=== PATIENT | female | born 1945 | race African-American/Black ===

== ENCOUNTER 2022-10-07 03:26 | Inpatient (IN) | payer OTHER, MEDICAID ==
[2022-10-07] VITALS (7 sets, daily range): BP systolic 142; BP diastolic 66; PULSE 71–80; RESP 12–22; TEMP 97.9; O2SAT 91–100
[~2022-10-07] VITALS: Ht 157.5 cm; Wt 82.9 kg
[2022-10-07 04:38] LABS: Basophils # (auto) 0 10 ^3/uL (0-0.2); Basophils % (auto) 0.7 % (0.0-2.0); Eosinophils # (auto) 0.1 10 ^3/uL (0-0.8); Eosinophils % (auto) 1.3 % (0.0-7.0); Hematocrit 33.2 % (36.0-46.0); Hemoglobin 10.4 g/dL (12.2-16.2); Lymphocytes % (auto) 20.4 % (10.0-50.0); Mean Corpuscular Hemoglobin 29.3 pg (28.0-32.0); Mean Corpuscular Hgb Conc. 31.4 g/dL (32.0-36.0); Mean Corpuscular Volume 93.5 fL (80.0-100.0); Monocytes # (auto) 0.5 10 ^3/uL (0-1.3); Monocytes % (auto) 9.8 % (0.0-12.0); Neutrophils # (auto) 3.4 10 ^3/uL (1.6-8.6); Neutrophils % (auto) 67.8 % (37.0-80.0); Nucleated Red Blood Cells % 0.2 %; Red Blood Cells 3.55 10^6/uL (4.0-5.20); Red Cell Distribution Width 17.7 % (11.8-14.3)
[2022-10-07 04:45] LABS: INR 1.04 (0.9-1.15); Partial Thromboplastin Time 29.5 SEC (24.5-34.5); Prothrombin Time 10.9 sec (9.3-11.8)
[2022-10-07 04:50] LABS: BUN/Creatinine Ratio 5.4 (10.0-20.0); Calcium 8.1 mg/dL (8.7-10.4); Magnesium 2.7 mg/dL (1.6-2.6); Potassium 3.7 mmol/L (3.5-5.1)
[2022-10-07 04:53] LABS: Bilirubin, Total 0.4 mg/dL (0.2-1.0); Total Protein 6.2 g/dL (6.4-8.2)
[2022-10-07] MEDS ORDERED: NITROGLYCERIN 0.4 MG SL TAB SL PRN (09:30)
[2022-10-07] MEDS ORDERED: ONDANSETRON HCL 4 MG/2 ML VIAL IV ONE (09:45)
[2022-10-07] MEDS ORDERED: ACETAMINOPHEN 500 MG TAB PO PRN (09:45)
[2022-10-07] MEDS ORDERED: ONDANSETRON HCL 4 MG/2 ML VIAL IV PRN (09:45)
[2022-10-07] MEDS ORDERED: CARVEDILOL 12.5 MG TAB PO SCH (10:00)
[2022-10-07] MEDS: IPRATROPIUM BROM 0.5 MG/2.5ML INH SOL NEB SCH ×2 (11:33→17:59)
[2022-10-07] MEDS: ALBUTEROL SULF 2.5 MG/0.5ML(0.5%) NEB SOLN NEB PRN ×2 (11:33→17:59)
[2022-10-07] MEDS: PANTOPRAZOLE 40 MG TAB PO SCH (11:40)
[2022-10-07 14:01] LABS: Urine Bacteria NONE SEEN /hpf (None Seen); Urine Blood TRACE /uL (Negative); Urine Clarity HAZY (Clear); Urine Color Colorless (Yellow); Urine Protein, UAD 2+ (Negative); Urine Specific Gravity 1.008 (1.001-1.035); Urine Urobilinogen Normal (Negative); Urine WBC 111 /hpf (0 - 5); Urine WBC Clumps PRESENT /hpf (None Seen); Urine pH 7.5 (5.0-8.0)
[2022-10-07] MEDS ORDERED: cefTRIAXone 1GM/50ML D5W 50 ML IV ONE (15:30)
[2022-10-07] MEDS ORDERED: DEXTROSE (50%) 50ML SYRG IV PRN (15:30)
[2022-10-07] MEDS ORDERED: hydrALAZINE HCL 20 MG/ML VL IV PRN (15:30)
[2022-10-07] MEDS: InsuLIN REG 1unit/0.01ml Soln (100units/ml) SC SCH ×2 (17:00→21:29)
[2022-10-07] MEDS: ACCU-CHEK COMFORT CURVE STRIP VI SCH ×2 (17:18→21:24)
[2022-10-07] MEDS: CARVEDILOL 12.5 MG TAB PO SCH (21:29)
[2022-10-07] MEDS: ATORVASTATIN 20 MG TAB PO SCH (21:29)
[2022-10-08] VITALS (17 sets, daily range): BP systolic 116–142; BP diastolic 42–54; PULSE 69–84; RESP 6–20; TEMP 97.8–98.6; O2SAT 94–100
[2022-10-08] MEDS: IPRATROPIUM BROM 0.5 MG/2.5ML INH SOL NEB SCH ×5 (01:13→22:54)
[2022-10-08] MEDS: ALBUTEROL SULF 2.5 MG/0.5ML(0.5%) NEB SOLN NEB PRN ×3 (01:13→11:45)
[2022-10-08] MEDS ORDERED: CARV25TA55 PO (04:43)
[2022-10-08] MEDS ORDERED: METO-517 PO (04:43)
[2022-10-08] MEDS ORDERED: PERCOT PO (04:43)
[2022-10-08] MEDS ORDERED: LOVA40TA72 PO (04:43)
[2022-10-08] MEDS ORDERED: SITA50TA PO (04:43)
[2022-10-08] MEDS ORDERED: ASCO500T11 PO (04:46)
[2022-10-08] MEDS ORDERED: CRAN1000 PO (04:46)
[2022-10-08] MEDS ORDERED: FOLI-119 PO (04:46)
[2022-10-08] MEDS ORDERED: FERR1TAB36 PO (04:46)
[2022-10-08] MEDS: ACCU-CHEK COMFORT CURVE STRIP VI SCH ×4 (06:55→22:13)
[2022-10-08] MEDS: InsuLIN REG 1unit/0.01ml Soln (100units/ml) SC SCH ×4 (06:56→22:17)
[2022-10-08] MEDS: PANTOPRAZOLE 40 MG TAB PO SCH (09:40)
[2022-10-08] MEDS: cefTRIAXone 1GM/50ML D5W 50 ML IV SCH (09:41)
[2022-10-08] MEDS: CARVEDILOL 12.5 MG TAB PO SCH ×2 (09:55→22:00)
[2022-10-08] MEDS: LISINOPRIL 20 MG TAB PO SCH (09:56)
[2022-10-08 12:00] LABS: Basophils # (auto) 0 10 ^3/uL (0-0.2); Eosinophils # (auto) 0.1 10 ^3/uL (0-0.8); Hemoglobin 9.8 g/dL (12.2-16.2); Lymphocytes # (auto) 1.5 10 ^3/uL (0.4-5.4); Neutrophils # (auto) 3.3 10 ^3/uL (1.6-8.6); Nucleated Red Blood Cells % 0.1 %; White Blood Cell 5.4 10^3/uL (4.4-10.8)
[2022-10-08 12:05] LABS: Basophils % (auto) 0.4 % (0.0-2.0); Eosinophils % (auto) 1.5 % (0.0-7.0); Hematocrit 31.5 % (36.0-46.0); Mean Corpuscular Hemoglobin 29.9 pg (28.0-32.0); Mean Corpuscular Hgb Conc. 31.1 g/dL (32.0-36.0); Mean Corpuscular Volume 96.2 fL (80.0-100.0); Monocytes # (auto) 0.5 10 ^3/uL (0-1.3); Monocytes % (auto) 10.1 % (0.0-12.0); Red Blood Cells 3.27 10^6/uL (4.0-5.20); Red Cell Distribution Width 17.4 % (11.8-14.3)
[2022-10-08 12:06] LABS: Anion Gap 7.3 (5-15); Calcium 8.7 mg/dL (8.5-10.1); Carbon Dioxide 35.7 mmol/L (20-30); Chloride 98 mmol/L (98-107); Potassium 3.4 mmol/L (3.5-5.1); Sodium 141 mmol/L (136-145)
[2022-10-08 12:12] LABS: BUN/Creatinine Ratio 6.3 (10.0-20.0); Blood Urea Nitrogen 29 mg/dL (9-23); Glucose 86 mg/dL (74-106)
[2022-10-08 16:24] LABS: Free T4 (Free Thyroxine) 1.91 ng/dL (0.89-1.76); T3 Total 0.77 ng/mL (0.60-1.81)
[2022-10-08] MEDS: ATORVASTATIN 20 MG TAB PO SCH (21:59)
[2022-10-09] VITALS (9 sets, daily range): BP systolic 122–145; BP diastolic 37–52; PULSE 69–81; RESP 16–18; TEMP 98.1–98.9; O2SAT 99–100
[2022-10-09] MEDS: ACCU-CHEK COMFORT CURVE STRIP VI SCH ×3 (06:18→17:23)
[2022-10-09] MEDS: InsuLIN REG 1unit/0.01ml Soln (100units/ml) SC SCH ×3 (06:19→17:00)
[2022-10-09 06:27] LABS: Basophils # (auto) 0 10 ^3/uL (0-0.2); Eosinophils # (auto) 0.1 10 ^3/uL (0-0.8); Lymphocytes # (auto) 1.3 10 ^3/uL (0.4-5.4); Nucleated Red Blood Cells % 0.2 %
[2022-10-09 06:29] LABS: Basophils % (auto) 0.5 % (0.0-2.0); Eosinophils % (auto) 1.5 % (0.0-7.0); Hematocrit 33.1 % (36.0-46.0); Hemoglobin 10.4 g/dL (12.2-16.2); Mean Corpuscular Hemoglobin 30.7 pg (28.0-32.0); Mean Corpuscular Hgb Conc. 31.5 g/dL (32.0-36.0); Mean Corpuscular Volume 97.5 fL (80.0-100.0); Monocytes # (auto) 0.6 10 ^3/uL (0-1.3); Monocytes % (auto) 8.7 % (0.0-12.0); Neutrophils # (auto) 4.5 10 ^3/uL (1.6-8.6); Neutrophils % (auto) 69.3 % (37.0-80.0); Red Cell Distribution Width 17.4 % (11.8-14.3); White Blood Cell 6.4 10^3/uL (4.4-10.8)
[2022-10-09 06:31] LABS: Chloride 100 mmol/L (98-107); Sodium 139 mmol/L (136-145)
[2022-10-09 06:32] LABS: Anion Gap 5.8 (5-15); Calcium 8.7 mg/dL (8.7-10.4); Carbon Dioxide 33.2 mmol/L (20-30)
[2022-10-09 06:37] LABS: Blood Urea Nitrogen 24 mg/dL (9-23); Glucose 104 mg/dL (74-106)
[2022-10-09] MEDS: ALBUTEROL SULF 2.5 MG/0.5ML(0.5%) NEB SOLN NEB PRN ×2 (06:39→12:23)
[2022-10-09] MEDS: IPRATROPIUM BROM 0.5 MG/2.5ML INH SOL NEB SCH ×3 (06:39→18:00)
[2022-10-09] MEDS: cefTRIAXone 1GM/50ML D5W 50 ML IV SCH (08:59)
[2022-10-09] MEDS: LISINOPRIL 20 MG TAB PO SCH (09:28)
[2022-10-09] MEDS: CARVEDILOL 12.5 MG TAB PO SCH (09:28)
[2022-10-09] MEDS: PANTOPRAZOLE 40 MG TAB PO SCH (09:28)
[2022-10-09] MEDS ORDERED: CEFD300C2 PO (14:35)
== END 2022-10-09 18:20 | disposition home or self-care (01) | DRG 640 ==
LOC: ER 03:26 → EDBD 03:26 → OVERFLOW 13:41 → WEST WING 23:59
PROVIDERS: ADMIT Internal Medicine; ATTEND Student in an Organized Health Care Education/Training Program
PROC: 5A1D70Z Performance of Urinary Filtration, Intermittent, Less than 6 Hours Per Day (ICD-10-PCS; principal; 2022-10-08)
DX: E86.0 Dehydration (principal); N18.6 End stage renal disease; G45.0 Vertebro-basilar artery syndrome; I12.0 Hypertensive chronic kidney disease with stage 5 chronic kidney disease or end stage renal disease; I95.3 Hypotension of hemodialysis; N30.90 Cystitis, unspecified without hematuria; E11.22 Type 2 diabetes mellitus with diabetic chronic kidney disease; E78.5 Hyperlipidemia, unspecified; J45.909 Unspecified asthma, uncomplicated; K80.20 Calculus of gallbladder without cholecystitis without obstruction; R55 Syncope and collapse; E66.9 Obesity, unspecified; D63.1 Anemia in chronic kidney disease; M89.8X9 Other specified disorders of bone, unspecified site; Z99.2 Dependence on renal dialysis; Z90.49 Acquired absence of other specified parts of digestive tract
CPT/HCPCS: 36415; 70450; 71045; 74176; 80048; 80053; 81001; 82962; 83036; 83735; 83880; 84439; 84443; 84480; 84484; 85025; 85610; 85730; 87081; 87086; 90935; 93005; 93306; 93886; 94640; 96365; 96375; G0378; J0696; J1815; J2405

== ENCOUNTER 2025-01-05 03:28 | Inpatient (IN) | payer OTHER ==
[~2025-01-05] VITALS: Ht 157.5 cm; Wt 66.1 kg
[~2025-01-05 03:28] MED LIST: ASCO500T11 PO; CARV25TA55 PO; CEFD300C2 PO; CRAN1000 PO; FERR1TAB36 PO; FOLI-119 PO; LOVA40TA72 PO; METO10TA4 PO; PERCOT PO; SITA50TA PO
--- NOTE | 2025-01-05 03:48 | ECG ---
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
--- NOTE | 2025-01-05 03:53 | ED.PDOC ---
History of Present Illness HPI Comments 79 year old female with PMHx ESRD, asthma, HTN, DM, presents to the ED via EMS with a chief complaint of shortness of breath onset 10 days. Per EMS, patient has dialysis fistula on LT arm, 3 weeks ago had a blockage, was removed and new fistula was placed. For the past 10 days, patient has been experiencing LT arm swelling, pain, LT breast swelling, LT facial swelling, shortness of breath, chest pressure. Patient gets dialysis Thursday, , Thursday. Has been seen at [facility] for similar symptoms. Patient is on home O2, 2L NC. Denies fever, chills, nausea, vomiting, diarrhea, numbness/tingling, abdominal pain, hematemesis, headache. No other symptoms or modifying factors present at this time. PHYSICAL EXAM: General: Awake, alert and oriented. Skin: Skin in warm, dry and intact. Appropriate color for ethnicity. HEENT: The head is normocephalic and atraumatic. Conjunctivae are clear without exudates or hemorrhage. Sclera is non-icteric. Eyelids are normal in appearance without swelling or lesions. Oral mucosa is pink and moist Neck: The neck is supple with normal range of motion. No JVD. Cardiac: Heart rate and rhythm are normal. No murmurs, gallops, or rubs are auscultated. Respiratory: No signs of respiratory distress. Lung sounds are clear in all lobes bilaterally without rales, rhonchi, or wheezes. Abdominal: Abdomen is soft, non-tender without distention, guarding or rigidity. Bowel sounds are present and normoactive in all four quadrants. Extremities: LT upper extremity swelling,mild erythema Neurological: The patient is awake, alert and oriented to person, place, and time with normal speech. Speech is clear. There is no facial asymmetry. Psychiatric: Appropriate mood and affect. Good judgement and insight. REVIEW OF SYSTEMS: General: No fever, no chills, or fatigue HEENT: No sore throat, no earache, no congestion, no neck pain. Cardiac: chest pain. No palpitations. Lungs: shortness of breath, no cough. GI: No nausea, no vomiting, no diarrhea, no constipation, no abdominal pain : No dysuria, frequency, or urgency. No hematuria. Musculoskeletal: LT arm swelling, LT breast swelling. Skin: No rash, no itching. Neuro: No headache, no dizziness, no weakness (And as sated in HPI) Chief Complaint: Shortness of Breath Time Seen by MD: 03:39 Reviewed Notes: Medications, Allergies Allergies: Coded Allergies: Aspirin (Verified Allergy, Unknown, 10/07/22) Penicillins (Verified Allergy, Unknown, 10/07/22) Home Meds Active Scripts Cefdinir (Cefdinir) 300 Mg Cap, 300 MG PO BID for 7 Days, #14 CAP Prov:DEBORAH VILLATORO MD 10/09/22 Reported Medications Ferrous Sulfate (Iron (Ferrous Sulfate)) 50 Mg Tab, 65 MG PO, TAB 10/08/22 Folic Acid (Folic Acid) 1 Mg Tab, 1 MG PO DAILY for 30 Days, MG 10/08/22 Cranberry (Cranberry Juice Extract) 1,000 Mg Cap, 1500 MG PO DAILY, CAP 10/08/22 Ascorbic Acid (VITAMIN C TABLET) 500 Mg Tb, 1 TAB PO DAILY, #30 TAB 3 Refills 10/08/22 Oxycodone W/ Acetaminophen (Percocet 5/325MG) 1 Tab Tb, 2 TAB PO TID, #90 TAB 10/08/22 Metoclopramide HCl (Metoclopramide Hydrochlor) 10 Mg Tab, 1 TAB PO BID 10/08/22 Carvedilol (Carvedilol) 25 Mg Tab, 1 TAB PO BID 10/08/22 Lovastatin (Lovastatin) 40 Mg Tab, 1 TAB PO DAILY 10/08/22 Sitagliptin Phosphate (Januvia) 50 Mg Tab, 1 TAB PO DAILY 10/08/22 Information Source: Patient, Emergency Med Personnel Mode of Arrival: EMS Severity: Moderate Timing: Days Prehospital treatment: None Past Medical History PAST MEDICAL HISTORY: Asthma, Cancer, DM, ESRD, HTN Surgical History: Appendectomy, Hernia Repair ELECTRICAL SIGN WIRER History: No Pertinent ELECTRICAL SIGN WIRER History Family History Family History: Reviewed,noncontributory to illness Social History Smoker: Non-Smoker Alcohol: Denies ETOH Use Drugs: Denies Drug Use Lives In: Home Was a procedure done? Was a procedure done?: No EKG EKG : Pulse Rate (adult): 87 Cardiac Rhythm: NSR Differential Dx Considerations may include: Differential diagnoses considered includebut arenot limited to acute Bronchitis, Asthma, COPD, Pneumothorax, PE, CHF, Pulmonary HTN, Anemia, CO Poisoning, Methemoglobinemia, Hyperventilation, Metabolic Acidosis, Pulmonary Edema, Pneumonia, ACS, Pericardial Tamponade, Anxiety, other X-Ray, Labs, Meds, VS Vital Signs Date Time Temp Pulse Resp B/P (MAP) Pulse Ox O2 Delivery O2 Flow Rate FiO2 01/05/25 03:53 87 01/05/25 03:38 98.6 94 22 196/68 97 98.6 01/05/25 03:37 87 Lab Test 01/05/25 04:27 Range/Units White Blood Count 4.5 4.4-10.8 10^3/uL Red Blood Count 3.58 L 4.0-5.20 10^6/uL Hemoglobin 10.9 L 12.2-16.2 g/dL Hematocrit 35.6 L 36.0-46.0 % Mean Corpuscular Volume 99.7 80.0-100.0 fL Mean Corpuscular Hemoglobin 30.4 28.0-32.0 pg Mean Corpuscular Hemoglobin Concent 30.5 L 32.0-36.0 g/dL Red Cell Distribution Width 20.6 H 11.8-14.3 % Platelet Count 129 L 140-450 10^3/uL Mean Platelet Volume 8.4 6.9-10.8 fL Neutrophils (%) (Auto) 55.7 37.0-80.0 % Lymphocytes (%) (Auto) 29.4 10.0-50.0 % Monocytes (%) (Auto) 12.1 H 0.0-12.0 % Eosinophils (%) (Auto) 1.4 0.0-7.0 % Basophils (%) (Auto) 1.4 0.0-2.0 % Neutrophils # (Auto) 2.5 1.6-8.6 10 ^3/uL Lymphocytes # (Auto) 1.3 0.4-5.4 10 ^3/uL Monocytes # (Auto) 0.5 0-1.3 10 ^3/uL Eosinophils # (Auto) 0.1 0-0.8 10 ^3/uL Basophils # (Auto) 0.1 0-0.2 10 ^3/uL Nucleated Red Blood Cells 0.2 % Sodium Level 143 136-145 mmol/L Potassium Level 4.0 3.5-5.1 mmol/L Chloride Level 103 98-107 mmol/L Carbon Dioxide Level 29 20-31 mmol/L Anion Gap 11 5-15 Blood Urea Nitrogen 33 H 9-23 mg/dL Creatinine 6.71 H 0.550-1.02 mg/dL Glomerular Filtration Rate Calc 6 >90 mL/min BUN/Creatinine Ratio 4.9 L 10.0-20.0 Serum Glucose 110 H 74-106 mg/dL Calcium Level 9.2 8.7-10.4 mg/dL Total Bilirubin 0.3 0.2-1.0 mg/dL Direct Bilirubin 0.1 <0.3 mg/dL Aspartate Amino Transferase (AST) 20 13-40 U/L Alanine Aminotransferase (ALT) 14 7-40 U/L Alkaline Phosphatase 77 46-116 U/L Troponin I High Sensitivity 22 </=34 ng/L B-Type Natriuretic Peptide 589.69 0-100 pg/mL Total Protein 6.4 5.7-8.2 g/dL Albumin 3.6 3.2-4.8 g/dL Time of 1ST Reevaluation: 03:47 Reevaluation 1ST: Unchanged Patient Education/Counseling: Need For Follow Up Family Education/Counseling: No Family Present SEPSIS Sepsis Screen Physician Orders Electrocardigram (01/05/25 03:36) Chest Xray 1 View (01/05/25 04:06) Vital Signs Date Time Temp Pulse Resp B/P (MAP) Pulse Ox O2 Delivery O2 Flow Rate FiO2 01/05/25 03:53 87 01/05/25 03:38 98.6 94 22 196/68 97 98.6 01/05/25 03:37 87 Laboratory Tests Test 01/05/25 04:27 White Blood Count 4.5 10^3/uL (4.4-10.8) Departure 1 Departure Time of Disposition: 05:02 Impression: Primary Impression: Left upper extremity swelling Disposition: ADMITTED INPATIENT Condition: Stable Comments MDM: 79 yo female with RUE swelling. She reports recently having negative RUE US for DVT. Patient admitted to hospitalist service for further treatment, evaluation and monitoring. Pending CT chest w/ contrast to evaluate for possible venous stenosis, mass or other potential etiology of patient's symptoms. Critical Care Note Critical Care Time?: No Stability Stability form required: No Heart Score Heart Score: Heart Score Response (Comments) Value History N/A 0 EKG N/A 0 Age N/A 0 Risk Factors N/A 0 Troponin N/A 0 Total 0 I personally scribed for GENIA GOMEZ MD ([email or web address]) on 01/05/25 at 03:53. Electronically submitted by Yasmin Avila ([email or web address]). I personally scribed for GENIA GOMEZ MD ([email or web address]) on 01/05/25 at 03:53. Electronically submitted by Yasmin Avila ([email or web address]). GENIA GOMEZ MD Jan 05, 2025 03:53
[2025-01-05 04:37] LABS: Hematocrit 35.6 % (36.0-46.0); Hemoglobin 10.9 g/dL (12.2-16.2)
[2025-01-05 04:39] LABS: Mean Corpuscular Hemoglobin 30.4 pg (28.0-32.0); Mean Corpuscular Volume 99.7 fL (80.0-100.0); Nucleated Red Blood Cells % 0.2 %
[2025-01-05 04:44] LABS: Chloride 103 mmol/L (98-107); Potassium 4.0 mmol/L (3.5-5.1); Sodium 143 mmol/L (136-145)
[2025-01-05 04:45] LABS: Calcium 9.2 mg/dL (8.7-10.4)
[2025-01-05 04:46] LABS: Anion Gap 11 (5-15); Carbon Dioxide 29 mmol/L (20-31)
[2025-01-05 04:50] LABS: BUN/Creatinine Ratio 4.9 (10.0-20.0); Glucose 110 mg/dL (74-106)
[2025-01-05 04:51] LABS: Blood Urea Nitrogen 33 mg/dL (9-23)
--- NOTE | 2025-01-05 06:12 | DVHHPRES ---
History of Present Illness Resident Creating Document: ARIELLA VALDES RESIDENT History of Present Illness Ms Stacey Lane, 79-year-old female with previous history of ESRD on dialysis TTS, GFR 6, minimal urine producing, left arm fistula, type 2 diabetes mellitus [id number], hypertension, asthma, history of colon mass resection, umbilical hernia repair, tonsillectomy, appendectomy, total abdominal hysterectomy, bilateral feet surgery presented to the ER with the complaints of shortness of breaths, exacerbates by deep breathing. She also reports having left-sided chest pain, she describes the chest pain as oppressive. The patient also has significant left arm and left breast swelling and erythema. She denies any fever, however she reports having chills. The patient moved to [place], previously she used to live here, this time unfortunately the patient came to attend her daughter's , who on last Thursday. She denies any other complaints. Allergies: Penicillin, aspirin, gabapentin, Tea tree well, oranges, shrimp, lidocaine or Novocain or some anesthetics the patient can not recall which was used during her surgery in [place]. Past medical history: Wca-joonpqf-sccruwskg diabetes mellitus, ESRD on dialysis, hypertension, asthma Past surgical history: As above Home medications: Januvia, carvedilol 12.5, atorvastatin, folic acid, multivitamin Smoking: Quit 15 years ago. Previously 1 pack per 2 months occasionally. Tw enty-five pack years Alcohol: Quit. Last drink several years ago Drugs: Previously marijuana. Does not use drugs Code status: Full code Review of Systems Allergies: Coded Allergies: Aspirin (Verified Allergy, Unknown, 10/07/22) Penicillins (Verified Allergy, Unknown, 10/07/22) Exam Vital Signs Vital Signs Date Time Temp Pulse Resp B/P (MAP) Pulse Ox O2 Delivery O2 Flow Rate FiO2 01/05/25 03:53 87 01/05/25 03:38 98.6 22 196/68 97 98.6 Exam Pt is lying on bed General Appearance: Alert, Oriented X3, Cooperative, Mild distress HEENT: Atraumatic, Mucous membranes moist/pink Breast exam: Left breast significant swelling erythema Respiratory: Clear to auscultation, Normal air movement, No added sounds Cardiovascular: Regular rate, Normal S1, Normal S2, No murmurs Abdominal/ : Active bowel sounds, Soft, no distention, no tenderness Extremities: Left upper arm significant swelling and erythema noted, bilateral 1+ pitting edema noted Skin: No Significant rash, except past surgical scars Neuro: Normal speech, sensorimotor deficits none Psych/Mental Status: Mental status NL, Mood NL 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 construction 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 Labs/Xrays Labs Test 01/05/25 04:27 Range/Units White Blood Count 4.5 4.4-10.8 10^3/uL Red Blood Count 3.58 L 4.0-5.20 10^6/uL Hemoglobin 10.9 L 12.2-16.2 g/dL Hematocrit 35.6 L 36.0-46.0 % Mean Corpuscular Volume 99.7 80.0-100.0 fL Mean Corpuscular Hemoglobin 30.4 28.0-32.0 pg Mean Corpuscular Hemoglobin Concent 30.5 L 32.0-36.0 g/dL Red Cell Distribution Width 20.6 H 11.8-14.3 % Platelet Count 129 L 140-450 10^3/uL Mean Platelet Volume 8.4 6.9-10.8 fL Neutrophils (%) (Auto) 55.7 37.0-80.0 % Lymphocytes (%) (Auto) 29.4 10.0-50.0 % Monocytes (%) (Auto) 12.1 H 0.0-12.0 % Eosinophils (%) (Auto) 1.4 0.0-7.0 % Basophils (%) (Auto) 1.4 0.0-2.0 % Neutrophils # (Auto) 2.5 1.6-8.6 10 ^3/uL Lymphocytes # (Auto) 1.3 0.4-5.4 10 ^3/uL Monocytes # (Auto) 0.5 0-1.3 10 ^3/uL Eosinophils # (Auto) 0.1 0-0.8 10 ^3/uL Basophils # (Auto) 0.1 0-0.2 10 ^3/uL Nucleated Red Blood Cells 0.2 % Sodium Level 143 136-145 mmol/L Potassium Level 4.0 3.5-5.1 mmol/L Chloride Level 103 98-107 mmol/L Carbon Dioxide Level 29 20-31 mmol/L Anion Gap 11 5-15 Blood Urea Nitrogen 33 H 9-23 mg/dL Creatinine 6.71 H 0.550-1.02 mg/dL Glomerular Filtration Rate Calc 6 >90 mL/min BUN/Creatinine Ratio 4.9 L 10.0-20.0 Serum Glucose 110 H 74-106 mg/dL Calcium Level 9.2 8.7-10.4 mg/dL SEPSIS Sepsis Screen Date sepsis recognized/suspect: Jan 05, 2025 Time Sepsis recognized/suspect: 344 Recent Procedure: No On Antibiotic Therapy: No Respiratory Rate >20: No Heart Rate >90: Yes Temp<36 C (96.8 F) or >38.3 C: No SBP <90 or MAP <65 mmHG: No New Acute Mental Status Change: No Is the patient on CPAP, BIPAP,: No Physician Orders Chest With Contrast (01/05/25 04:06) Chest Xray 1 View (01/05/25 04:06) Admit (01/05/25 06:08) Complete Blood Count (01/06/25 04:00) Comprehensive Metabolic Panel (01/06/25 04:00) Nitroglycerin Sublingual (Ntrostat Subli (01/05/25 06:15) Morphine Sulfate Injection (01/05/25 06:15) Oxygen By Nasal Cannula (01/05/25 06:08) Stat Ekg For Chest Pain (01/05/25 06:08) Notify Of Changes From Base (01/05/25 06:08) Pararescue Manager For 24 Hours (01/05/25 06:08) Emergency Dysrhythmia Protocol (01/05/25 06:08) Rhythm Strips Once Every Shift (01/05/25 06:08) Vital Signs Date Time Temp Pulse Resp B/P (MAP) Pulse Ox O2 Delivery O2 Flow Rate FiO2 01/05/25 03:53 87 01/05/25 03:38 98.6 94 22 196/68 97 98.6 01/05/25 03:37 87 Laboratory Tests Test 01/05/25 04:27 White Blood Count 4.5 10^3/uL (4.4-10.8) Assessment/Plan Assessment/Plan Chest pain rule out ACS EKG and troponin ordered ESRD on hemodialysis Nephrology consulted Left upper arm swelling rule out DVT Left upper arm ultrasound ordered Left breast swelling rule out Left breast ultrasound GI prophylaxis: Pantoprazole DVT prophylaxis: Heparin 5000 units b.i.d. Diet: Renal Goals of care discussed with the patient for more than 27 minutes: Full code status Case discussed with Dr. Montelongo , patient and RN Plan discussed with: Patient, Other (RN) My Orders Orders - ARIELLA VALDES RESIDENT Procedure Category Date Status Time Admit ADMIT 01/05/25 Transmitted 06:08 Complete Blood Count LAB 01/06/25 Verified 04:00 Comprehensive LAB 01/06/25 Verified Metabolic Panel 04:00 Nitroglycerin PHA 01/05/25 Transmitted Sublingual (Ntrostat 06:15 Morphine Sulfate PHA 01/05/25 Transmitted Injection 06:15 Oxygen By Nasal RT 01/05/25 Transmitted Cannula 06:08 Stat Ekg For Chest [facility] 01/05/25 Transmitted Pain 06:08 Notify Md Of Changes [facility] 01/05/25 Transmitted From Base 06:08 Pararescue Manager For [facility] 01/05/25 Transmitted 24 Hours 06:08 Emergency Dysrhythmia [facility] 01/05/25 Transmitted Protocol 06:08 Rhythm Strips Once [facility] 01/05/25 Transmitted Every Shift 06:08 Date of Service: Jan 05, 2025 Billing Provider: AVI MONTELONGO MD Common Visit Codes: 33476-TEKCWMD INP/OBS CARE (HIGH) Secondary Visit Codes: 39048-[id number] CARE PLAN 30 MINUTES ARIELLA VALDES RESIDENT Jan 05, 2025 06:12
[2025-01-05] MEDS ORDERED: MORPHINE SULFATE INJ 2 MG/ml SYRG IV PRN (06:15)
[2025-01-05] MEDS ORDERED: NITROGLYCERIN 0.4 MG SL TAB SL PRN (06:15)
[2025-01-05] MEDS: IOHEXOL 300 MG/ML 100ML BOTTLE IJ ONE ×2 (06:28→13:16)
--- NOTE | 2025-01-05 07:06 | DVH ---
CHEST RADIOGRAPH Indication: Left upper extremity swelling. Technique: Single frontal view of the chest was obtained Comparison: XY CHEST PORTABLE on DOS: 10/07/22 FINDINGS: Lines and Tubes: None Lungs: Left basilar opacity noted. Pleura: No effusion. No pneumothorax. Cardiomediastinal contours: Cardiomegaly. Bones: No acute osseous abnormality. IMPRESSION: 1. Left basilar opacity which may reflect atelectasis or pneumonia. 2. Cardiomegaly.
[2025-01-05 07:12] LABS: INR 0.98 (0.9-1.15); Partial Thromboplastin Time 27.8 SEC (24.5-34.5); Prothrombin Time 10.4 sec (9.3-11.8)
--- NOTE | 2025-01-05 07:51 | DVH ---
US OF THE LEFT BREAST INDICATION: Swelling of the left breast. TECHNIQUE: Targeted ultrasound of the left breast was performed, scanning the area of clinical concern, assisted by color doppler technique. COMPARISON: No prior breast imaging was available for comparison at the time of dictation. FINDINGS: The area scanned includes the 12:00 p.m. and 1:00 a.m. positions of the left breast. The patient was reportedly unable to raise her arm in order to scan the axillary region. There is prominent subcutaneous edema in the area of clinical concern, which is nonspecific, may be seen with cellulitis in the appropriate clinical setting. There is a focal anechoic structure measuring 2.3 x 1.4 x 1.7 cm in the 1 o'clock position approximately 3 cm from the nipple, possibly a mildly complex cyst. No significant peripheral vascular flow to suggest abscess. No solid mass demonstrated. IMPRESSION: 1. Subcutaneous edema in the area of clinical concern in the left breast, may be due to cellulitis in the appropriate clinical setting. 2. Well-circumscribed, smoothly marginated anechoic mass in the left breast 1 o'clock position approximately 3 cm from the nipple, most likely a mildly complex cyst. Abscess would be less likely but not completely excluded in the setting of overlying soft tissue infection. No solid mass identified to suggest malignancy, although evaluation for malignancy is incomplete without mammogram. 3. ACR Bi Rads Category: Category 0-"INCOMPLETE" (Needs Additional Imaging Evaluation))
--- NOTE | 2025-01-05 07:56 | DVH ---
LEFT Upper Extremity Venous Duplex Clinical History: Left upper extremity swelling Comparison: None Findings: Duplex Doppler evaluation of the venous system of the LEFT lower neck and upper extremity including color Doppler and spectral/pulsed waveform analysis was performed. The internal jugular vein demonstrates appropriate compressibility and waveform variability. The subclavian vein is patent on color Doppler evaluation without intraluminal thrombus and demonstrates waveform variability. The visualized portion of the brachiocephalic vein is patent on color Doppler evaluation without intraluminal thrombus and demonstrates waveform variability. The axillary vein demonstrates appropriate compressibility and waveform variability. Brachial vein thru cephalic vein not seen . Impression: No venous thrombus identified in the LEFT upper extremity vessels evaluated above. AV fistula is patent. If clinical concern/symptoms persist or worsen, short-interval follow-up study is suggested.
[2025-01-05] MEDS: CARVEDILOL 12.5 MG TAB PO SCH (10:00)
[2025-01-05] MEDS: DOXYCYCLINE 100MG/100ML 100 ML IV SCH (10:00)
[2025-01-05] MEDS: HEPARIN SODIUM (PORCINE) 5000 UNITS/ML 1ML VIAL SC SCH (10:00)
[2025-01-05 11:27] LABS: COVID19 ANTIGEN SOFIA FIA NEGATIVE (NEGATIVE)
[2025-01-05 13:34] LABS: Albumin 3.6 g/dL (3.2-4.8); Alkaline Phosphatase 77.0 U/L (46-116); Bilirubin, Direct 0.1 mg/dL (<0.3); Bilirubin, Total 0.3 mg/dL (0.2-1.0); Total Protein 6.4 g/dL (5.7-8.2)
[2025-01-05 14:26] LABS: Alanine Aminotransferase 14.0 U/L (7-40)
[2025-01-05] MEDS: MEROPENEM 500MG IVPB 50 ML IV ONE (15:16)
--- NOTE | 2025-01-05 16:07 | DVHPNRES ---
Progress Note Date Seen: Jan 05, 2025 Resident Creating Document: MEG HODGE Medical Necessity Reason Pt with a Central, PICC or Fol: No Subjective Review of Systems Patient is a 79-year-old female with past medical history of ESRD on HD via left arm AVF, DM type II, HTN, HLD, asthma, colon cancer, presented to [facility] ED with complaint of shortness of breath for the past 10 days, which worsens with deep breathing, and associated left-sided chest pain. She also reports swelling and pain in the left arm, swelling of the left breast, and left facial swelling. She denies fever, chills, nausea, vomiting, diarrhea, abdominal pain, headache, or neurological symptoms. She uses home oxygen at 2 L via nasal cannula. The patients last dialysis session was on January 03, at [facility], with a net ultrafiltration of 1.5 liters. She reports that three weeks ago, her previous fistula became blocked and was replaced with a new fistula in the left arm. The patient moved to [place], previously she used to live here, this time unfortunately the patient came to attend her daughter's , who on last Thursday. On arrival, potassium was 4.0 mmol/L. Chest X- ray revealed a left basilar opacity, and breast ultrasound suggested possible cellulitis. She has been started on intravenous antibiotics. Nephrology was consulted for dialysis management. The patient has minimal urine output and a GFR of 6 mL/min. Past medical history: [id number] diabetes mellitus, ESRD on dialysis (TTS) via a left arm arteriovenous fistula, hypertension, asthma Past surgical history: Umbilical hernia repair, tonsillectomy, appendectomy, total abdominal hysterectomy, and bilateral foot surgeries Home medications: Januvia, carvedilol 12.5, atorvastatin, folic acid, multivitamin Smoking: Quit 15 years ago. Previously 1 pack per 2 months occasionally. Twenty-five pack years Alcohol: Quit. Last drink several years ago Drugs: Previously marijuana. Does not use drugs Allergies: Penicillin, aspirin, gabapentin, Tea tree well, oranges, shrimp, lidocaine or Novocain or some anesthetics the patient can not recall which was used during her surgery in [place]. Patient seen and examined at bedside. Patient is alert and oriented to time, place person and responding to all questions. Eyes: No Pain, No Vision change, No Conjunctivae inflammation, No Eyelid inflammation, No Other, No Redness ENT: No Ear pain, No Ear discharge, No Nose pain, No Nose discharge, No Nose congestion, No Mouth pain, No Mouth swelling, No Throat pain, No Throat swelling, No Other Cardiovascular: Chest Pain, No Palpitations, No Orthopnea, No Paroxysmal No Dyspnea, Edema, No Lt Headedness, No Other Respiratory: No Cough, No Dry, No Shortness of breath, No SOB with exertion, No Wheezing, No Hemoptysis, No Pleuritic Pain, No Sputum, No Other Gastrointestinal: No Nausea, No Vomiting, No Abdominal Pain, No Diarrhea, No Constipation, No Melena, No Hematochezia, No Other Genitourinary: No Dysuria, No Frequency, No Incontinence, No Hematuria, No Retention, No Other Musculoskeletal: No other, No neck pain, No shoulder pain, arm pain, No back pain, No hand pain, No leg pain, No foot pain Skin: No Rash, No Lesions, No Jaundice, No Bruising, No Other Objective vital signs Vital Sign Date Time Temp Pulse Resp B/P (MAP) Pulse Ox O2 Delivery O2 Flow Rate FiO2 01/05/25 14:37 67 131/82 01/05/25 11:30 16 96 01/05/25 03:38 98.6 98.6 medications Current Medications Medications Dose Ordered Sig/Desiree Route Start Time Stop Time Status Last Admin Dose Admin Nitroglycerin 0.4 mg Q5MINP PRN SL 01/05/25 06:15 Morphine Sulfate 2 mg Q30M PRN IV 01/05/25 06:15 Carvedilol 12.5 mg Q12HR PO 01/05/25 10:00 01/05/25 10:00 12.5 MG Heparin Sodium (Porcine) 5,000 units Q12HR SC 01/05/25 10:00 01/05/25 10:00 5,000 UNITS Pantoprazole Sodium 40 mg DAILY@0600 PO 01/06/25 06:00 Ceftriaxone Sodium 50 ml @ 100 mls/hr DAILY@09 IV 01/05/25 10:00 01/05/25 10:00 100 MLS/HR Doxycycline Hyclate 100 ml @ 50 mls/hr Q12H IV 01/05/25 10:00 01/05/25 10:00 50 MLS/HR Meropenem 50 ml @ 17 mls/hr DAILY IV 01/06/25 10:00 Future Hold Examination General Appearance: Cooperative. Well developed. Well nourished. NAD Head Exam: Normal inspection Neck Exam: Normal inspection. Non-tender. Normal alignment Pulmonary/Respiratory: Chest non-tender. Clear bilateral breath sounds, no crackles, no wheezing. Cardiovascular/Chest: Regular rate and rhythm. No murmurs. No JVD. Peripheral Pulses: 2+ Radial (R). 2+ Radial (L). 2+ Pedal (R). 2+ Pedal (L) Abdominal Exam: Normal bowel sounds. Soft. normal abdomen, no visible veins, Nontender. No hepatospenomegaly. No masses Ankle Exam: Negative ankle edema Breast exam: Left breast significant swelling erythema Upper Extremities: Left arm swelling and tenderness around AV fistula site. Erythema. No drainage noted. Lower Extremities: bilateral 1+ pitting edema noted Neuro/Mental Status: A&O x4. Coherent. Thoughts/Psych: Normal thought pattern. Appropriate mood and affect. Good judgement and insight Skin Exam: Normal inspection. Normal color. Warm. Dry laboratory and microbiology Laboratory Tests 01/05/25 04:27 Test 01/05/25 04:27 Range/Units Serum Glucose 110 H 74-106 mg/dL Labs and/or images reviewed: Labs reviewed by me, Image(s) reviewed by me Problem List/Assessment/Plan Problem List/Assessment/Plan Problem List/Assessment/Plan Left breast and upper extremity cellulitis Left-sided AV fistula arteriovenous fistula Possible left breast abscess Rule out DVT Upper Extremity CT: Extensive surrounding subcutaneous adipose tissue edema and skin thickening of the left upper extremity with left-sided arteriovenous fistula. Chest CT: Significant asymmetric swelling of the left upper extremity and left breast with dilated left axillary and upper extremity venous structures. Partial visualization of arteriovenous fistula incompletely characterized without intravenous contrast. Oval-shaped hyperintense structure located within the left lateral breast of indeterminate etiology. Asymmetric left breast skin thickening and swelling. Extremity Venous Study: No venous thrombus identified in the LEFT upper extremity vessels evaluated above. AV fistula is patent. Breast US: Subcutaneous edema in the area of clinical concern in the left breast, may be due to cellulitis in the appropriate clinical setting. Well- circumscribed, smoothly marginated anechoic mass in the left breast 1 o'clock position approximately 3 cm from the nipple, most likely a mildly complex cyst. Abscess would be less likely but not completely excluded in the setting of overlying soft tissue infection. No solid mass identified to suggest malignancy, although evaluation for malignancy is incomplete without mammogram. Echocardiogram: Left ventricular function is preserved at 65% with normal RV function. Vascular consult Start Meropenem 500 mg IV daily Carvedilol 12.5 mg p.o. q.12 Ceftriaxone Doxycycline Heparin 5000 units SC q12h pain management with morphine and [place] sodium chloride 0.9% ESRD on hemodialysis Nephrology consulted Left basilar atelectasis or pneumonia Cardiomegaly Chest X-ray: Left basilar opacity which may reflect atelectasis or pneumonia. Cardiomegaly. Type 2 diabetes mellitus A1c Essential hypertension monitor BP Hydralazine 10 mg q6h Diet: Renal Goals of care: Full code, discussed for >30 minutes on 01/05/25 Plan discussed with patient Plan discussed with Dr. Lucero Plan discussed with: Patient Date of Service: Jan 05, 2025 Billing Provider: AG LUCERO MD Common Visit Codes: [id number] INP/OBS CARE(HIGH) MEG HODGE RESIDENT Jan 05, 2025 16:07 ARIELLA BAKER RESIDENT Jan 07, 2025 13:16 AG LUCERO MD Jan 17, 2025 20:46
--- NOTE | 2025-01-05 16:40 | MEDREC ---
[facility] ASP Intervention Section I [facility] ASP Intervention: Review courses of therapy (Consider d/c meropenem, no history of ESBL, pending labs.) MARIO SALEH [facility] RESIDENT Jan 05, 2025 16:40
--- NOTE | 2025-01-05 16:54 | DVH ---
EXAM: CT CHEST WITHOUT CONTRAST INDICATION: breast abcess TECHNIQUE: Noncontrast axial images of the chest have been obtained along with coronal and sagittal reformatted images. All CT scans at this facility use dose modulation, iterative reconstruction, and/or weight based dosing when appropriate to reduce radiation dose to as low as reasonably achievable. COMPARISON: XY CHEST XRAY 1 VIEW on DOS: 01/05/25 FINDINGS: LOWER NECK: Prominent left thyroid lobe enlargement with minimal superior mediastinal extension LYMPH NODES/MEDIASTINUM: No abnormal lymph nodes by CT size criteria CARDIOVASCULAR: Normal cardiac size. Trace pericardial fluid. No aneurysmal dilatation of the great vessels. Coronary artery calcifications. UPPER ABDOMEN: Trace possible gallbladder sludge versus cholelithiasis. Postsurgical changes to the right bowel loops. Stomach is decompressed. MUSCULOSKELETAL: No acute fracture or aggressive focal osseous lesion. Multilevel degenerative change of the visualized spine. CHEST WALL: Significant asymmetric left upper extremity edema insinuating along the subcutaneous adipose tissues with asymmetric left upper extremity superficial varicosities and asymmetric dilation of the left venous structures. Presumed known left upper extremity fistula. Subsequent asymmetric significant swelling of the left breast. Indeterminate oval-shaped structure in the left lateral breast measuring 19 mm. Correlation with prior mammograms and/or follow up diagnostic mammogram if clinically indicated LUNG PARENCHYMA/PLEURAL SPACE: No pleural effusion or pneumothorax. Atelectasis and/or scarring in the left lung base. IMPRESSION: 1. Significant asymmetric swelling of the left upper extremity and left breast with dilated left axillary and upper extremity venous structures. 2. Partial visualization of arteriovenous fistula incompletely characterized without intravenous contrast. 3. Oval-shaped hyperintense structure located within the left lateral breast of indeterminate etiology. Asymmetric left breast skin thickening and swelling. Diagnostic mammogram and ultrasound may be considered if not already performed.
--- NOTE | 2025-01-05 17:11 | DVHINCON2 ---
Date of service: Jan 05, 2025 Referring Physician Jhonathan Owen Reason for Consultation Dialysis History of Present Illness 79 Y/O F with history of ESRD on HD via left arm AVF, DM type II, HTN, HLD, asthma, colon cancer s/p resection , appendectomy, and hysterectomy presented with chief complaint of SOB. K is 4.0. CXR shows a left basilar opacity. breat US possible cellulitis. she has been started on IV antibiotics. nephrology consulted for dialysis. her last dialysis was at [facility] on Wednesday 01/03, net UF 1.5 L. Past Medical History ESRD DM type II HTN HLD asthma Past Surgical History colon cancer s/p resection appendectomy hysterectomy AVF creation Allergies: Coded Allergies: Aspirin (Verified Allergy, Unknown, 10/07/22) Penicillins (Verified Allergy, Unknown, 10/07/22) Home Meds Active Scripts Cefdinir (Cefdinir) 300 Mg Cap, 300 MG PO BID for 7 Days, #14 CAP Prov:DEBORAH VILLATORO MD 10/09/22 Reported Medications Ferrous Sulfate (Iron (Ferrous Sulfate)) 50 Mg Tab, 65 MG PO, TAB 10/08/22 Folic Acid (Folic Acid) 1 Mg Tab, 1 MG PO DAILY for 30 Days, MG 10/08/22 Cranberry (Cranberry Juice Extract) 1,000 Mg Cap, 1500 MG PO DAILY, CAP 10/08/22 Ascorbic Acid (VITAMIN C TABLET) 500 Mg Tb, 1 TAB PO DAILY, #30 TAB 3 Refills 10/08/22 Oxycodone W/ Acetaminophen (Percocet 5/325MG) 1 Tab Tb, 2 TAB PO TID, #90 TAB 10/08/22 Metoclopramide HCl (Metoclopramide Hydrochlor) 10 Mg Tab, 1 TAB PO BID 10/08/22 Carvedilol (Carvedilol) 25 Mg Tab, 1 TAB PO BID 10/08/22 Lovastatin (Lovastatin) 40 Mg Tab, 1 TAB PO DAILY 10/08/22 Sitagliptin Phosphate (Januvia) 50 Mg Tab, 1 TAB PO DAILY 10/08/22 Current Medications Current Medications Medications (Trade) Dose Ordered Sig/Desiree Route PRN Reason Start Time Stop Time Status Last Admin Carvedilol (Coreg Tablet) 12.5 mg Q12HR PO 01/05/25 10:00 01/05/25 22:03 Heparin Sodium (Porcine) 5,000 units Q12HR SC 01/05/25 10:00 01/05/25 21:48 Pantoprazole Sodium (Protonix Tablet) 40 mg DAILY@0600 PO 01/06/25 06:00 01/06/25 05:45 Ceftriaxone Sodium 50 ml @ 100 mls/hr DAILY@09 IV 01/05/25 10:00 01/05/25 10:00 Doxycycline Hyclate 100 ml @ 50 mls/hr Q12H IV 01/05/25 10:00 01/05/25 21:46 Meropenem 50 ml @ 17 mls/hr DAILY IV 01/06/25 10:00 Future Hold Acetaminophen/ Hydrocodone Bitart (Gulliver 5/325MG Tab) 1 tab Q6HPRN PRN PO SEVERE PAIN (7-10 PAIN SCALE) 01/05/25 20:15 01/06/25 05:45 Hydralazine HCl (Apresoline Injection) 10 mg Q6HP PRN IV SBP>150 01/05/25 23:45 01/06/25 05:46 Family History: Diabetes mellitus G8 MOTHER G8 FATHER FH: cancer FH: mental illness Review of Systems as per HPI, all other systems were reviewed and are negative H&P Exam Vital Signs/I&O Vital Sign Date Time Temp Pulse Resp B/P (MAP) Pulse Ox O2 Delivery O2 Flow Rate FiO2 01/06/25 05:46 164/77 01/06/25 05:00 97.8 74 16 100 97.8 01/06/25 02:59 Nasal Cannula* 2 28 Intake and Output 01/05/25 01/06/25 19:00 07:00 Intake Total 100 ml Balance 100 ml Intake Oral 0 ml IV Total 100 ml Physical Exam Gen: NAD, AAO3 HEENT: NC,AT Cardiac: RRR, no murmur Abd: soft, no tenderness Ext: no edema Neuro: on focal deficits + left arm AVF Labs/Diagnostic Data Labs/Diagnostic Data Laboratory Tests Test 01/05/25 10:59 01/05/25 09:00 01/05/25 06:27 01/05/25 04:27 Range/Units Troponin I High Sensitivity 22 24 22 </=34 ng/L Influenza Type A Antigen Negative Negative Influenza Type B Antigen Negative Negative SARS-CoV-2 Antigen (Rapid) Negative NEGATIVE Prothrombin Time 10.4 9.3-11.8 sec Prothrombin Time INR 0.98 0.9-1.15 Activated Partial Thromboplast Time 27.8 24.5-34.5 SEC White Blood Count 4.5 4.4-10.8 10^3/uL Red Blood Count 3.58 L 4.0-5.20 10^6/uL Hemoglobin 10.9 L 12.2-16.2 g/dL Hematocrit 35.6 L 36.0-46.0 % Mean Corpuscular Volume 99.7 80.0-100.0 fL Mean Corpuscular Hemoglobin 30.4 28.0-32.0 pg Mean Corpuscular Hemoglobin Concent 30.5 L 32.0-36.0 g/dL Red Cell Distribution Width 20.6 H 11.8-14.3 % Platelet Count 129 L 140-450 10^3/uL Mean Platelet Volume 8.4 6.9-10.8 fL Neutrophils (%) (Auto) 55.7 37.0-80.0 % Lymphocytes (%) (Auto) 29.4 10.0-50.0 % Monocytes (%) (Auto) 12.1 H 0.0-12.0 % Eosinophils (%) (Auto) 1.4 0.0-7.0 % Basophils (%) (Auto) 1.4 0.0-2.0 % Neutrophils # (Auto) 2.5 1.6-8.6 10 ^3/uL Lymphocytes # (Auto) 1.3 0.4-5.4 10 ^3/uL Monocytes # (Auto) 0.5 0-1.3 10 ^3/uL Eosinophils # (Auto) 0.1 0-0.8 10 ^3/uL Basophils # (Auto) 0.1 0-0.2 10 ^3/uL Nucleated Red Blood Cells 0.2 % Sodium Level 143 136-145 mmol/L Potassium Level 4.0 3.5-5.1 mmol/L Chloride Level 103 98-107 mmol/L Carbon Dioxide Level 29 20-31 mmol/L Anion Gap 11 5-15 Blood Urea Nitrogen 33 H 9-23 mg/dL Creatinine 6.71 H 0.550-1.02 mg/dL Glomerular Filtration Rate Calc 6 >90 mL/min BUN/Creatinine Ratio 4.9 L 10.0-20.0 Serum Glucose 110 H 74-106 mg/dL Calcium Level 9.2 8.7-10.4 mg/dL Total Bilirubin 0.3 0.2-1.0 mg/dL Direct Bilirubin 0.1 <0.3 mg/dL Aspartate Amino Transferase (AST) 20 13-40 U/L Alanine Aminotransferase (ALT) 14 7-40 U/L Alkaline Phosphatase 77 46-116 U/L B-Type Natriuretic Peptide 589.69 0-100 pg/mL Total Protein 6.4 5.7-8.2 g/dL Albumin 3.6 3.2-4.8 g/dL Assessment ESRD on HD via left arm AVF DM type II pneumonia cellulitis HTN HLD asthma colon cancer s/p resection Hyperphosphatemia Secondary hyperparathyroidism Plan: will schedule patient for HD for tomorrow low K diet antibiotics per primary team AMADO post HD as needed. goal Hb: 10-11 g/dl Plan discussed with: Patient JOSEPH BERGER MD Jan 05, 2025 17:11
--- NOTE | 2025-01-05 17:52 | DVH ---
EXAM: UPPER EXTREMITY WO CONTRAST INDICATION: left rule out abcess in her fistula TECHNIQUE: Axial images of left upper extremity without contrast have been obtained along with coronal and sagittal reformatted images. All CT scans at this facility use dose modulation, iterative reconstruction, and/or weight based dosing when appropriate to reduce radiation dose to as low as reasonably achievable. COMPARISON: None FINDINGS: Limited evaluation without intravenous contrast BONES: No CT evidence of an acute fracture or aggressive osseous lesion. abnormal periosteal reaction along the proximal humeral meta diaphysis and humeral head, which may be seen in the setting of chronic venous stasis. No abnormal osseous erosion, lucency, sclerosis to suggest osteomyelitis. MUSCLES: Significant surrounding edematous appearance of the intrinsic musculature of the left upper extremity. JOINT SPACES: No joint effusion. TENDONS/LIGAMENTS: Limited evaluation OTHER: Vascular calcifications. Extensive surrounding subcutaneous adipose tissue edema and skin thickening of the left upper extremity with left-sided arteriovenous fistula. In regards to the clinical question, no definitive windy fistula hypoattenuating fluid collection to suggest abscess allowing for significant limitation without intravenous contrast. No suspicious soft tissue emphysema. IMPRESSION: 1. No definitive CT evidence of an abscess allowing for significant limitation without intravenous contrast. 2. Extensive surrounding subcutaneous adipose tissue edema and skin thickening of the left upper extremity with left-sided arteriovenous fistula.
[2025-01-05 19:00] VITALS: O2SAT 97
[2025-01-05] MEDS: HYDROcodone-ACET 5/325MG TAB PO PRN (21:48)
[2025-01-06] VITALS (9 sets, daily range): BP systolic 113–165; BP diastolic 52–77; PULSE 70–99; RESP 16–20; TEMP 97.8–98.5; O2SAT 97–100
[2025-01-06] MEDS: PANTOPRAZOLE 40 MG TAB PO SCH (05:45)
[2025-01-06] MEDS: hydrALAZINE HCL 20 MG/ML VL IV PRN (05:46)
[2025-01-06] MEDS ORDERED: SODIUM CHL 0.9% 1000 ML BAG XX ONE (07:00)
--- NOTE | 2025-01-06 07:00 | DVHPN2 ---
Progress Note - Dictate Date Seen: Jan 06, 2025 Medical Necessity Reason Pt with a Central, PICC or Fol: No Subjective No new symptoms vital signs Vital Sign Date Time Temp Pulse Resp B/P (MAP) Pulse Ox O2 Delivery O2 Flow Rate FiO2 01/06/25 05:46 164/77 01/06/25 05:00 97.8 74 16 100 97.8 01/06/25 02:59 Nasal Cannula* 2 28 Total Intake and Output 01/05/25 01/05/25 01/06/25 15:00 23:00 07:00 Intake Total 50 ml 50 ml Balance 50 ml 50 ml medications Current Medications Medications Dose Ordered Sig/Desiree Route Start Time Stop Time Status Last Admin Dose Admin Nitroglycerin 0.4 mg Q5MINP PRN SL 01/05/25 06:15 Morphine Sulfate 2 mg Q30M PRN IV 01/05/25 06:15 Carvedilol 12.5 mg Q12HR PO 01/05/25 10:00 01/05/25 22:03 Heparin Sodium (Porcine) 5,000 units Q12HR SC 01/05/25 10:00 01/05/25 21:48 Pantoprazole Sodium 40 mg DAILY@0600 PO 01/06/25 06:00 01/06/25 05:45 Ceftriaxone Sodium 50 ml @ 100 mls/hr DAILY@09 IV 01/05/25 10:00 01/05/25 10:00 Doxycycline Hyclate 100 ml @ 50 mls/hr Q12H IV 01/05/25 10:00 01/05/25 21:46 Meropenem 50 ml @ 17 mls/hr DAILY IV 01/06/25 10:00 Future Hold Acetaminophen/ Hydrocodone Bitart 1 tab Q6HPRN PRN PO 01/05/25 20:15 01/06/25 05:45 Hydralazine HCl 10 mg Q6HP PRN IV 01/05/25 23:45 01/06/25 05:46 objective Gen: NAD, AAO3 HEENT: NC,AT Cardiac: RRR, no murmur Abd: soft, no tenderness Ext: no edema Neuro: on focal deficits + left arm AVF laboratory and microbiology Laboratory Tests 01/05/25 04:27 Test 01/05/25 04:27 Range/Units Serum Glucose 110 H 74-106 mg/dL Assessment/Plan ESRD on HD via left arm AVF DM type II pneumonia cellulitis HTN HLD asthma colon cancer s/p resection Hyperphosphatemia Secondary hyperparathyroidism Plan: scheduled patient for HD for today low K diet antibiotics per primary team AMADO post HD as needed. goal Hb: 10-11 g/dl Plan discussed with: Patient JOSEPH BERGER MD Jan 06, 2025 07:00
[2025-01-06 07:28] LABS: Hematocrit 32.9 % (36.0-46.0); Hemoglobin 10.4 g/dL (12.2-16.2); Mean Corpuscular Hemoglobin 30.4 pg (28.0-32.0); Mean Corpuscular Volume 96.2 fL (80.0-100.0); Nucleated Red Blood Cells % 0.2 %
[2025-01-06 07:45] LABS: Alanine Aminotransferase 11 U/L (7-40); Albumin 3.2 g/dL (3.2-4.8); Alkaline Phosphatase 67 U/L (46-116); Anion Gap 14 (5-15); BUN/Creatinine Ratio 4.6 (10.0-20.0); Bilirubin, Total 0.5 mg/dL (0.2-1.0); Calcium 9.5 mg/dL (8.7-10.4); Carbon Dioxide 29 mmol/L (20-31); Chloride 100 mmol/L (98-107); Glucose 90 mg/dL (74-106); Potassium 4.1 mmol/L (3.5-5.1); Sodium 143 mmol/L (136-145); Total Protein 5.7 g/dL (5.7-8.2)
[2025-01-06 07:46] LABS: Blood Urea Nitrogen 39 mg/dL (9-23)
[2025-01-06] MEDS ORDERED: MEROPENEM 500MG IVPB 50 ML IV SCH (10:00)
[2025-01-06 11:23] LABS: Hepatitis A Total Antibody Positive (Negative); Hepatitis B Surface Antigen Negative (Negative); Hepatitis C Antibody Negative (Negative)
--- NOTE | 2025-01-06 14:21 | DVHSR ---
APPROVED REPORT EXAM: Two-dimensional and M-mode echocardiogram with Doppler and color Doppler. Blood Pressure: 164/77 mmHg INDICATION Chest Pain RISK FACTORS Height: 5'2, Weight: 191 DIMENSIONS LVDd 3.9 (3.8-5.7cm) LA (2D) 4.3 (1.9-4.0cm) Aortic Root 2.5 (2.0-3.7cm) LVDs 2.8 (2.5-4.0cm) LA (MM) (1.9-4.0cm) Aortic Cusp Exc 1.4 (1.5-2.0cm) EF (%) 55.0 (55-70%) Rt. Atrium 3.5 (1.9-4.0cm) Asc. Aorta cm IVSd 1.0 (0.7-1.1cm) RV (D) (1.8-2.4cm) PWd 1.0 (0.7-1.1cm) Mitral Valve Mitral Mitral Stenosis E/A ratio 0.0 2D MVA cm2 Aortic Valve Aortic Valve Aortic Stenosis LVOT Diameter 1.7 (1.8-2.4cm) Doppler TAMRA cm2 Pulmonic Valve V2 1.06m/s Other Information Technically limited study due to patient inabilty to move, unable to remove top clothing fully in order to access apical window, heavy breathing and patient position. Conclusion Technically good study. Sinus rhythm. LVH. Left atrial enlargement. Thickening of the anterior mitral leaflet of notable degree with slight diminished excursion. Thickening and calcification at the base of the right coronary cusp. The tricuspid and pulmonic or structurally normal. The aortic is normal. Left ventricular function is preserved at 65% with normal RV function. Dopplers unremarkable. No pericardial effusion masses or vegetations.
[2025-01-06] MEDS: ENOXAPARIN SOD 100 MG/1 ML SYRINGE SC SCH (14:54)
[2025-01-06] MEDS: CARVEDILOL 12.5 MG TAB PO ONE (14:55)
--- NOTE | 2025-01-06 15:32 | DVHPNRES ---
Progress Note Date Seen: Jan 06, 2025 Resident Creating Document: MEG HODGE Medical Necessity Reason Pt with a Central, PICC or Fol: No Subjective Review of Systems Patient is a 79-year-old female with past medical history of ESRD on HD via left arm AVF, DM type II, HTN, HLD, asthma, colon cancer, presented to [facility] ED with complaint of shortness of breath for the past 10 days, which worsens with deep breathing, and associated left-sided chest pain. She also reports swelling and pain in the left arm, swelling of the left breast, and left facial swelling. She denies fever, chills, nausea, vomiting, diarrhea, abdominal pain, headache, or neurological symptoms. She uses home oxygen at 2 L via nasal cannula. The patients last dialysis session was on January 03, at [facility], with a net ultrafiltration of 1.5 liters. She reports that three weeks ago, her previous fistula became blocked and was replaced with a new fistula in the left arm. The patient moved to [place], previously she used to live here, this time unfortunately the patient came to attend her daughter's , who on last Thursday. On arrival, potassium was 4.0 mmol/L. Chest X- ray revealed a left basilar opacity, and breast ultrasound suggested possible cellulitis. She has been started on intravenous antibiotics. Nephrology was consulted for dialysis management. The patient has minimal urine output and a GFR of 6 mL/min. On 01/06/25, Patient was seen and examined at bedside. Overnight events were reviewed. During dialysis, at 10:56 am, she developed atrial fibrillation with rapid heart rate (120-130s), but after dialysis, she converted back to normal rhythm. Blood pressure remained elevated (166/75 mmHg), and 2 liters of fluid were removed. Past medical history: [id number] diabetes mellitus, ESRD on dialysis (TTS) via a left arm arteriovenous fistula, hypertension, asthma Past surgical history: Umbilical hernia repair, tonsillectomy, appendectomy, total abdominal hysterectomy, and bilateral foot surgeries Home medications: Januvia, carvedilol 12.5, atorvastatin, folic acid, multivitamin Smoking: Quit 15 years ago. Previously 1 pack per 2 months occasionally. Twenty-five pack years Alcohol: Quit. Last drink several years ago Drugs: Previously marijuana. Does not use drugs Allergies: Penicillin, aspirin, gabapentin, Tea tree well, oranges, shrimp, lidocaine or Novocain or some anesthetics the patient can not recall which was used during her surgery in [place]. Patient seen and examined at bedside. Patient is alert and oriented to time, place person and responding to all questions. Eyes: No Pain, No Vision change, No Conjunctivae inflammation, No Eyelid inflammation, No Other, No Redness ENT: No Ear pain, No Ear discharge, No Nose pain, No Nose discharge, No Nose congestion, No Mouth pain, No Mouth swelling, No Throat pain, No Throat swelling, No Other Cardiovascular: Chest Pain, No Palpitations, No Orthopnea, No Paroxysmal No Dyspnea, Edema, No Lt Headedness, No Other Respiratory: No Cough, No Dry, No Shortness of breath, No SOB with exertion, No Wheezing, No Hemoptysis, No Pleuritic Pain, No Sputum, No Other Gastrointestinal: No Nausea, No Vomiting, No Abdominal Pain, No Diarrhea, No Constipation, No Melena, No Hematochezia, No Other Genitourinary: No Dysuria, No Frequency, No Incontinence, No Hematuria, No Retention, No Other Musculoskeletal: No other, No neck pain, No shoulder pain, arm pain, No back pain, No hand pain, No leg pain, No foot pain Skin: No Rash, No Lesions, No Jaundice, No Bruising, No Other Objective vital signs Vital Sign Date Time Temp Pulse Resp B/P (MAP) Pulse Ox O2 Delivery O2 Flow Rate FiO2 01/06/25 14:55 87 114/58 01/06/25 13:00 97.8 20 99 97.8 01/06/25 02:59 Nasal Cannula* 2 28 Total Intake and Output 01/05/25 01/05/25 01/06/25 15:00 23:00 07:00 Intake Total 50 ml 50 ml Balance 50 ml 50 ml medications Current Medications Medications Dose Ordered Sig/Desiree Route Start Time Stop Time Status Last Admin Dose Admin Nitroglycerin 0.4 mg Q5MINP PRN SL 01/05/25 06:15 Morphine Sulfate 2 mg Q30M PRN IV 01/05/25 06:15 Pantoprazole Sodium 40 mg DAILY@0600 PO 01/06/25 06:00 01/06/25 05:45 40 MG Ceftriaxone Sodium 50 ml @ 100 mls/hr DAILY@09 IV 01/05/25 10:00 01/05/25 10:00 100 MLS/HR Doxycycline Hyclate 100 ml @ 50 mls/hr Q12H IV 01/05/25 10:00 01/05/25 21:46 50 MLS/HR Meropenem 50 ml @ 17 mls/hr DAILY IV 01/06/25 10:00 Hold Acetaminophen/ Hydrocodone Bitart 1 tab Q6HPRN PRN PO 01/05/25 20:15 01/06/25 05:45 1 TAB Hydralazine HCl 10 mg Q6HP PRN IV 01/05/25 23:45 01/06/25 05:46 10 MG Carvedilol 25 mg Q12HR PO 01/06/25 22:00 Enoxaparin Sodium 90 mg DAILY SC 01/06/25 13:15 01/06/25 14:54 90 MG Examination General Appearance: Cooperative. Well developed. Well nourished. NAD Head Exam: Normal inspection Neck Exam: Normal inspection. Non-tender. Normal alignment Pulmonary/Respiratory: Chest non-tender. Clear bilateral breath sounds, no crackles, no wheezing. Cardiovascular/Chest: Regular rate and rhythm. No murmurs. No JVD. Peripheral Pulses: 2+ Radial (R). 2+ Radial (L). 2+ Pedal (R). 2+ Pedal (L) Abdominal Exam: Normal bowel sounds. Soft. normal abdomen, no visible veins, Nontender. No hepatospenomegaly. No masses Ankle Exam: Negative ankle edema Breast exam: Left breast significant swelling erythema Upper Extremities: Left arm swelling and tenderness around AV fistula site. Erythema. No drainage noted. Lower Extremities: bilateral 1+ pitting edema noted Neuro/Mental Status: A&O x4. Coherent. Thoughts/Psych: Normal thought pattern. Appropriate mood and affect. Good judgement and insight Skin Exam: Normal inspection. Normal color. Warm. Dry laboratory and microbiology Laboratory Tests 01/06/25 06:54 Test 01/06/25 06:54 Range/Units Serum Glucose 90 74-106 mg/dL Labs and/or images reviewed: Labs reviewed by me, Image(s) reviewed by me Problem List/Assessment/Plan Problem List/Assessment/Plan Left breast and upper extremity cellulitis Left-sided AV fistula arteriovenous fistula Possible left breast abscess Rule out DVT Upper Extremity CT: Extensive surrounding subcutaneous adipose tissue edema and skin thickening of the left upper extremity with left-sided arteriovenous fistula. Chest CT: Significant asymmetric swelling of the left upper extremity and left breast with dilated left axillary and upper extremity venous structures. Partial visualization of arteriovenous fistula incompletely characterized without intravenous contrast. Oval-shaped hyperintense structure located within the left lateral breast of indeterminate etiology. Asymmetric left breast skin thickening and swelling. Extremity Venous Study: No venous thrombus identified in the LEFT upper extremity vessels evaluated above. AV fistula is patent. Breast US: Subcutaneous edema in the area of clinical concern in the left breast, may be due to cellulitis in the appropriate clinical setting. Well- circumscribed, smoothly marginated anechoic mass in the left breast 1 o'clock position approximately 3 cm from the nipple, most likely a mildly complex cyst. Abscess would be less likely but not completely excluded in the setting of overlying soft tissue infection. No solid mass identified to suggest malignancy, although evaluation for malignancy is incomplete without mammogram. Echocardiogram: Left ventricular function is preserved at 65% with normal RV function. Sinus rhythm. LVH. Left atrial enlargement. Vascular consult pending Carvedilol 12.5 mg p.o. q.12 Ceftriaxone Doxycycline Heparin 5000 units SC q12h pain management with morphine sodium chloride 0.9% ESRD on hemodialysis Nephrology consulted Hemodialysis on today (01/06/25): 2 liters of fluid removed. Last BP: 166/75 mmHg. Heart rate: 92 Paroxysmal atrial fibrillation Carvedilol 25 mg q12h Enoxaparin 90 MG SC daily Left basilar atelectasis or pneumonia Cardiomegaly Chest X-ray: Left basilar opacity which may reflect atelectasis or pneumonia. Cardiomegaly. Type 2 diabetes mellitus - controlled (A1c 4.4) serum glucose 90 monitor Essential hypertension monitor BP Hydralazine 10 mg q6h Diet: Renal Goals of care: Full code, discussed for >30 minutes on 01/06/25 Plan discussed with patient Plan discussed with Dr. Lucero Plan discussed with: Patient My Orders My Orders Orders - MEG HODGE RESIDENT Procedure Category Date Status Time * Joint Cleaning Machine Operator CONS 01/06/25 Transmitted Consult 04:19 Mrsa Screen OUMOU 01/06/25 In Process 04:19 Date of Service: Jan 06, 2025 Billing Provider: AG LUCERO MD Common Visit Codes: [id number] INP/OBS CARE(HIGH) MEG HODGE RESIDENT Jan 06, 2025 15:32 ARIELLA BAKER RESIDENT Jan 07, 2025 13:15 AG LUCERO MD Jan 17, 2025 20:54
[2025-01-06] MEDS: CARVEDILOL 12.5 MG TAB PO SCH (22:35)
[2025-01-07] VITALS (8 sets, daily range): BP systolic 112–134; BP diastolic 36–61; PULSE 60–94; RESP 18–20; TEMP 97.6–99.2; O2SAT 99–100
[2025-01-07 07:11] LABS: Hematocrit 30.5 % (36.0-46.0); Hemoglobin 9.6 g/dL (12.2-16.2); Mean Corpuscular Hemoglobin 30.7 pg (28.0-32.0); Mean Corpuscular Volume 97.7 fL (80.0-100.0); Nucleated Red Blood Cells % 0.0 %
[2025-01-07 07:37] LABS: Alkaline Phosphatase 61 U/L (46-116); Anion Gap 10 (5-15); BUN/Creatinine Ratio 3.8 (10.0-20.0); Calcium 8.9 mg/dL (8.7-10.4); Chloride 100 mmol/L (98-107); Glucose 86 mg/dL (74-106); Potassium 4.2 mmol/L (3.5-5.1); Sodium 141 mmol/L (136-145)
[2025-01-07 07:38] LABS: Bilirubin, Total 0.5 mg/dL (0.2-1.0)
[2025-01-07 07:45] LABS: Alanine Aminotransferase < 9 U/L (7-40); Albumin 3.0 g/dL (3.2-4.8); Blood Urea Nitrogen 24 mg/dL (9-23); Carbon Dioxide 31 mmol/L (20-31); Total Protein 5.4 g/dL (5.7-8.2)
--- NOTE | 2025-01-07 11:23 | DVHPN2 ---
Progress Note Date Seen: Jan 07, 2025 Medical Necessity Reason Pt with a Central, PICC or Fol: No Subjective Review of Systems Patient is a 79-year-old female with past medical history of ESRD on HD via left arm AVF, DM type II, HTN, HLD, asthma, colon cancer, presented to [facility] ED with complaint of shortness of breath for the past 10 days, which worsens with deep breathing, and associated left-sided chest pain. She also reports swelling and pain in the left arm, swelling of the left breast, and left facial swelling. She denies fever, chills, nausea, vomiting, diarrhea, abdominal pain, headache, or neurological symptoms. She uses home oxygen at 2 L via nasal cannula. The patients last dialysis session was on January 03, at [facility], with a net ultrafiltration of 1.5 liters. She reports that three weeks ago, her previous fistula became blocked and was replaced with a new fistula in the left arm. The patient moved to [place], previously she used to live here, this time unfortunately the patient came to attend her daughter's , who on last Thursday. On arrival, potassium was 4.0 mmol/L. Chest X- ray revealed a left basilar opacity, and breast ultrasound suggested possible cellulitis. She has been started on intravenous antibiotics. Nephrology was consulted for dialysis management. The patient has minimal urine output and a GFR of 6 mL/min. On 01/06/25, Patient was seen and examined at bedside. Overnight events were reviewed. During dialysis, at 10:56 am, she developed atrial fibrillation with rapid heart rate (120-130s), but after dialysis, she converted back to normal rhythm. Blood pressure remained elevated (166/75 mmHg), and 2 liters of fluid were removed. On 01/07/25, Patient was seen and examined at bedside. Overnight events were reviewed. She was placed on 3 liters of oxygen via nasal cannula which improved her breathing. Vascular consult was requested, and Dr. Lopez stated he will see the patient on Thursday, with instructions to make her NPO after midnight on Thursday, elevate the left arm, and wrap it with an SWETHA bandage from hand to elbow. Past medical history: Bck-gvwdbnz-snyegagpt diabetes mellitus, ESRD on dialysis (TTS) via a left arm arteriovenous fistula, hypertension, asthma Past surgical history: Umbilical hernia repair, tonsillectomy, appendectomy, total abdominal hysterectomy, and bilateral foot surgeries Home medications: Januvia, carvedilol 12.5, atorvastatin, folic acid, multivitamin Smoking: Quit 15 years ago. Previously 1 pack per 2 months occasionally. Twenty-five pack years Alcohol: Quit. Last drink several years ago Drugs: Previously marijuana. Does not use drugs Allergies: Penicillin, aspirin, gabapentin, Tea tree well, oranges, shrimp, lidocaine or Novocain or some anesthetics the patient can not recall which was used during her surgery in [place]. Patient seen and examined at bedside. Patient is alert and oriented to time, place person and responding to all questions. Eyes: No Pain, No Vision change, No Conjunctivae inflammation, No Eyelid inflammation, No Other, No Redness ENT: No Ear pain, No Ear discharge, No Nose pain, No Nose discharge, No Nose congestion, No Mouth pain, No Mouth swelling, No Throat pain, No Throat swelling, No Other Cardiovascular: Chest Pain, No Palpitations, No Orthopnea, No Paroxysmal No Dyspnea, Edema, No Lt Headedness, No Other Respiratory: No Cough, No Dry, No Shortness of breath, No SOB with exertion, No Wheezing, No Hemoptysis, No Pleuritic Pain, No Sputum, No Other Gastrointestinal: No Nausea, No Vomiting, No Abdominal Pain, No Diarrhea, No Constipation, No Melena, No Hematochezia, No Other Genitourinary: No Dysuria, No Frequency, No Incontinence, No Hematuria, No Retention, No Other Musculoskeletal: No other, No neck pain, No shoulder pain, arm pain, No back pain, No hand pain, No leg pain, No foot pain Skin: No Rash, No Lesions, No Jaundice, No Bruising, No Other Objective vital signs Vital Sign Date Time Temp Pulse Resp B/P (MAP) Pulse Ox O2 Delivery O2 Flow Rate FiO2 01/07/25 11:03 82 116/36 01/07/25 08:58 99.2 18 99 99.2 01/06/25 20:00 Nasal Cannula* 2 28 Total Intake and Output 01/06/25 01/06/25 01/07/25 15:00 23:00 07:00 Intake Total 240 ml 500 ml Balance 240 ml 500 ml medications Current Medications Medications Dose Ordered Sig/Desiree Route Start Time Stop Time Status Last Admin Dose Admin Nitroglycerin 0.4 mg Q5MINP PRN SL 01/05/25 06:15 Morphine Sulfate 2 mg Q30M PRN IV 01/05/25 06:15 Pantoprazole Sodium 40 mg DAILY@0600 PO 01/06/25 06:00 01/07/25 05:39 40 MG Ceftriaxone Sodium 50 ml @ 100 mls/hr DAILY@09 IV 01/05/25 10:00 01/07/25 08:32 100 MLS/HR Doxycycline Hyclate 100 ml @ 50 mls/hr Q12H IV 01/05/25 10:00 01/06/25 22:12 50 MLS/HR Meropenem 50 ml @ 17 mls/hr DAILY IV 01/06/25 10:00 Hold Acetaminophen/ Hydrocodone Bitart 1 tab Q6HPRN PRN PO 01/05/25 20:15 01/06/25 20:21 1 TAB Hydralazine HCl 10 mg Q6HP PRN IV 01/05/25 23:45 01/06/25 05:46 10 MG Carvedilol 25 mg Q12HR PO 01/06/25 22:00 01/07/25 11:03 25 MG Enoxaparin Sodium 90 mg DAILY SC 01/06/25 13:15 01/07/25 11:15 90 MG Examination General Appearance: Cooperative. Well developed. Well nourished. NAD Head Exam: Normal inspection Neck Exam: Normal inspection. Non-tender. Normal alignment Pulmonary/Respiratory: Chest non-tender. Clear bilateral breath sounds, no crackles, no wheezing. Cardiovascular/Chest: Regular rate and rhythm. No murmurs. No JVD. Peripheral Pulses: 2+ Radial (R). 2+ Radial (L). 2+ Pedal (R). 2+ Pedal (L) Abdominal Exam: Normal bowel sounds. Soft. normal abdomen, no visible veins, Nontender. No hepatospenomegaly. No masses Ankle Exam: Negative ankle edema Breast exam: Left breast significant swelling erythema Upper Extremities: Left arm swelling and tenderness around AV fistula site. Erythema. No drainage noted. Lower Extremities: bilateral 1+ pitting edema noted Neuro/Mental Status: A&O x4. Coherent. Thoughts/Psych: Normal thought pattern. Appropriate mood and affect. Good judgement and insight Skin Exam: Normal inspection. Normal color. Warm. Dry laboratory and microbiology Laboratory Tests 01/07/25 06:15 Test 01/07/25 06:15 Range/Units Serum Glucose 86 74-106 mg/dL Microbiology Date/Time Source Procedure Growth Status 01/06/25 04:40 Nose MRSA Screen - Final Complete Labs and/or images reviewed: Labs reviewed by me, Image(s) reviewed by me Problem List/Assessment/Plan Problem List/Assessment/Plan Left breast and upper extremity cellulitis Left-sided AV fistula arteriovenous fistula Possible left breast abscess Rule out DVT Upper Extremity CT: Extensive surrounding subcutaneous adipose tissue edema and skin thickening of the left upper extremity with left-sided arteriovenous fistula. Chest CT: Significant asymmetric swelling of the left upper extremity and left breast with dilated left axillary and upper extremity venous structures. Partial visualization of arteriovenous fistula incompletely characterized without intravenous contrast. Oval-shaped hyperintense structure located within the left lateral breast of indeterminate etiology. Asymmetric left breast skin thickening and swelling. Extremity Venous Study: No venous thrombus identified in the LEFT upper extremity vessels evaluated above. AV fistula is patent. Breast US: Subcutaneous edema in the area of clinical concern in the left breast, may be due to cellulitis in the appropriate clinical setting. Well- circumscribed, smoothly marginated anechoic mass in the left breast 1 o'clock position approximately 3 cm from the nipple, most likely a mildly complex cyst. Abscess would be less likely but not completely excluded in the setting of overlying soft tissue infection. No solid mass identified to suggest malignancy, although evaluation for malignancy is incomplete without mammogram. Echocardiogram: Left ventricular function is preserved at 65% with normal RV function. Sinus rhythm. LVH. Left atrial enlargement. Vascular consult: Dr. Lopez stated he will see the patient on Thursday (01/09/25), with instructions to make her NPO after midnight on Thursday, elevate the left arm, and wrap it with an SWETHA bandage from hand to elbow. Surgery consult Meropenem 500 mg IV daily Carvedilol 12.5 mg p.o. q.12 Ceftriaxone Doxycycline Heparin 5000 units SC q12h pain management with morphine sodium chloride 0.9% ESRD on hemodialysis Nephrology consulted Hemodialysis on today (01/06/25): 2 liters of fluid removed. Last BP: 166/75 mmHg. Heart rate: 92 Paroxysmal atrial fibrillation Carvedilol 12.5 mg po once Carvedilol 25 mg q12h Enoxaparin 90 MG SC daily Left basilar atelectasis or pneumonia Cardiomegaly Chest X-ray: Left basilar opacity which may reflect atelectasis or pneumonia. Cardiomegaly. Type 2 diabetes mellitus - controlled (A1c 4.4) serum glucose 90 monitor Essential hypertension monitor BP Hydralazine 10 mg q6h Diet: Renal Goals of care: Full code, discussed for >30 minutes on 01/07/25 Plan discussed with patient Plan discussed with Dr. Brennan Plan discussed with: Patient, Other (RN) Date of Service: Jan 07, 2025 Billing Provider: AG BRENNAN MD Common Visit Codes: [id number] INP/OBS CARE(HIGH) MEG HODGE RESIDENT Jan 07, 2025 11:23
[2025-01-07] MEDS ORDERED: VANCOMYCIN PER PHARMACY 0 MG IV SCH (11:45)
[2025-01-07] MEDS: VANCOMYCIN 1.25GM/250ML 250 ML IV ONE ×2 (12:00→15:30)
[2025-01-07] MEDS: MEROPENEM 500MG IVPB 50 ML IV SCH (13:49)
--- NOTE | 2025-01-07 14:28 | DVHINCON2 ---
Consultation - Surgical Date Seen: Jan 07, 2025 Referring Physician Reason for Consultation Left breast abscess History of Present Illness History of Present Illness Mrs. Lane is a 79-year-old female who presented to the hospital due to 2 weeks of left upper extremity swelling, associated with some numbness of the extremity. Patient states that she usually has some swelling of the extremity but not this bad. Last time the extremity got this bad was approximately 6 months ago and it was due to a thrombus in the AV fistula of her upper arm, for which she underwent thrombectomy, and the swelling resolved. Patient has had the fistula since 2017. Her last hemodialysis was yesterday and patient states there was no issue. I was consulted due to lesion seen on left breast ultrasound, that was described as a possible complex cyst measuring 1.9 cm in diameter. As far as her breast patient states that the left side has been getting progressively swollen and bigger, and correlates with the swelling of the left upper extremity. Denies nipple retraction, skin dimpling, nipple discharge, previous cancer diagnosis of the breast, previous radiation to the breast/chest area. Her last mammogram was 2 years ago and was negative. Denies fevers, chills, weight loss, loss of appetite. She has extensive family history for breast cancer. Past Medical/Surgical History Past Medical/Surgical History Past medical history hypertension, diabetes, asthma, end-stage renal disease on hemodialysis, hyperlipidemia, av fistula thrombus, colon cancer Past surgical history left upper extremity AV fistula, appendectomy, ventral incisional hernia x2, colon resection for colon cancer Family and Social History Family and Social History Family history remarkable for breast cancer a proximally 7 family members ETOH/T Ob/drugs denies Allergies and medications Allergies: Coded Allergies: Aspirin (Verified Allergy, Unknown, 10/07/22) Penicillins (Verified Allergy, Unknown, 10/07/22) Home Meds Active Scripts Cefdinir (Cefdinir) 300 Mg Cap, 300 MG PO BID for 7 Days, #14 CAP Prov:DEBORAH VILLATORO MD 10/09/22 Reported Medications Ferrous Sulfate (Iron (Ferrous Sulfate)) 50 Mg Tab, 65 MG PO, TAB 10/08/22 Folic Acid (Folic Acid) 1 Mg Tab, 1 MG PO DAILY for 30 Days, MG 10/08/22 Cranberry (Cranberry Juice Extract) 1,000 Mg Cap, 1500 MG PO DAILY, CAP 10/08/22 Ascorbic Acid (VITAMIN C TABLET) 500 Mg Tb, 1 TAB PO DAILY, #30 TAB 3 Refills 10/08/22 Oxycodone W/ Acetaminophen (Percocet 5/325MG) 1 Tab Tb, 2 TAB PO TID, #90 TAB 10/08/22 Metoclopramide HCl (Metoclopramide Hydrochlor) 10 Mg Tab, 1 TAB PO BID 10/08/22 Carvedilol (Carvedilol) 25 Mg Tab, 1 TAB PO BID 10/08/22 Lovastatin (Lovastatin) 40 Mg Tab, 1 TAB PO DAILY 10/08/22 Sitagliptin Phosphate (Januvia) 50 Mg Tab, 1 TAB PO DAILY 10/08/22 Review of systems Review of Systems: Deferred Examination Vital signs Vital Signs Date Time Temp Pulse Resp B/P (MAP) Pulse Ox O2 Delivery O2 Flow Rate FiO2 01/07/25 12:55 98.4 60 18 113/47 (69) 100 98.4 01/06/25 20:00 Nasal Cannula* 2 28 Medications Current Medications Medications (Trade) Dose Ordered Sig/Desiree Route PRN Reason Start Time Stop Time Status Last Admin Carvedilol (Coreg Tablet) 25 mg Q12HR PO 01/06/25 22:00 01/07/25 11:03 Vancomycin HCl 0 ml @ 0 mls/hr PER PHARMACY IV 01/07/25 11:45 Meropenem 50 ml @ 17 mls/hr HS IV 01/07/25 11:45 01/07/25 13:49 Laboratory Labs Test 01/07/25 06:15 01/06/25 06:54 01/05/25 10:59 01/05/25 09:00 Range/Units White Blood Count 3.5 L 4.4-10.8 10^3/uL Red Blood Count 3.13 L 4.0-5.20 10^6/uL Hemoglobin 9.6 L 12.2-16.2 g/dL Hematocrit 30.5 L 36.0-46.0 % Mean Corpuscular Volume 97.7 80.0-100.0 fL Mean Corpuscular Hemoglobin 30.7 28.0-32.0 pg Mean Corpuscular Hemoglobin Concent 31.5 L 32.0-36.0 g/dL Red Cell Distribution Width 19.5 H 11.8-14.3 % Platelet Count 109 L 140-450 10^3/uL Mean Platelet Volume 9.8 6.9-10.8 fL Neutrophils (%) (Auto) 55.3 37.0-80.0 % Lymphocytes (%) (Auto) 28.0 10.0-50.0 % Monocytes (%) (Auto) 13.6 H 0.0-12.0 % Eosinophils (%) (Auto) 2.2 0.0-7.0 % Basophils (%) (Auto) 0.9 0.0-2.0 % Neutrophils # (Auto) 2.0 1.6-8.6 10 ^3/uL Lymphocytes # (Auto) 1.0 0.4-5.4 10 ^3/uL Monocytes # (Auto) 0.5 0-1.3 10 ^3/uL Eosinophils # (Auto) 0.1 0-0.8 10 ^3/uL Basophils # (Auto) 0 0-0.2 10 ^3/uL Nucleated Red Blood Cells 0.0 % Sodium Level 141 136-145 mmol/L Potassium Level 4.2 3.5-5.1 mmol/L Chloride Level 100 98-107 mmol/L Carbon Dioxide Level 31 20-31 mmol/L Anion Gap 10 5-15 Blood Urea Nitrogen 24 #H 9-23 mg/dL Creatinine 6.24 H 0.550-1.02 mg/dL Glomerular Filtration Rate Calc 6 >90 mL/min BUN/Creatinine Ratio 3.8 L 10.0-20.0 Serum Glucose 86 74-106 mg/dL Calcium Level 8.9 8.7-10.4 mg/dL Total Bilirubin 0.5 0.2-1.0 mg/dL Aspartate Amino Transferase (AST) 13 13-40 U/L Alanine Aminotransferase (ALT) < 9 7-40 U/L Alkaline Phosphatase 61 46-116 U/L Total Protein 5.4 L 5.7-8.2 g/dL Albumin 3.0 L 3.2-4.8 g/dL Hemoglobin A1c 4.4 <5.7 % A1C Troponin I High Sensitivity 22 </=34 ng/L Influenza Type A Antigen Negative Negative Influenza Type B Antigen Negative Negative SARS-CoV-2 Antigen (Rapid) Negative NEGATIVE Test 01/05/25 06:27 01/05/25 04:27 Range/Units Prothrombin Time 10.4 9.3-11.8 sec Prothrombin Time INR 0.98 0.9-1.15 Activated Partial Thromboplast Time 27.8 24.5-34.5 SEC Hepatitis A Antibody Total Positive H Negative Hepatitis B Surface Antigen Negative Negative Hepatitis B Surface Antibody Positive H Negative Hepatitis B Core Total Antibody Positive H Negative Hepatitis C Antibody Negative Negative Direct Bilirubin 0.1 <0.3 mg/dL B-Type Natriuretic Peptide 589.69 0-100 pg/mL Microbiology Date/Time Source Procedure Growth Status 01/06/25 04:40 Nose MRSA Screen - Final Complete Examination: GENERAL:Normal (Alert awake and oriented x3), HEENT:Abnormal (Bilateral anterior neck adenopathy), LUNGS:Normal (Nonlabored breathing with symmetric expansion), ABDOMEN:Normal (Large pannus, soft and depressible, nontender), Any Other System: (Left breast edema/enlargement, no dimpling, no nipple retraction, no nipple drainage, mass palpated at the breast axillary tail between breast tissue and pectoralis major muscle approximately 2-3 cm in diameter, round, mobile, no erythema, no breast fluctuance. Right breast unremarkable: No nipple retraction no skin dimpling no nipple drainage no masses. Bilateral axilla without any adenopathy) Problem List/Assessment/Plan Problems: (1) Breast mass in female (2) Left upper extremity swelling Assessment and Plan Mrs. Lane is a 79-year-old female who was consulted due to left-sided breast abscess, no abscess was seen on imaging, but a mass was seen on ultrasound, that was concerning for a complex cyst. I reviewed the ultrasound and is hard to tell if it is a cystic mass versus some other type of mass, and it was read as a BI-RADS 0. I also reviewed the CT scan of the chest, where I see a mass inferior or around the nipple-areolar complex on the outer lower quadrant and another mass, which appears to be an enlarged lymph node in the axillary tail of the breast. On physical exam there is no abscess or fluid collection identified, and the breasts is very swollen and enlarged as compared to the right breast, also left upper extremity is very swollen. Breast edema can be a result of the left upper extremity edema, but the patient still has those 2 masses and they should be further worked up with a mammogram. As far as the left upper extremity edema, patient has had this issue before and she was found to have a thrombus on her AV fistula, so I recommend further workup for this reason. 1. Patient needs a diagnostic mammogram 2. Patient needs a CTA of the left upper extremity, to further assess as culture, and depending on this result she might need a fistulogram. 3. I will sign off at this time, please call for any questions or concerns. Plan discussed with Plan discussed with: Patient, Daughter Visit Coding Surgery Date of Service if different f: Jan 07, 2025 Billing Provider: NURA MOORE MD Surgery Visit Codes: 18876 - INP CONSULT <110 MIN NURA MOORE MD Jan 07, 2025 14:27
--- NOTE | 2025-01-07 15:17 | DVHPN2 ---
Progress Note - Dictate Date Seen: Jan 07, 2025 Medical Necessity Reason Pt with a Central, PICC or Fol: No Subjective No new symptoms vital signs Vital Sign Date Time Temp Pulse Resp B/P (MAP) Pulse Ox O2 Delivery O2 Flow Rate FiO2 01/07/25 12:55 98.4 60 18 113/47 (69) 100 98.4 01/07/25 08:00 Nasal Cannula* 2 28 Total Intake and Output 01/06/25 01/06/25 01/07/25 15:00 23:00 07:00 Intake Total 240 ml 500 ml Balance 240 ml 500 ml medications Current Medications Medications Dose Ordered Sig/Desiree Route Start Time Stop Time Status Last Admin Dose Admin Morphine Sulfate 2 mg Q30M PRN IV 01/05/25 06:15 Pantoprazole Sodium 40 mg DAILY@0600 PO 01/06/25 06:00 01/07/25 05:39 40 MG Acetaminophen/ Hydrocodone Bitart 1 tab Q6HPRN PRN PO 01/05/25 20:15 01/06/25 20:21 1 TAB Hydralazine HCl 10 mg Q6HP PRN IV 01/05/25 23:45 01/06/25 05:46 10 MG Carvedilol 25 mg Q12HR PO 01/06/25 22:00 01/07/25 11:03 25 MG Enoxaparin Sodium 90 mg DAILY SC 01/06/25 13:15 01/07/25 11:15 90 MG Vancomycin HCl 0 ml @ 0 mls/hr PER PHARMACY IV 01/07/25 11:45 Meropenem 50 ml @ 17 mls/hr HS IV 01/07/25 11:45 01/07/25 13:49 17 MLS/HR objective Gen: NAD, AAO3 HEENT: NC,AT Cardiac: RRR, no murmur Abd: soft, no tenderness Ext: no edema Neuro: on focal deficits + left arm AVF laboratory and microbiology Laboratory Tests 01/07/25 06:15 Test 01/07/25 06:15 Range/Units Serum Glucose 86 74-106 mg/dL Assessment/Plan ESRD on HD via left arm AVF DM type II pneumonia cellulitis HTN HLD asthma colon cancer s/p resection Hyperphosphatemia Secondary hyperparathyroidism Plan: s/p HD Thursday Next HD tomorrow (Thursday) low K diet antibiotics per primary team AMADO post HD as needed. goal Hb: 10-11 g/dl Plan discussed with: Patient JOSEPH BERGER MD Jan 07, 2025 15:16
[2025-01-08] VITALS (14 sets, daily range): BP systolic 124–159; BP diastolic 35–68; PULSE 50–125; RESP 17–20; TEMP 97.8–98.5; O2SAT 98–100
[2025-01-08] MEDS ORDERED: SODIUM CHL 0.9% 1000 ML BAG XX ONE (07:00)
[2025-01-08 07:24] LABS: Hematocrit 31.4 % (36.0-46.0); Hemoglobin 9.8 g/dL (12.2-16.2); Mean Corpuscular Hemoglobin 30.5 pg (28.0-32.0); Mean Corpuscular Volume 97.9 fL (80.0-100.0); Nucleated Red Blood Cells % 0.2 %
[2025-01-08 07:54] LABS: Albumin 3.2 g/dL (3.2-4.8); Alkaline Phosphatase 63 U/L (46-116); Anion Gap 11 (5-15); BUN/Creatinine Ratio 4.1 (10.0-20.0); Bilirubin, Total 0.4 mg/dL (0.2-1.0); Calcium 9.3 mg/dL (8.7-10.4); Carbon Dioxide 30 mmol/L (20-31); Chloride 99 mmol/L (98-107); Glucose 79 mg/dL (74-106); Potassium 4.7 mmol/L (3.5-5.1); Sodium 140 mmol/L (136-145); Total Protein 5.7 g/dL (5.7-8.2)
[2025-01-08 07:57] LABS: Alanine Aminotransferase 9 U/L (7-40); Blood Urea Nitrogen 32 mg/dL (9-23)
[2025-01-08] MEDS: ALBUTEROL SULF 2.5 MG/0.5ML(0.5%) NEB SOLN NEB PRN (10:45)
[2025-01-08] MEDS: ALBUTEROL SULF 2.5 MG/0.5ML(0.5%) NEB SOLN ONE ×2 (10:50→14:07)
[2025-01-08] MEDS: ACETAMINOPHEN 325 MG TAB PO ONE (10:50)
--- NOTE | 2025-01-08 11:39 | DVHPN2 ---
Progress Note Date Seen: Jan 08, 2025 Medical Necessity Reason Pt with a Central, PICC or Fol: No Subjective Review of Systems Patient was seen today at bedside Labs and chart reviewed Patient due for hemodialysis today Pending consult by Dr. Quesada tomorrow Objective vital signs Vital Sign Date Time Temp Pulse Resp B/P (MAP) Pulse Ox O2 Delivery O2 Flow Rate FiO2 01/08/25 10:45 55 20 100 01/08/25 10:35 Nasal Cannula 3.0 01/08/25 10:35 32 01/08/25 10:00 146/43 01/08/25 09:00 98.3 98.3 Total Intake and Output 01/07/25 01/07/25 01/08/25 15:00 23:00 07:00 Intake Total 50 ml 260 ml 450 ml Balance 50 ml 260 ml 450 ml medications Current Medications Medications Dose Ordered Sig/Desiree Route Start Time Stop Time Status Last Admin Dose Admin Morphine Sulfate 2 mg Q30M PRN IV 01/05/25 06:15 Pantoprazole Sodium 40 mg DAILY@0600 PO 01/06/25 06:00 01/08/25 06:05 40 MG Acetaminophen/ Hydrocodone Bitart 1 tab Q6HPRN PRN PO 01/05/25 20:15 01/06/25 20:21 1 TAB Hydralazine HCl 10 mg Q6HP PRN IV 01/05/25 23:45 01/06/25 05:46 10 MG Carvedilol 25 mg Q12HR PO 01/06/25 22:00 01/07/25 11:03 25 MG Enoxaparin Sodium 90 mg DAILY SC 01/06/25 13:15 01/07/25 11:15 90 MG Vancomycin HCl 0 ml @ 0 mls/hr PER PHARMACY IV 01/07/25 11:45 Meropenem 50 ml @ 17 mls/hr HS IV 01/07/25 11:45 01/07/25 13:49 17 MLS/HR Albuterol 1.25 mg Q4HPRN PRN NEB 01/08/25 01:15 01/08/25 10:45 1.25 MG Acetaminophen 650 mg Q6HP PRN PO 01/08/25 11:30 Examination General examination- awake, alert, oriented HEENT- PEERLA, no acute nasal discharge Cardiovascular- S1-S2 audible, rate and rhythm regular, no murmur Respiratory- CTAB, no wheeze or rhonchi Gastrointestinal-nontender, bowel sound+. Nondistended Musculoskeletal-no acute joint swelling or tenderness or redness extremity- left upper extremity swollen, edematous Neurological- cranial nerves intact, no acute dysarthria or dysphagia Psychiatry- denies depression or SI or HI laboratory and microbiology Laboratory Tests 01/08/25 06:00 Test 01/08/25 06:00 Range/Units Serum Glucose 79 74-106 mg/dL Microbiology Date/Time Source Procedure Growth Status 01/07/25 10:49 Blood Blood Culture - Preliminary NO GROWTH AFTER 24 HOURS OF INCUBATION. Resulted 01/06/25 04:40 Nose MRSA Screen - Final Complete Problem List/Assessment/Plan Problem List/Assessment/Plan Problem List/Assessment/Plan- Left breast and upper extremity cellulitis Left-sided AV fistula arteriovenous fistula Possible left breast abscess Rule out DVT Upper Extremity CT: Extensive surrounding subcutaneous adipose tissue edema and skin thickening of the left upper extremity with left-sided arteriovenous fistula. Chest CT: Significant asymmetric swelling of the left upper extremity and left breast with dilated left axillary and upper extremity venous structures. Partial visualization of arteriovenous fistula incompletely characterized without intravenous contrast. Oval-shaped hyperintense structure located within the left lateral breast of indeterminate etiology. Asymmetric left breast skin thickening and swelling. Extremity Venous Study: No venous thrombus identified in the LEFT upper extremity vessels evaluated above. AV fistula is patent. Breast US: Subcutaneous edema in the area of clinical concern in the left breast, may be due to cellulitis in the appropriate clinical setting. Well- circumscribed, smoothly marginated anechoic mass in the left breast 1 o'clock position approximately 3 cm from the nipple, most likely a mildly complex cyst. Abscess would be less likely but not completely excluded in the setting of overlying soft tissue infection. No solid mass identified to suggest malignancy, although evaluation for malignancy is incomplete without mammogram. Echocardiogram: Left ventricular function is preserved at 65% with normal RV function. Sinus rhythm. LVH. Left atrial enlargement. Vascular consult: Dr. Lopez stated he will see the patient on Thursday (01/09/25), with instructions to make her NPO after midnight on Thursday, elevate the left arm, and wrap it with an SWETHA bandage from hand to elbow. Surgery consult Continue Meropenem as prescribed and vancomycin as per pharmacy Carvedilol 12.5 mg p.o. q.12, hold if bradycardia, heart rate less than 50 Lovenox as prescribed pain management as prescribed ESRD on hemodialysis Nephrology consulted As per Nephrology scheduled for hemodialysis today (01/08/25) Paroxysmal atrial fibrillation Carvedilol 25 mg q12h hold if bradycardia, heart rate less than 50 Enoxaparin 90 MG SC daily Left basilar atelectasis or pneumonia Cardiomegaly Chest X-ray: Left basilar opacity which may reflect atelectasis or pneumonia. Cardiomegaly. -continue current manage Type 2 diabetes mellitus - controlled (A1c 4.4) -monitor blood sugar Essential hypertension monitor BP Hydralazine 10 mg q6h Diet: Renal Goals of care: Full code, discussed for >30 minutes o Plan discussed with patient Plan discussed with Dr. Lucero Plan discussed with: Patient, Other (RN) Plan discussed with: Patient, Other (RN) My Orders My Orders Orders - SHANT APPIAH Procedure Category Date Status Time Acetaminophen Tablet PHA 01/08/25 In Process (Tylenol Tablet) 11:30 Date of Service: Jan 08, 2025 Billing Provider: AG LUCERO MD Common Visit Codes: [id number] INP/OBS CARE(HIGH) SHANT APPIAH Jan 08, 2025 11:39
[2025-01-08] MEDS: ACETAMINOPHEN 325 MG TAB PO PRN (12:21)
--- NOTE | 2025-01-08 13:24 | DVHPN2 ---
Progress Note - Dictate Date Seen: Jan 08, 2025 Medical Necessity Reason Pt with a Central, PICC or Fol: No Subjective No new symptoms vital signs Vital Sign Date Time Temp Pulse Resp B/P (MAP) Pulse Ox O2 Delivery O2 Flow Rate FiO2 01/08/25 13:05 98.5 61 18 133/42 (72) 98 98.5 01/08/25 10:35 Nasal Cannula 3.0 01/08/25 10:35 32 Total Intake and Output 01/07/25 01/07/25 01/08/25 15:00 23:00 07:00 Intake Total 50 ml 260 ml 450 ml Balance 50 ml 260 ml 450 ml medications Current Medications Medications Dose Ordered Sig/Desiree Route Start Time Stop Time Status Last Admin Dose Admin Morphine Sulfate 2 mg Q30M PRN IV 01/05/25 06:15 Pantoprazole Sodium 40 mg DAILY@0600 PO 01/06/25 06:00 01/08/25 06:05 40 MG Acetaminophen/ Hydrocodone Bitart 1 tab Q6HPRN PRN PO 01/05/25 20:15 01/06/25 20:21 1 TAB Hydralazine HCl 10 mg Q6HP PRN IV 01/05/25 23:45 01/06/25 05:46 10 MG Carvedilol 25 mg Q12HR PO 01/06/25 22:00 01/07/25 11:03 25 MG Enoxaparin Sodium 90 mg DAILY SC 01/06/25 13:15 01/08/25 11:46 90 MG Vancomycin HCl 0 ml @ 0 mls/hr PER PHARMACY IV 01/07/25 11:45 Meropenem 50 ml @ 17 mls/hr HS IV 01/07/25 11:45 01/07/25 13:49 17 MLS/HR Albuterol 1.25 mg Q4HPRN PRN NEB 01/08/25 01:15 01/08/25 10:45 1.25 MG Acetaminophen 650 mg Q6HP PRN PO 01/08/25 11:30 01/08/25 12:21 650 MG objective Gen: NAD, AAO3 HEENT: NC,AT Cardiac: RRR, no murmur Abd: soft, no tenderness Ext: no edema Neuro: on focal deficits + left arm AVF laboratory and microbiology Laboratory Tests 01/08/25 06:00 Test 01/08/25 06:00 Range/Units Serum Glucose 79 74-106 mg/dL Assessment/Plan ESRD on HD via left arm AVF DM type II pneumonia cellulitis HTN HLD asthma colon cancer s/p resection Hyperphosphatemia Secondary hyperparathyroidism Plan: scheduled for HD for [facility] (Thursday) low K diet antibiotics per primary team AMADO post HD as needed. goal Hb: 10-11 g/dl Plan discussed with: Patient JOSEPH BERGER MD Jan 08, 2025 13:24
[2025-01-08] MEDS ORDERED: VANCOMYCIN 500mg/100mL 100 ML IV ONE (22:00)
[2025-01-08] MEDS: VANCOMYCIN 500mg/100mL 100 ML IV ONE (22:30)
[2025-01-09] VITALS (16 sets, daily range): BP systolic 105–185; BP diastolic 52–93; PULSE 70–97; RESP 15–20; TEMP 97.5–99.3; O2SAT 98–100
[2025-01-09] MEDS: EPOETIN ALFA-EPBX 4,000 UNIT/ML VIAL SC ONE (01:55)
--- NOTE | 2025-01-09 07:29 | DVHINCON2 ---
Consultation - Surgical Date Seen: Jan 09, 2025 Referring Physician Referring Physician you Reason for Consultation left arm swelling History of Present Illness History of Present Illness 79 yo f with esrd and 2 week history of left arm swelling. AVF last used ye . Pt. currently complaining of pain in left arm and breast. Past Medical/Surgical History Past Medical/Surgical History esrd, left avf Family and Social History Family and Social History none Allergies and medications Allergies: Coded Allergies: Aspirin (Verified Allergy, Unknown, 10/07/22) Penicillins (Verified Allergy, Unknown, 10/07/22) Home Meds Active Scripts Cefdinir (Cefdinir) 300 Mg Cap, 300 MG PO BID for 7 Days, #14 CAP Prov:DEBORAH VILLATORO MD 10/09/22 Reported Medications Ferrous Sulfate (Iron (Ferrous Sulfate)) 50 Mg Tab, 65 MG PO, TAB 10/08/22 Folic Acid (Folic Acid) 1 Mg Tab, 1 MG PO DAILY for 30 Days, MG 10/08/22 Cranberry (Cranberry Juice Extract) 1,000 Mg Cap, 1500 MG PO DAILY, CAP 10/08/22 Ascorbic Acid (VITAMIN C TABLET) 500 Mg Tb, 1 TAB PO DAILY, #30 TAB 3 Refills 10/08/22 Oxycodone W/ Acetaminophen (Percocet 5/325MG) 1 Tab Tb, 2 TAB PO TID, #90 TAB 10/08/22 Metoclopramide HCl (Metoclopramide Hydrochlor) 10 Mg Tab, 1 TAB PO BID 10/08/22 Carvedilol (Carvedilol) 25 Mg Tab, 1 TAB PO BID 10/08/22 Lovastatin (Lovastatin) 40 Mg Tab, 1 TAB PO DAILY 10/08/22 Sitagliptin Phosphate (Januvia) 50 Mg Tab, 1 TAB PO DAILY 10/08/22 Review of systems Review of Systems: HEENT:Normal, CVS:Normal, RESPIRATORY:Normal, GI:Normal, :Normal, MSK:Abnormal (left arm swelling) Examination Vital signs Vital Signs Date Time Temp Pulse Resp B/P (MAP) Pulse Ox O2 Delivery O2 Flow Rate FiO2 01/09/25 04:48 166/58 01/09/25 04:44 98.2 82 19 100 98.2 01/09/25 00:33 Nasal Cannula 2.0 01/09/25 00:33 28 Medications Current Medications Medications (Trade) Dose Ordered Sig/Desiree Route PRN Reason Start Time Stop Time Status Last Admin Acetaminophen (Tylenol Tablet) 650 mg Q6HP PRN PO MILD PAIN (1-3 PAIN SCALE) 01/08/25 11:30 01/08/25 12:21 Laboratory Labs Test 01/08/25 06:00 01/06/25 06:54 01/05/25 10:59 01/05/25 09:00 Range/Units White Blood Count 3.0 L 4.4-10.8 10^3/uL Red Blood Count 3.21 L 4.0-5.20 10^6/uL Hemoglobin 9.8 L 12.2-16.2 g/dL Hematocrit 31.4 L 36.0-46.0 % Mean Corpuscular Volume 97.9 80.0-100.0 fL Mean Corpuscular Hemoglobin 30.5 28.0-32.0 pg Mean Corpuscular Hemoglobin Concent 31.2 L 32.0-36.0 g/dL Red Cell Distribution Width 19.0 H 11.8-14.3 % Platelet Count 108 L 140-450 10^3/uL Mean Platelet Volume 10.0 6.9-10.8 fL Neutrophils (%) (Auto) 52.4 37.0-80.0 % Lymphocytes (%) (Auto) 31.3 10.0-50.0 % Monocytes (%) (Auto) 12.6 H 0.0-12.0 % Eosinophils (%) (Auto) 2.8 0.0-7.0 % Basophils (%) (Auto) 0.9 0.0-2.0 % Neutrophils # (Auto) 1.6 1.6-8.6 10 ^3/uL Lymphocytes # (Auto) 0.9 0.4-5.4 10 ^3/uL Monocytes # (Auto) 0.4 0-1.3 10 ^3/uL Eosinophils # (Auto) 0.1 0-0.8 10 ^3/uL Basophils # (Auto) 0 0-0.2 10 ^3/uL Nucleated Red Blood Cells 0.2 % Sodium Level 140 136-145 mmol/L Potassium Level 4.7 3.5-5.1 mmol/L Chloride Level 99 98-107 mmol/L Carbon Dioxide Level 30 20-31 mmol/L Anion Gap 11 5-15 Blood Urea Nitrogen 32 H 9-23 mg/dL Creatinine 7.72 H 0.550-1.02 mg/dL Glomerular Filtration Rate Calc 5 >90 mL/min BUN/Creatinine Ratio 4.1 L 10.0-20.0 Serum Glucose 79 74-106 mg/dL Calcium Level 9.3 8.7-10.4 mg/dL Total Bilirubin 0.4 0.2-1.0 mg/dL Aspartate Amino Transferase (AST) 11 L 13-40 U/L Alanine Aminotransferase (ALT) 9 7-40 U/L Alkaline Phosphatase 63 46-116 U/L Total Protein 5.7 5.7-8.2 g/dL Albumin 3.2 3.2-4.8 g/dL Random Vancomycin Level 16.7 H 5-10 ug/mL Hemoglobin A1c 4.4 <5.7 % A1C Troponin I High Sensitivity 22 </=34 ng/L Influenza Type A Antigen Negative Negative Influenza Type B Antigen Negative Negative SARS-CoV-2 Antigen (Rapid) Negative NEGATIVE Test 01/05/25 06:27 01/05/25 04:27 Range/Units Prothrombin Time 10.4 9.3-11.8 sec Prothrombin Time INR 0.98 0.9-1.15 Activated Partial Thromboplast Time 27.8 24.5-34.5 SEC Hepatitis A Antibody Total Positive H Negative Hepatitis B Surface Antigen Negative Negative Hepatitis B Surface Antibody Positive H Negative Hepatitis B Core Total Antibody Positive H Negative Hepatitis C Antibody Negative Negative Direct Bilirubin 0.1 <0.3 mg/dL B-Type Natriuretic Peptide 589.69 0-100 pg/mL Microbiology Date/Time Source Procedure Growth Status 01/07/25 11:19 Blood Blood Culture - Preliminary NO GROWTH AFTER 24 HOURS OF INCUBATION. Resulted 01/06/25 04:40 Nose MRSA Screen - Final Complete Examination: MSK:Abnormal (left arm + thrill and bruit with left arm swelling) Problem List/Assessment/Plan Problems: (1) Left upper extremity swelling Assessment and Plan left arm swelling with avf plan Fistulagram ruleout and treat central stenosis. Plan discussed with Plan discussed with: Patient Visit Coding Surgery Date of Service if different f: Jan 09, 2025 Billing Provider: HENRIK CORONA Jr., MD Surgery Visit Codes: [id number] - INP CONSULT <80 MIN HENRIK CORONA Jr., MD Jan 09, 2025 07:29
[2025-01-09] MEDS: IODIXANOL 320MG/ML 100ML BTL IV ONE (09:39)
[2025-01-09] MEDS: LIDOCAINE 2%HCL (LOCAL ANESTH.) INJ 20ML MDV ONE (09:39)
[2025-01-09] MEDS: fentaNYL CITRATE 100 MCG/2 ML VL ONE (09:53)
[2025-01-09] MEDS: MIDAZOLAM HCL 2MG/2ML 2ml VIAL (1mg/ml) ONE (09:53)
--- NOTE | 2025-01-09 10:38 | DVHOP2 ---
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 These include but are not limited to complications of anesthesia, postoperative infection, incomplete relief of symptoms, recurrence of symptoms, damage to blood vessels, nerves and tendons, deep venous thrombosis, pulmonary embolism and possible need for repeat surgery in the future. Estimated Blood Loss: minimal Findings: Left subclavian vein 99% stenosis treated to 20% residual stenosis with a 10 x 40 mm balloon Indications for Surgery: Left arm and breast swelling Name of Procedure Performed Left arm AV fistulogram and subclavian vein angioplasty Procedure Details Procedure Details: The patient was identified in the preop holding area. She was consented and preop by myself. She was brought back to the wood preserving plant laborer please see wood preserving plant laborer table supine position after adequate induction anesthesia antibiotics time-out. The left arm was prepped and draped normal surgical fashion. The patient has a left upper arm AV fistula which was anesthetized with 2% lidocaine. A 4 Georgian micropuncture needle was used to cannulate AV fistula. This was exchanged for a 7 Georgian sheath. Fistulogram was then performed which demonstrated widely patent left upper arm AV fistula with flow into the subclavian vein which had a 99% stenosis. There was collateralization performed in the bypass to fell into the central veins. At this point in time wire and catheter were manipulated up and across the stenosis. A 10 x 40 mm Conquest balloon was then used to angioplasty the critical 99% subclavian vein stenosis. The completion venogram demonstrated possibly 20% residual stenosis. At this point in time wires and catheter were removed. A 4 0 Monocryl subcuticular suture was used strength fashion to obtain hemostasis as the sheath was removed. Sterile dressing was applied. The patient was taken to the recovery room in stable condition. Specimen: none Condition Good Disposition Still a Patient NORBERT LOPEZ Jr., MD Jan 09, 2025 10:38
--- NOTE | 2025-01-09 12:52 | DVHPNRES ---
Progress Note Date Seen: Jan 09, 2025 Resident Creating Document: MEG HODGE Medical Necessity Reason Pt with a Central, PICC or Fol: No Subjective Review of Systems Patient is a 79-year-old female with past medical history of ESRD on HD via left arm AVF, DM type II, HTN, HLD, asthma, colon cancer, presented to [facility] ED with complaint of shortness of breath for the past 10 days, which worsens with deep breathing, and associated left-sided chest pain. She also reports swelling and pain in the left arm, swelling of the left breast, and left facial swelling. She denies fever, chills, nausea, vomiting, diarrhea, abdominal pain, headache, or neurological symptoms. She uses home oxygen at 2 L via nasal cannula. The patients last dialysis session was on January 03, at [facility], with a net ultrafiltration of 1.5 liters. She reports that three weeks ago, her previous fistula became blocked and was replaced with a new fistula in the left arm. The patient moved to [place], previously she used to live here, this time unfortunately the patient came to attend her daughter's , who on last Thursday. On arrival, potassium was 4.0 mmol/L. Chest X- ray revealed a left basilar opacity, and breast ultrasound suggested possible cellulitis. She has been started on intravenous antibiotics. Nephrology was consulted for dialysis management. The patient has minimal urine output and a GFR of 6 mL/min. On 01/06/25, Patient was seen and examined at bedside. Overnight events were reviewed. During dialysis, at 10:56 am, she developed atrial fibrillation with rapid heart rate (120-130s), but after dialysis, she converted back to normal rhythm. Blood pressure remained elevated (166/75 mmHg), and 2 liters of fluid were removed. On 01/07/25, Patient was seen and examined at bedside. Overnight events were reviewed. She was placed on 3 liters of oxygen via nasal cannula which improved her breathing. Vascular consult was requested, and Dr. Lopez stated he will see the patient on Thursday, with instructions to make her NPO after midnight on Thursday, elevate the left arm, and wrap it with an SWETHA bandage from hand to elbow. On 01/09/25, Patient was seen and examined at bedside. Overnight events were reviewed. The plan was to perform a fistulogram to rule out and treat central venous stenosis. The patient is now status post fistulogram and subclavian vein angioplasty. The patient was connected to oxygen via nasal cannula at 4 liters per minute Past medical history: [id number] diabetes mellitus, ESRD on dialysis (TTS) via a left arm arteriovenous fistula, hypertension, asthma Past surgical history: Umbilical hernia repair, tonsillectomy, appendectomy, total abdominal hysterectomy, and bilateral foot surgeries Home medications: Januvia, carvedilol 12.5, atorvastatin, folic acid, multivitamin Smoking: Quit 15 years ago. Previously 1 pack per 2 months occasionally. Twenty-five pack years Alcohol: Quit. Last drink several years ago Drugs: Previously marijuana. Does not use drugs Allergies: Penicillin, aspirin, gabapentin, Tea tree well, oranges, shrimp, lidocaine or Novocain or some anesthetics the patient can not recall which was used during her surgery in [place]. Patient seen and examined at bedside. Patient is alert and oriented to time, place person and responding to all questions. Eyes: No Pain, No Vision change, No Conjunctivae inflammation, No Eyelid inflammation, No Other, No Redness ENT: No Ear pain, No Ear discharge, No Nose pain, No Nose discharge, No Nose congestion, No Mouth pain, No Mouth swelling, No Throat pain, No Throat swelling, No Other Cardiovascular: Chest Pain, No Palpitations, No Orthopnea, No Paroxysmal No Dyspnea, Edema, No Lt Headedness, No Other Respiratory: No Cough, No Dry, No Shortness of breath, No SOB with exertion, No Wheezing, No Hemoptysis, No Pleuritic Pain, No Sputum, No Other Gastrointestinal: No Nausea, No Vomiting, No Abdominal Pain, No Diarrhea, No Constipation, No Melena, No Hematochezia, No Other Genitourinary: No Dysuria, No Frequency, No Incontinence, No Hematuria, No Retention, No Other Musculoskeletal: No other, No neck pain, No shoulder pain, arm pain, No back pain, No hand pain, No leg pain, No foot pain Skin: No Rash, No Lesions, No Jaundice, No Bruising, No Other Objective vital signs Vital Sign Date Time Temp Pulse Resp B/P (MAP) Pulse Ox O2 Delivery O2 Flow Rate FiO2 01/09/25 12:47 99.3 87 18 168/75 (106) 100 99.3 01/09/25 10:00 Nasal Cannula 3.0 01/09/25 10:00 28 Total Intake and Output 01/08/25 01/08/25 01/09/25 15:00 23:00 07:00 Intake Total 210 ml 200 ml Balance 210 ml 200 ml medications Current Medications Medications Dose Ordered Sig/Desiree Route Start Time Stop Time Status Last Admin Dose Admin Morphine Sulfate 2 mg Q30M PRN IV 01/05/25 06:15 Pantoprazole Sodium 40 mg DAILY@0600 PO 01/06/25 06:00 01/08/25 06:05 40 MG Acetaminophen/ Hydrocodone Bitart 1 tab Q6HPRN PRN PO 01/05/25 20:15 01/06/25 20:21 1 TAB Hydralazine HCl 10 mg Q6HP PRN IV 01/05/25 23:45 01/09/25 04:48 10 MG Carvedilol 25 mg Q12HR PO 01/06/25 22:00 01/08/25 23:00 25 MG Enoxaparin Sodium 90 mg DAILY SC 01/06/25 13:15 01/08/25 11:46 90 MG Vancomycin HCl 0 ml @ 0 mls/hr PER PHARMACY IV 01/07/25 11:45 Albuterol 1.25 mg Q4HPRN PRN NEB 01/08/25 01:15 01/09/25 00:33 1.25 MG Acetaminophen 650 mg Q4HP PRN PO 01/09/25 09:00 Meropenem 50 ml @ 17 mls/hr HS IV 01/09/25 22:00 Examination General Appearance: Cooperative. Well developed. Well nourished. NAD Head Exam: Normal inspection Neck Exam: Normal inspection. Non-tender. Normal alignment Pulmonary/Respiratory: Chest non-tender. Clear bilateral breath sounds, no crackles, no wheezing. Cardiovascular/Chest: Regular rate and rhythm. No murmurs. No JVD. Peripheral Pulses: 2+ Radial (R). 2+ Radial (L). 2+ Pedal (R). 2+ Pedal (L) Abdominal Exam: Normal bowel sounds. Soft. normal abdomen, no visible veins, Nontender. No hepatospenomegaly. No masses Ankle Exam: Negative ankle edema Breast exam: Left breast significant swelling erythema Upper Extremities: Left arm swelling and tenderness around AV fistula site. Erythema. No drainage noted. Lower Extremities: bilateral 1+ pitting edema noted Neuro/Mental Status: A&O x4. Coherent. Thoughts/Psych: Normal thought pattern. Appropriate mood and affect. Good judgement and insight Skin Exam: Normal inspection. Normal color. Warm. Dry laboratory and microbiology Laboratory Tests 01/08/25 06:00 Test 01/08/25 06:00 Range/Units Serum Glucose 79 74-106 mg/dL Microbiology Date/Time Source Procedure Growth Status 01/07/25 11:19 Blood Blood Culture - Preliminary NO GROWTH AFTER 48 HOURS OF INCUBATION. Resulted 01/06/25 04:40 Nose MRSA Screen - Final Complete Labs and/or images reviewed: Labs reviewed by me, Image(s) reviewed by me Problem List/Assessment/Plan Problem List/Assessment/Plan Left breast and upper extremity cellulitis Left-sided AV fistula arteriovenous fistula Severe left subclavian vein stenosis (99%) Post-angioplasty with 20% residual stenosis Left arm and breast swelling secondary to venous obstruction DVT Upper Extremity CT: Extensive surrounding subcutaneous adipose tissue edema and skin thickening of the left upper extremity with left-sided arteriovenous fistula. Chest CT: Significant asymmetric swelling of the left upper extremity and left breast with dilated left axillary and upper extremity venous structures. Partial visualization of arteriovenous fistula incompletely characterized without intravenous contrast. Oval-shaped hyperintense structure located within the left lateral breast of indeterminate etiology. Asymmetric left breast skin thickening and swelling. Extremity Venous Study: No venous thrombus identified in the LEFT upper extremity vessels evaluated above. AV fistula is patent. Breast US: Subcutaneous edema in the area of clinical concern in the left breast, may be due to cellulitis in the appropriate clinical setting. Well- circumscribed, smoothly marginated anechoic mass in the left breast 1 o'clock position approximately 3 cm from the nipple, most likely a mildly complex cyst. Abscess would be less likely but not completely excluded in the setting of overlying soft tissue infection. No solid mass identified to suggest malignancy, although evaluation for malignancy is incomplete without mammogram. Echocardiogram: Left ventricular function is preserved at 65% with normal RV function. Sinus rhythm. LVH. Left atrial enlargement. Vascular consult: The patient underwent a left arm AV fistulogram and subclavian vein angioplasty under local anesthesia. Intraoperative findings revealed a widely patent left upper arm AV fistula and a critical 99% stenosis of the left subclavian vein. Angioplasty was performed using a 10 40 mm Perospherequest balloon, reducing the stenosis to approximately 20% residual. Mild collateralization was noted. Estimated blood loss was minimal. Hemostasis was achieved with a 4-0 Monocryl subcuticular suture, and a sterile dressing was applied. Meropenem 500 mg IV daily Carvedilol 12.5 mg p.o. q.12 Ceftriaxone Doxycycline Enoxaparin 1 mg/kg daily pain management with morphine sodium chloride 0.9% ESRD on hemodialysis with AV fistula Nephrology consulted Hemodialysis on today (01/06/25): 2 liters of fluid removed. Last BP: 166/75 mmHg. Heart rate: 92 Paroxysmal atrial fibrillation Carvedilol 12.5 mg po once Carvedilol 25 mg q12h Enoxaparin 90 MG SC daily Left basilar atelectasis or pneumonia Cardiomegaly Chest X-ray: Left basilar opacity which may reflect atelectasis or pneumonia. Cardiomegaly. Type 2 diabetes mellitus - controlled (A1c 4.4) serum glucose 90 monitor Essential hypertension monitor BP Hydralazine 10 mg q6h Diet: Renal Goals of care: Full code, discussed for >30 minutes on 01/09/25 Plan discussed with patient Plan discussed with Dr. Lucero Plan discussed with: Patient My Orders My Orders Orders - MEG HODGE RESIDENT Procedure Category Date Status Time Acetaminophen Tablet PHA 01/09/25 In Process (Tylenol Tablet) 09:00 Date of Service: Jan 10, 2025 Billing Provider: AG LUCERO MD Common Visit Codes: [id number] INP/OBS CARE(HIGH) MEG HODGE RESIDENT Jan 09, 2025 12:52 ARIELLA BAKER Jan 10, 2025 14:26
--- NOTE | 2025-01-09 15:36 | DVHPN2 ---
Progress Note - Dictate Date Seen: Jan 09, 2025 Medical Necessity Reason Pt with a Central, PICC or Fol: No Subjective Today feel tired vital signs Vital Sign Date Time Temp Pulse Resp B/P (MAP) Pulse Ox O2 Delivery O2 Flow Rate FiO2 01/09/25 12:47 99.3 87 18 168/75 (106) 100 99.3 01/09/25 10:15 Nasal Cannula* 2 28 Total Intake and Output 01/08/25 01/08/25 01/09/25 15:00 23:00 07:00 Intake Total 210 ml 200 ml Balance 210 ml 200 ml medications Current Medications Medications Dose Ordered Sig/Desiree Route Start Time Stop Time Status Last Admin Dose Admin Morphine Sulfate 2 mg Q30M PRN IV 01/05/25 06:15 Pantoprazole Sodium 40 mg DAILY@0600 PO 01/06/25 06:00 01/08/25 06:05 40 MG Acetaminophen/ Hydrocodone Bitart 1 tab Q6HPRN PRN PO 01/05/25 20:15 01/06/25 20:21 1 TAB Hydralazine HCl 10 mg Q6HP PRN IV 01/05/25 23:45 01/09/25 04:48 10 MG Carvedilol 25 mg Q12HR PO 01/06/25 22:00 01/08/25 23:00 25 MG Enoxaparin Sodium 90 mg DAILY SC 01/06/25 13:15 01/08/25 11:46 90 MG Vancomycin HCl 0 ml @ 0 mls/hr PER PHARMACY IV 01/07/25 11:45 Albuterol 1.25 mg Q4HPRN PRN NEB 01/08/25 01:15 01/09/25 00:33 1.25 MG Acetaminophen 650 mg Q4HP PRN PO 01/09/25 09:00 Meropenem 50 ml @ 17 mls/hr HS IV 01/09/25 22:00 objective HEENT: No evidence of JVD, no oral ulcers. Pulmonary: Lungs are clear on auscultation bilaterally Cardiovascular S1-S2, no S3 or S4 Abdomen: Bowel sounds positive, soft no rebound tenderness Skin: No rash Neurological: Alert, oriented, no focal weakness Hemodialysis access: Left upper arm AV fistula positive bruit and thrill, edema left hand and left breast laboratory and microbiology Test 01/09/25 15:01 Range/Units Serum Glucose Pending Assessment/Plan Assessment: ESRD on HD via left arm AVF TTS DM type II pneumonia cellulitis HTN HLD asthma colon cancer s/p resection Hyperphosphatemia Secondary hyperparathyroidism Plan: Continue dialysis TTS low K diet Analgesics antibiotics per primary team AMADO post HD as needed. goal Hb: 10-11 g/dl Plan discussed with: Patient NENA SCHWARTZ MD Jan 09, 2025 15:36
[2025-01-09 15:39] LABS: Hematocrit 29.9 % (36.0-46.0); Hemoglobin 9.3 g/dL (12.2-16.2); Mean Corpuscular Hemoglobin 30.6 pg (28.0-32.0); Mean Corpuscular Volume 97.8 fL (80.0-100.0); Nucleated Red Blood Cells % 0.2 %
[2025-01-09 15:40] LABS: Alanine Aminotransferase 11 U/L (7-40); Alkaline Phosphatase 60 U/L (46-116); Anion Gap 9 (5-15); BUN/Creatinine Ratio 3.6 (10.0-20.0); Bilirubin, Total 0.3 mg/dL (0.2-1.0); Blood Urea Nitrogen 21 mg/dL (9-23); Calcium 9.2 mg/dL (8.7-10.4); Chloride 98 mmol/L (98-107); Magnesium 2.1 mg/dL (1.6-2.6); Potassium 4.2 mmol/L (3.5-5.1); Sodium 140 mmol/L (136-145)
[2025-01-09 15:47] LABS: Albumin 3.0 g/dL (3.2-4.8); Carbon Dioxide 33 mmol/L (20-31); Glucose 120 mg/dL (74-106); Total Protein 5.3 g/dL (5.7-8.2)
[2025-01-09] MEDS: VANCOMYCIN 500mg/100mL 100 ML IV ONE (16:57)
--- NOTE | 2025-01-09 19:27 | DVH ---
C-ARM FLUOROSCOPY: PROCEDURE: Fistulagram FINDINGS: Spot intraoperative C arm radiographs demonstrating fistulagram. IMPRESSION: Please refer to surgical report for detailed findings.
[2025-01-09] MEDS: ACETAMINOPHEN 325 MG TAB PO PRN (22:56)
[2025-01-09] MEDS: MEROPENEM 1GM IVPB 50 ML IV SCH (23:02)
[2025-01-10] VITALS (11 sets, daily range): BP systolic 126–158; BP diastolic 46–70; PULSE 80–92; RESP 16–18; TEMP 97.5–98.5; O2SAT 96–100
[2025-01-10] MEDS ORDERED: SODIUM CHL 0.9% 1000 ML BAG XX ONE (07:00)
[2025-01-10 07:24] LABS: Hematocrit 31.9 % (36.0-46.0); Hemoglobin 10.0 g/dL (12.2-16.2); Mean Corpuscular Hemoglobin 30.8 pg (28.0-32.0); Mean Corpuscular Volume 97.9 fL (80.0-100.0); Nucleated Red Blood Cells % 0.1 %
[2025-01-10 07:44] LABS: Alanine Aminotransferase 13 U/L (7-40); Albumin 3.2 g/dL (3.2-4.8); Alkaline Phosphatase 64 U/L (46-116); Anion Gap 10 (5-15); BUN/Creatinine Ratio 4.0 (10.0-20.0); Calcium 9.4 mg/dL (8.7-10.4); Chloride 98 mmol/L (98-107); Potassium 4.7 mmol/L (3.5-5.1); Sodium 140 mmol/L (136-145)
[2025-01-10 07:45] LABS: Blood Urea Nitrogen 27 mg/dL (9-23); Carbon Dioxide 32 mmol/L (20-31); Glucose 108 mg/dL (74-106); Total Protein 5.7 g/dL (5.7-8.2)
[2025-01-10 07:50] LABS: Bilirubin, Total 0.3 mg/dL (0.2-1.0)
--- NOTE | 2025-01-10 10:57 | ECG ---
[facility] Test Date: 2025-01-06 Test Time: 11:26:36 Pat Name: RIMMA GONZALEZ Department: Room: 0280T A Gender: F Manager Perioperative: RAYMUNDO : 1945 Requested By: MEG YOU Order Number: [id number] Reading MD: Usman Quinones Measurements Intervals Yulan Rate: 110 P: 0 ND: 0 QRS: -48 QRSD: 131 T: 62 QT: 377 QTc: 511 Interpretive Statements Atrial fibrillation Ventricular premature complex Right bundle branch block Electronically Signed On 01-11-2025 17:36:45 PST by Usman Quinones Please click the below link to view image of tracing.
--- NOTE | 2025-01-10 12:58 | MEDREC ---
[facility] ASP Intervention Section I [facility] ASP Intervention: Review courses of therapy (PLEASE CONSIDER DE-ESCALATION OF ANTIBIOTICS AND EMPIRIC TREATMENT FOR CELLULITIS) ZEUS AGUILA PHARMACIST Jan 10, 2025 12:58
--- NOTE | 2025-01-10 14:19 | DVHPNRES ---
Progress Note Date Seen: Jan 10, 2025 Resident Creating Document: MEG HODGE Medical Necessity Reason Pt with a Central, PICC or Fol: No Subjective Review of Systems Patient is a 79-year-old female with past medical history of ESRD on HD via left arm AVF, DM type II, HTN, HLD, asthma, colon cancer, presented to [facility] ED with complaint of shortness of breath for the past 10 days, which worsens with deep breathing, and associated left-sided chest pain. She also reports swelling and pain in the left arm, swelling of the left breast, and left facial swelling. She denies fever, chills, nausea, vomiting, diarrhea, abdominal pain, headache, or neurological symptoms. She uses home oxygen at 2 L via nasal cannula. The patients last dialysis session was on January 03, at [facility], with a net ultrafiltration of 1.5 liters. She reports that three weeks ago, her previous fistula became blocked and was replaced with a new fistula in the left arm. The patient moved to [place], previously she used to live here, this time unfortunately the patient came to attend her daughter's , who on last Thursday. On arrival, potassium was 4.0 mmol/L. Chest X- ray revealed a left basilar opacity, and breast ultrasound suggested possible cellulitis. She has been started on intravenous antibiotics. Nephrology was consulted for dialysis management. The patient has minimal urine output and a GFR of 6 mL/min. On 01/06/25, Patient was seen and examined at bedside. Overnight events were reviewed. During dialysis, at 10:56 am, she developed atrial fibrillation with rapid heart rate (120-130s), but after dialysis, she converted back to normal rhythm. Blood pressure remained elevated (166/75 mmHg), and 2 liters of fluid were removed. On 01/07/25, Patient was seen and examined at bedside. Overnight events were reviewed. She was placed on 3 liters of oxygen via nasal cannula which improved her breathing. Vascular consult was requested, and Dr. Lopez stated he will see the patient on Thursday, with instructions to make her NPO after midnight on Thursday, elevate the left arm, and wrap it with an SWETHA bandage from hand to elbow. On 01/09/25, Patient was seen and examined at bedside. Overnight events were reviewed. The plan was to perform a fistulogram to rule out and treat central venous stenosis. The patient is now status post fistulogram and subclavian vein angioplasty. The patient was connected to oxygen via nasal cannula at 4 liters per minute On 01/10/25, Patient was seen and examined at bedside. Overnight events were reviewed. Patient complains of left arm pain generalized weakness. Today dialysis was completed uneventfully, continue dialysis TTS. Past medical history: Lwu-wealohc-ajhgyxege diabetes mellitus, ESRD on dialysis (TTS) via a left arm arteriovenous fistula, hypertension, asthma Past surgical history: Umbilical hernia repair, tonsillectomy, appendectomy, total abdominal hysterectomy, and bilateral foot surgeries Home medications: Januvia, carvedilol 12.5, atorvastatin, folic acid, multivitamin Smoking: Quit 15 years ago. Previously 1 pack per 2 months occasionally. Twenty-five pack years Alcohol: Quit. Last drink several years ago Drugs: Previously marijuana. Does not use drugs Allergies: Penicillin, aspirin, gabapentin, Tea tree well, oranges, shrimp, lidocaine or Novocain or some anesthetics the patient can not recall which was used during her surgery in [place]. Patient seen and examined at bedside. Patient is alert and oriented to time, place person and responding to all questions. Eyes: No Pain, No Vision change, No Conjunctivae inflammation, No Eyelid inflammation, No Other, No Redness ENT: No Ear pain, No Ear discharge, No Nose pain, No Nose discharge, No Nose congestion, No Mouth pain, No Mouth swelling, No Throat pain, No Throat swelling, No Other Cardiovascular: Chest Pain, No Palpitations, No Orthopnea, No Paroxysmal No Dyspnea, Edema, No Lt Headedness, No Other Respiratory: No Cough, No Dry, No Shortness of breath, No SOB with exertion, No Wheezing, No Hemoptysis, No Pleuritic Pain, No Sputum, No Other Gastrointestinal: No Nausea, No Vomiting, No Abdominal Pain, No Diarrhea, No Constipation, No Melena, No Hematochezia, No Other Genitourinary: No Dysuria, No Frequency, No Incontinence, No Hematuria, No Retention, No Other Musculoskeletal: No other, No neck pain, No shoulder pain, arm pain, No back pain, No hand pain, No leg pain, No foot pain Skin: No Rash, No Lesions, No Jaundice, No Bruising, No Other Objective vital signs Vital Sign Date Time Temp Pulse Resp B/P (MAP) Pulse Ox O2 Delivery O2 Flow Rate FiO2 01/10/25 10:00 100 Nasal Cannula* 2 28 01/10/25 09:00 97.9 83 18 158/47 (84) 97.9 Total Intake and Output 01/09/25 01/09/25 01/10/25 14:59 22:59 06:59 Intake Total 400 ml 300 ml Balance 400 ml 300 ml medications Current Medications Medications Dose Ordered Sig/Desiree Route Start Time Stop Time Status Last Admin Dose Admin Morphine Sulfate 2 mg Q30M PRN IV 01/05/25 06:15 Pantoprazole Sodium 40 mg DAILY@0600 PO 01/06/25 06:00 01/10/25 05:07 40 MG Acetaminophen/ Hydrocodone Bitart 1 tab Q6HPRN PRN PO 01/05/25 20:15 01/09/25 15:44 1 TAB Hydralazine HCl 10 mg Q6HP PRN IV 01/05/25 23:45 01/09/25 15:41 10 MG Carvedilol 25 mg Q12HR PO 01/06/25 22:00 01/09/25 22:55 25 MG Enoxaparin Sodium 90 mg DAILY SC 01/06/25 13:15 01/08/25 11:46 90 MG Vancomycin HCl 0 ml @ 0 mls/hr PER PHARMACY IV 01/07/25 11:45 Albuterol 1.25 mg Q4HPRN PRN NEB 01/08/25 01:15 01/09/25 00:33 1.25 MG Acetaminophen 650 mg Q4HP PRN PO 01/09/25 09:00 01/09/25 22:56 650 MG Meropenem 50 ml @ 17 mls/hr HS IV 01/09/25 22:00 01/09/25 23:02 17 MLS/HR Examination General Appearance: Cooperative. Well developed. Well nourished. NAD Head Exam: Normal inspection Neck Exam: Normal inspection. Non-tender. Normal alignment Pulmonary/Respiratory: Chest non-tender. Clear bilateral breath sounds, no crackles, no wheezing. Cardiovascular/Chest: Regular rate and rhythm. No murmurs. No JVD. Peripheral Pulses: 2+ Radial (R). 2+ Radial (L). 2+ Pedal (R). 2+ Pedal (L) Abdominal Exam: Normal bowel sounds. Soft. normal abdomen, no visible veins, Nontender. No hepatospenomegaly. No masses Ankle Exam: Negative ankle edema Breast exam: Left breast significant swelling erythema Upper Extremities: Left arm swelling and tenderness around AV fistula site. Erythema. No drainage noted. Lower Extremities: bilateral 1+ pitting edema noted Neuro/Mental Status: A&O x4. Coherent. Thoughts/Psych: Normal thought pattern. Appropriate mood and affect. Good judgement and insight Skin Exam: Normal inspection. Normal color. Warm. Dry laboratory and microbiology Laboratory Tests 01/10/25 06:59 Test 01/10/25 06:59 Range/Units Serum Glucose 108 H 74-106 mg/dL Microbiology Date/Time Source Procedure Growth Status 01/07/25 11:19 Blood Blood Culture - Preliminary NO GROWTH AFTER 72 HOURS OF INCUBATION. 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 Chest CT: Significant asymmetric swelling of the left upper extremity and left breast with dilated left axillary and upper extremity venous structures. Partial visualization of arteriovenous fistula incompletely characterized without intravenous contrast. Oval-shaped hyperintense structure located within the left lateral breast of indeterminate etiology. Asymmetric left breast skin thickening and swelling. Extremity Venous Study: No venous thrombus identified in the LEFT upper extremity vessels evaluated above. AV fistula is patent. Breast US: Subcutaneous edema in the area of clinical concern in the left breast, may be due to cellulitis in the appropriate clinical setting. Well- circumscribed, smoothly marginated anechoic mass in the left breast 1 o'clock position approximately 3 cm from the nipple, most likely a mildly complex cyst. Abscess would be less likely but not completely excluded in the setting of overlying soft tissue infection. No solid mass identified to suggest malignancy, although evaluation for malignancy is incomplete without mammogram. Echocardiogram: Left ventricular function is preserved at 65% with normal RV function. Sinus rhythm. LVH. Left atrial enlargement. Vascular consult: The patient underwent a left arm AV fistulogram and subclavian vein angioplasty under local anesthesia. Intraoperative findings revealed a widely patent left upper arm AV fistula and a critical 99% stenosis of the left subclavian vein. Angioplasty was performed using a 10 40 mm Conquest balloon, reducing the stenosis to approximately 20% residual. Mild collateralization was noted. Estimated blood loss was minimal. Hemostasis was achieved with a 4-0 Monocryl subcuticular suture, and a sterile dressing was applied. The patient was transferred to the recovery room in stable condition. Surgery consult Meropenem 50 ml IV daily Enoxaparin Sodium 90 mg daily sc pain management with Tylenol, Morphine and [place] sodium chloride 0.9% Vancomycin per pharmacy Albuterol 1.25 q4h prn Epoetin Praneeth-epbx 10,000 unit ESRD on hemodialysis with AV fistula Nephrology consulted Hemodialysis on 01/06/25: 2 liters of fluid removed. Last BP: 166/75 mmHg. Heart rate: 92 Hemodialysis on 01/10/25: 2 liters of fluid removed. Last BP: 138/50 mmHg. Paroxysmal atrial fibrillation Carvedilol 12.5 mg po once Carvedilol 25 mg q12h Enoxaparin 90 MG SC daily Left basilar atelectasis or pneumonia Cardiomegaly Chest X-ray: Left basilar opacity which may reflect atelectasis or pneumonia. Cardiomegaly. Type 2 diabetes mellitus - controlled (A1c 4.4) serum glucose 90 monitor Essential hypertension monitor BP Hydralazine 10 mg q6h Diet: Renal PUD prophylaxis: Protonix 40mg Goals of care: Full code, discussed for >30 minutes on 01/10/25 Plan discussed with patient Plan discussed with Dr. Brennan Plan discussed with: Patient My Orders My Orders Orders - MEG HODGE Procedure Category Date Status Time Complete Blood Count LAB 01/11/25 Verified 04:00 Comprehensive LAB 01/11/25 Verified Metabolic Panel 04:00 Date of Service: Jan 10, 2025 Billing Provider: AG BRENNAN MD Common Visit Codes: [id number] INP/OBS CARE(HIGH) MEG HODGE Jan 10, 2025 14:19
--- NOTE | 2025-01-10 14:39 | DVHPN2 ---
Progress Note - Dictate Date Seen: Jan 10, 2025 Medical Necessity Reason Pt with a Central, PICC or Fol: No Subjective No complaints today except for generalized weakness vital signs Vital Sign Date Time Temp Pulse Resp B/P (MAP) Pulse Ox O2 Delivery O2 Flow Rate FiO2 01/10/25 10:00 100 Nasal Cannula* 2 28 01/10/25 09:00 97.9 83 18 158/47 (84) 97.9 Total Intake and Output 01/09/25 01/09/25 01/10/25 15:00 23:00 07:00 Intake Total 400 ml 300 ml Balance 400 ml 300 ml medications Current Medications Medications Dose Ordered Sig/Desiree Route Start Time Stop Time Status Last Admin Dose Admin Morphine Sulfate 2 mg Q30M PRN IV 01/05/25 06:15 Pantoprazole Sodium 40 mg DAILY@0600 PO 01/06/25 06:00 01/10/25 05:07 40 MG Acetaminophen/ Hydrocodone Bitart 1 tab Q6HPRN PRN PO 01/05/25 20:15 01/09/25 15:44 1 TAB Hydralazine HCl 10 mg Q6HP PRN IV 01/05/25 23:45 01/09/25 15:41 10 MG Carvedilol 25 mg Q12HR PO 01/06/25 22:00 01/09/25 22:55 25 MG Enoxaparin Sodium 90 mg DAILY SC 01/06/25 13:15 01/08/25 11:46 90 MG Vancomycin HCl 0 ml @ 0 mls/hr PER PHARMACY IV 01/07/25 11:45 Albuterol 1.25 mg Q4HPRN PRN NEB 01/08/25 01:15 01/09/25 00:33 1.25 MG Acetaminophen 650 mg Q4HP PRN PO 01/09/25 09:00 01/09/25 22:56 650 MG Meropenem 50 ml @ 17 mls/hr HS IV 01/09/25 22:00 01/09/25 23:02 17 MLS/HR objective HEENT: No evidence of JVD, no oral ulcers. Pulmonary: Lungs are clear on auscultation bilaterally Cardiovascular S1-S2, no S3 or S4 Abdomen: Bowel sounds positive, soft no rebound tenderness Skin: No rash Neurological: Alert, oriented, no focal weakness Hemodialysis access: Left upper arm AV fistula positive bruit and thrill, edema left hand and left breast laboratory and microbiology Laboratory Tests 01/10/25 06:59 Test 01/10/25 06:59 Range/Units Serum Glucose 108 H 74-106 mg/dL Assessment/Plan Assessment: ESRD on HD via left arm AVF TTS, status post fistulogram Left arm AV fistulogram and subclavian vein angioplasty DM type II pneumonia cellulitis HTN HLD asthma colon cancer s/p resection Hyperphosphatemia Secondary hyperparathyroidism Plan: Continue dialysis TTS, today dialysis was completed uneventfully low K diet Analgesics antibiotics per primary team Stable from Nephrology perspective AMADO post HD as needed. goal Hb: 10-11 g/dl Plan discussed with: Patient NENA SCHWARTZ MD Jan 10, 2025 14:39
[2025-01-10] MEDS: EPOETIN ALFA-EPBX 10,000 UNIT/1ML VIAL SC ONE (21:58)
[2025-01-11] VITALS (13 sets, daily range): BP systolic 117–151; BP diastolic 39–69; PULSE 53–100; RESP 14–20; TEMP 37.5; O2SAT 93–100
[2025-01-11 06:51] LABS: Hematocrit 30.0 % (36.0-46.0); Hemoglobin 9.4 g/dL (12.2-16.2); Mean Corpuscular Hemoglobin 30.6 pg (28.0-32.0); Mean Corpuscular Volume 97.7 fL (80.0-100.0); Nucleated Red Blood Cells % 0.0 %
[2025-01-11 07:33] LABS: Alanine Aminotransferase 12 U/L (7-40); Alkaline Phosphatase 59 U/L (46-116); Anion Gap 10 (5-15); BUN/Creatinine Ratio 3.6 (10.0-20.0); Blood Urea Nitrogen 18 mg/dL (9-23); Calcium 8.8 mg/dL (8.7-10.4); Potassium 3.9 mmol/L (3.5-5.1); Sodium 138 mmol/L (136-145)
[2025-01-11 07:34] LABS: Albumin 3.0 g/dL (3.2-4.8); Bilirubin, Total 0.3 mg/dL (0.2-1.0); Carbon Dioxide 32 mmol/L (20-31); Chloride 96 mmol/L (98-107); Glucose 130 mg/dL (74-106); Total Protein 5.3 g/dL (5.7-8.2)
[2025-01-11] MEDS ORDERED: APIX5TAB PO ×2 (13:54)
--- NOTE | 2025-01-11 14:56 | DVHDSRES ---
Discharge Summary Date of Admission Resident Creating Document: MEG HODGE RESIDENT Jan 05, 2025 at 06:08 Date of Discharge: Jan 11, 2025 Admitting Diagnosis Swelling of the left arm, breast Labs/Diagnostic Data: Laboratory Results Test 01/11/25 06:05 01/09/25 15:01 01/06/25 06:54 01/05/25 10:59 White Blood Count 4.5 10^3/uL (4.4-10.8) Red Blood Count 3.07 10^6/uL (4.0-5.20) Hemoglobin 9.4 g/dL (12.2-16.2) Hematocrit 30.0 % (36.0-46.0) Mean Corpuscular Volume 97.7 fL (80.0-100.0) Mean Corpuscular Hemoglobin 30.6 pg (28.0-32.0) Mean Corpuscular Hemoglobin Concent 31.4 g/dL (32.0-36.0) Red Cell Distribution Width 18.3 % (11.8-14.3) Platelet Count 109 10^3/uL (140-450) Mean Platelet Volume 10.8 fL (6.9-10.8) Neutrophils (%) (Auto) 59.7 % (37.0-80.0) Lymphocytes (%) (Auto) 27.5 % (10.0-50.0) Monocytes (%) (Auto) 10.2 % (0.0-12.0) Eosinophils (%) (Auto) 1.9 % (0.0-7.0) Basophils (%) (Auto) 0.7 % (0.0-2.0) Neutrophils # (Auto) 2.7 10 ^3/uL (1.6-8.6) Lymphocytes # (Auto) 1.2 10 ^3/uL (0.4-5.4) Monocytes # (Auto) 0.5 10 ^3/uL (0-1.3) Eosinophils # (Auto) 0.1 10 ^3/uL (0-0.8) Basophils # (Auto) 0 10 ^3/uL (0-0.2) Nucleated Red Blood Cells 0.0 % Sodium Level 138 mmol/L (136-145) Potassium Level 3.9 mmol/L (3.5-5.1) Chloride Level 96 mmol/L (98-107) Carbon Dioxide Level 32 mmol/L (20-31) Anion Gap 10 (5-15) Blood Urea Nitrogen 18 mg/dL (9-23) Creatinine 5.03 mg/dL (0.550-1.02) Glomerular Filtration Rate Calc 8 mL/min (>90) BUN/Creatinine Ratio 3.6 (10.0-20.0) Serum Glucose 130 mg/dL (74-106) Calcium Level 8.8 mg/dL (8.7-10.4) Total Bilirubin 0.3 mg/dL (0.2-1.0) Aspartate Amino Transferase (AST) 13 U/L (13-40) Alanine Aminotransferase (ALT) 12 U/L (7-40) Alkaline Phosphatase 59 U/L (46-116) Total Protein 5.3 g/dL (5.7-8.2) Albumin 3.0 g/dL (3.2-4.8) Random Vancomycin Level 16.9 ug/mL (5-10) Magnesium Level 2.1 mg/dL (1.6-2.6) Hemoglobin A1c 4.4 % A1C (<5.7) Troponin I High Sensitivity 22 ng/L (</=34) Test 01/05/25 09:00 01/05/25 06:27 01/05/25 04:27 Influenza Type A Antigen Negative (Negative) Influenza Type B Antigen Negative (Negative) SARS-CoV-2 Antigen (Rapid) Negative (NEGATIVE) Prothrombin Time 10.4 sec (9.3-11.8) Prothrombin Time INR 0.98 (0.9-1.15) Activated Partial Thromboplast Time 27.8 SEC (24.5-34.5) Hepatitis A Antibody Total Positive (Negative) Hepatitis B Surface Antigen Negative (Negative) Hepatitis B Surface Antibody Positive (Negative) Hepatitis B Core Total Antibody Positive (Negative) Hepatitis C Antibody Negative (Negative) Direct Bilirubin 0.1 mg/dL (<0.3) B-Type Natriuretic Peptide 589.69 pg/mL (0-100) Other Laboratory Tests 01/11/25 06:05 Brief Hx & Hospital Course: The patient is a 79-year-old female with a history of end-stage renal disease on hemodialysis via a left arm arteriovenous fistula, type 2 diabetes mellitus, hypertension, hyperlipidemia, asthma, and colon cancer who presented with shortness of breath, left-sided chest pain, and swelling of the left arm, breast, and face. She denied fever, chills, gastrointestinal symptoms, headache, or neurological complaints. She uses home oxygen at 2 liters via nasal cannula. Her last dialysis session was several days prior, and she recently had a new AV fistula placed after her previous one became blocked. On arrival, potassium was 4.0 mmol/L. Chest X-ray showed a left basilar opacity, and breast ultrasound suggested cellulitis. She was started on intravenous antibiotics, and nephrology was consulted for dialysis management. The patient has minimal urine output and a GFR of 6 mL/min. Hospital course During hospitalization, she developed atrial fibrillation with rapid ventricular response during dialysis, which resolved spontaneously after treatment. Blood pressure remained elevated, and fluid removal was achieved during dialysis. Oxygen requirements increased, and vascular surgery was consulted for suspected central venous stenosis. Imaging revealed significant swelling of the left upper extremity and breast, dilated venous structures, and no evidence of thrombus. Breast ultrasound showed subcutaneous edema and a mildly complex cyst. Echocardiogram demonstrated preserved left ventricular function (EF 65%), normal right ventricular function, sinus rhythm, left ventricular hypertrophy, and left atrial enlargement. EKG showed sinus rhythm with supraventricular bigeminy, probable left atrial enlargement, and right bundle branch block. The patient underwent a left arm AV fistulogram and subclavian vein angioplasty under local anesthesia for a critical 99% stenosis, which was reduced to approximately 20% residual using a 10 40 mm balloon. Mild collateralization was noted, and the procedure was well tolerated with minimal blood loss. She continued dialysis without complications and remained on supplemental oxygen. Treatment included intravenous meropenem and vancomycin, enoxaparin for anticoagulation, pain control with acetaminophen, morphine, and [place], epoetin cristobal therapy, and albuterol as needed. Blood pressure was managed with carvedilol and hydralazine. She was maintained on a renal diet with PUD prophylaxis using pantoprazole. The patient was discharged in stable condition with instructions to continue dialysis on Thursday, , and Thursday. She was prescribed Eliquis (apixaban) 5 mg orally twice daily for anticoagulation due to paroxysmal atrial fibrillation. Other home medications were continued, including carvedilol, hydralazine, Januvia, atorvastatin, folic acid, and multivitamin. She was advised to maintain a renal diet, monitor blood pressure and blood glucose, and follow up with nephrology and vascular surgery as scheduled. She was instructed to seek immediate care for worsening shortness of breath, chest pain, bleeding, or signs of infection. Examination General Appearance: Cooperative. Well developed. Well nourished. NAD Head Exam: Normal inspection Neck Exam: Normal inspection. Non-tender. Normal alignment Pulmonary/Respiratory: Chest non-tender. Clear bilateral breath sounds, no crackles, no wheezing. Cardiovascular/Chest: Regular rate and rhythm. No murmurs. No JVD. Peripheral Pulses: 2+ Radial (R). 2+ Radial (L). 2+ Pedal (R). 2+ Pedal (L) Abdominal Exam: Normal bowel sounds. Soft. normal abdomen, no visible veins, Nontender. No hepatospenomegaly. No masses Ankle Exam: Negative ankle edema Breast exam: Left breast significant swelling erythema Upper Extremities: Left arm swelling and tenderness around AV fistula site. Erythema. No drainage noted. Lower Extremities: bilateral 1+ pitting edema noted Neuro/Mental Status: A&O x4. Coherent. Thoughts/Psych: Normal thought pattern. Appropriate mood and affect. Good judgement and insight Skin Exam: Normal inspection. Normal color. Warm. Dry Operations or Procedures PATIENT: RIMMA GONZALEZ ACCT: [id number] UNIT: [id number] : 1945 LOC: [facility] ROOM / BED: [address] [place] [address] A AGE / SEX: 79 / F ADM STATUS: ADM IN SERVICE 0944 ORDERING PHYSICIAN: NORBERT CORONA Jr., MD PROCEDURE(s): CARM1 - C ARM FLUOROSCOPY UP TO 60MIN REASON: fistulagram ORDER NUMBER(s): [id number], ACCESSION NUMBER(s): [id number] C-ARM FLUOROSCOPY: PROCEDURE: Fistulagram FINDINGS: Spot intraoperative C arm radiographs demonstrating fistulagram. IMPRESSION: Please refer to surgical report for detailed findings. PATIENT: RIMMA GONZALEZ ACCT: [id number] UNIT: [id number] : 1945 LOC: [facility] ROOM / BED: [address] [place] [address] / AGE / SEX: 79 / F ADM STATUS: ADM IN SERVICE 1303 ORDERING PHYSICIAN: ARIELLA BAKER RESIDENT PROCEDURE(s): UPEWO - UPPER EXTREMITY WO CONTRAST REASON: left rule out abcess in her fistula ORDER NUMBER(s): [id number], ACCESSION NUMBER(s): [id number] EXAM: UPPER EXTREMITY WO CONTRAST INDICATION: left rule out abcess in her fistula TECHNIQUE: Axial images of left upper extremity without contrast have been obtained along with coronal and sagittal reformatted images. All CT scans at this facility use dose modulation, iterative reconstruction, and/or weight based dosing when appropriate to reduce radiation dose to as low as reasonably achievable. COMPARISON: None FINDINGS: Limited evaluation without intravenous contrast BONES: No CT evidence of an acute fracture or aggressive osseous lesion. abnormal periosteal reaction along the proximal humeral meta diaphysis and humeral head, which may be seen in the setting of chronic venous stasis. No abnormal osseous erosion, lucency, sclerosis to suggest osteomyelitis. MUSCLES: Significant surrounding edematous appearance of the intrinsic musculature of the left upper extremity. JOINT SPACES: No joint effusion. TENDONS/LIGAMENTS: Limited evaluation OTHER: Vascular calcifications. Extensive surrounding subcutaneous adipose tissue edema and skin thickening of the left upper extremity with left-sided arteriovenous fistula. In regards to the clinical question, no definitive windy fistula hypoattenuating fluid collection to suggest abscess allowing for significant limitation without intravenous contrast. No suspicious soft tissue emphysema. IMPRESSION: 1. No definitive CT evidence of an abscess allowing for significant limitation without intravenous contrast. 2. Extensive surrounding subcutaneous adipose tissue edema and skin thickening of the left upper extremity with left-sided arteriovenous fistula. - PATIENT: RIMMA GONZALEZ ACCT: [id number] UNIT: [id number] : 1945 LOC: [facility] ROOM / BED: [facility] / A AGE / SEX: 79 / F ADM STATUS: ADM IN SERVICE 1303 ORDERING PHYSICIAN: ARIELLA BAKER RESIDENT PROCEDURE(s): CX2CT - CHEST WITHOUT CONTRAST REASON: breast abcess ORDER NUMBER(s): [id number], ACCESSION NUMBER(s): [id number] EXAM: CT CHEST WITHOUT CONTRAST INDICATION: breast abcess TECHNIQUE: Noncontrast axial images of the chest have been obtained along with coronal and sagittal reformatted images. All CT scans at this facility use dose modulation, iterative reconstruction, and/or weight based dosing when appropriate to reduce radiation dose to as low as reasonably achievable. COMPARISON: XY CHEST XRAY 1 VIEW on DOS: 01/05/25 FINDINGS: LOWER NECK: Prominent left thyroid lobe enlargement with minimal superior mediastinal extension LYMPH NODES/MEDIASTINUM: No abnormal lymph nodes by CT size criteria CARDIOVASCULAR: Normal cardiac size. Trace pericardial fluid. No aneurysmal dilatation of the great vessels. Coronary artery calcifications. UPPER ABDOMEN: Trace possible gallbladder sludge versus cholelithiasis. Postsurgical changes to the right bowel loops. Stomach is decompressed. MUSCULOSKELETAL: No acute fracture or aggressive focal osseous lesion. Multilevel degenerative change of the visualized spine. CHEST WALL: Significant asymmetric left upper extremity edema insinuating along the subcutaneous adipose tissues with asymmetric left upper extremity superficial varicosities and asymmetric dilation of the left venous structures. Presumed known left upper extremity fistula. Subsequent asymmetric significant swelling of the left breast. Indeterminate oval-shaped structure in the left lateral breast measuring 19 mm. Correlation with prior mammograms and/or follow up diagnostic mammogram if clinically indicated LUNG PARENCHYMA/PLEURAL SPACE: No pleural effusion or pneumothorax. Atelectasis and/or scarring in the left lung base. IMPRESSION: 1. Significant asymmetric swelling of the left upper extremity and left breast with dilated left axillary and upper extremity venous structures. 2. Partial visualization of arteriovenous fistula incompletely characterized without intravenous contrast. 3. Oval-shaped hyperintense structure located within the left lateral breast of indeterminate etiology. Asymmetric left breast skin thickening and swelling. Diagnostic mammogram and ultrasound may be considered if not already performed. PATIENT: RIMMA GONZALEZ ACCT: [id number] UNIT: [id number] : 1945 LOC: [facility] ROOM / BED: [address] [place] [address] AGE / SEX: 79 / F ADM STATUS: ADM IN SERVICE 0616 ORDERING PHYSICIAN: BRAYDEN PALACIOS RESIDENT PROCEDURE(s): LUDVT - LT Upper DVT REASON: Left upper extremity swelling ORDER NUMBER(s): [id number], ACCESSION NUMBER(s): [id number] LEFT Upper Extremity Venous Duplex Clinical History: Left upper extremity swelling Comparison: None Findings: Duplex Doppler evaluation of the venous system of the LEFT lower neck and upper extremity including color Doppler and spectral/pulsed waveform analysis was performed. The internal jugular vein demonstrates appropriate compressibility and waveform variability. The subclavian vein is patent on color Doppler evaluation without intraluminal thrombus and demonstrates waveform variability. The visualized portion of the brachiocephalic vein is patent on color Doppler evaluation without intraluminal thrombus and demonstrates waveform variability. The axillary vein demonstrates appropriate compressibility and waveform variability. Brachial vein thru cephalic vein not seen . Impression: No venous thrombus identified in the LEFT upper extremity vessels evaluated above. AV fistula is patent. If clinical concern/symptoms persist or worsen, short-interval follow-up study is suggested. - PATIENT: RIMMA GONZALEZ ACCT: [id number] UNIT: [id number] : 1945 LOC: [facility] ROOM / BED: [address] [place] [address] AGE / SEX: 79 / F ADM STATUS: ADM IN SERVICE 5 ORDERING PHYSICIAN: BRAYDEN PALACIOS PROCEDURE(s): LBRST - L BREAST ULTRASOUND REASON: swelling of the lt breast ORDER NUMBER(s): [id number], ACCESSION NUMBER(s): [id number] US OF THE LEFT BREAST INDICATION: Swelling of the left breast. TECHNIQUE: Targeted ultrasound of the left breast was performed, scanning the area of clinical concern, assisted by color doppler technique. COMPARISON: No prior breast imaging was available for comparison at the time of dictation. FINDINGS: The area scanned includes the 12:00 p.m. and 1:00 a.m. positions of the left breast. The patient was reportedly unable to raise her arm in order to scan the axillary region. There is prominent subcutaneous edema in the area of clinical concern, which is nonspecific, may be seen with cellulitis in the appropriate clinical setting. There is a focal anechoic structure measuring 2.3 x 1.4 x 1.7 cm in the 1 o'clock position approximately 3 cm from the nipple, possibly a mildly complex cyst. No significant peripheral vascular flow to suggest abscess. No solid mass demonstrated. IMPRESSION: 1. Subcutaneous edema in the area of clinical concern in the left breast, may be due to cellulitis in the appropriate clinical setting. 2. Well-circumscribed, smoothly marginated anechoic mass in the left breast 1 o'clock position approximately 3 cm from the nipple, most likely a mildly complex cyst. Abscess would be less likely but not completely excluded in the setting of overlying soft tissue infection. No solid mass identified to suggest malignancy, although evaluation for malignancy is incomplete without mammogram. 3. ACR Bi Rads Category: Category 0-"INCOMPLETE" (Needs Additional Imaging Evaluation)) - PATIENT: CARLOS,RIMMA ACCT: [id number] UNIT: [id number] : 1945 LOC: [facility] ROOM / BED: [address] [place] [address] AGE / SEX: 79 / F ADM STATUS: ADM IN SERVICE 0406 ORDERING PHYSICIAN: GENIA GOMEZ MD PROCEDURE(s): CXR1 - CHEST XRAY 1 VIEW REASON: Left upper extremity swelling ORDER NUMBER(s): [id number], ACCESSION NUMBER(s): [id number] CHEST RADIOGRAPH Indication: Left upper extremity swelling. Technique: Single frontal view of the chest was obtained Comparison: XY CHEST PORTABLE on DOS: 10/07/22 FINDINGS: Lines and Tubes: None Lungs: Left basilar opacity noted. Pleura: No effusion. No pneumothorax. Cardiomediastinal contours: Cardiomegaly. Bones: No acute osseous abnormality. IMPRESSION: 1. Left basilar opacity which may reflect atelectasis or pneumonia. 2. Cardiomegaly. - PATIENT: RIMMA GONZALEZ ACCT: [id number] : 1945 LOC: [facility] ROOM / BED: [facility]T / A AGE / SEX: 79 / F ADM STATUS: ADM IN SERVICE UNIT: [id number] ORDERING PHYSICIAN: MEG HODGE PROCEDURE(s): EKG - ELECTROCARDIGRAM ORDER NUMBER(s): [id number], ACCESSION NUMBER(s): [id number] [facility] Test Date: 2025-01-06 Test Time: 11:26:36 Pat Name: RIMMA GONZALEZ Department: Room: [facility] A Gender: F Material Handling Supervisor: RAYMUNDO : 1945 Requested By: MEG HODGE Order Number: [id number] Dorothy MD: Measurements Intervals [place] Rate: 110 P: 0 NM: 0 QRS: -48 QRSD: 131 T: 62 QT: 377 QTc: 511 Interpretive Statements Atrial fibrillation Ventricular premature complex Right bundle branch block Please click the below link to view image of tracing. 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 These include but are not limited to complications of anesthesia, postoperative infection, incomplete relief of symptoms, recurrence of symptoms, damage to blood vessels, nerves and tendons, deep venous thrombosis, pulmonary embolism and possible need for repeat surgery in the future. Estimated Blood Loss: minimal Findings: Left subclavian vein 99% stenosis treated to 20% residual stenosis with a 10 x 40 mm balloon Indications for Surgery: Left arm and breast swelling Name of Procedure Performed Left arm AV fistulogram and subclavian vein angioplasty Procedure Details Procedure Details: The patient was identified in the preop holding area. She was consented and preop by myself. She was brought back to the pathology lab technician please see pathology lab technician table supine position after adequate induction anesthesia antibiotics time-out. The left arm was prepped and draped normal surgical fashion. The patient has a left upper arm AV fistula which was anesthetized with 2% lidocaine. A 4 [place] micropuncture needle was used to cannulate AV fistula. This was exchanged for a 7 [place] sheath. Fistulogram was then performed which demonstrated widely patent left upper arm AV fistula with flow into the subclavian vein which had a 99% stenosis. There was collateralization performed in the bypass to fell into the central veins. At this point in time wire and catheter were manipulated up and across the stenosis. A 10 x 40 mm Conquest balloon was then used to angioplasty the critical 99% subclavian vein stenosis. The completion venogram demonstrated possibly 20% residual stenosis. At this point in time wires and catheter were removed. A 4 0 Monocryl subcuticular suture was used strength fashion to obtain hemostasis as the sheath was removed. Sterile dressing was applied. The patient was taken to the recovery room in stable condition. Specimen: none Condition Good Disposition Still a Patient NORBERT CORONA Jr., MD Jan 09, 2025 10:38 DICTATED BY:NORBERT CORONA Jr., MD DICTATED DATE/TIME:01/09/25 1038 ELECTRONICALLY SIGNED BY:NORBERT CORONA Jr., MD 01/09/25 1038 - PATIENT: RIMMA GONZALEZ ACCT: [id number] UNIT: [id number] : 1945 LOC: [facility] ROOM / BED: 0280T / A AGE / SEX: 79 / F ADM STATUS: ADM IN SERVICE 0612 ORDERING PHYSICIAN: BRAYDEN PALACIOS PROCEDURE(s): ECIDC - ECHO 2D MODE CARDIAC DOP REASON: chest pain ORDER NUMBER(s): [id number], ACCESSION NUMBER(s): [id number] APPROVED REPORT EXAM: Two-dimensional and M-mode echocardiogram with Doppler and color Doppler. Blood Pressure: 164/77 mmHg INDICATION Chest Pain RISK FACTORS Height: 5'2, Weight: 191 DIMENSIONS LVDd 3.9 (3.8-5.7cm) LA (2D) 4.3 (1.9-4.0cm) Aortic Root 2.5 (2.0- 3.7cm) LVDs 2.8 (2.5-4.0cm) LA (MM) (1.9-4.0cm) Aortic Cusp Exc 1.4 (1.5- 2.0cm) EF (%) 55.0 (55-70%) Rt. Atrium 3.5 (1.9-4.0cm) Asc. Aorta cm IVSd 1.0 (0.7-1.1cm) RV (D) (1.8-2.4cm) PWd 1.0 (0.7-1.1cm) Mitral Valve Mitral Mitral Stenosis E/A ratio 0.0 2D MVA cm2 Aortic Valve Aortic Valve Aortic Stenosis LVOT Diameter 1.7 (1.8-2.4cm) Doppler TAMRA cm2 Pulmonic Valve V2 1.06m/s Other Information Technically limited study due to patient inabilty to move, unable to remove top clothing fully in order to access apical window, heavy breathing and patient position. Conclusion Technically good study. Sinus rhythm. LVH. Left atrial enlargement. Thickening of the anterior mitral leaflet of notable degree with slight diminished excursion. Thickening and calcification at the base of the right coronary cusp. The tricuspid and pulmonic or structurally normal. The aortic is normal. Left ventricular function is preserved at 65% with normal RV function. Dopplers unremarkable. No pericardial effusion masses or vegetations. SIGNED BY: ROSEANNA GOMEZ Sr., MD SIGNED DATE/TIME: 01/06/25 1421 PATIENT: RIMMA GONZALEZ ACCT: [id number] : 1945 LOC: [facility] ROOM / BED: [address] [place] [address] AGE / SEX: 79 / F ADM STATUS: ADM IN SERVICE UNIT: [id number] ORDERING PHYSICIAN: ER PROCEDURE(s): EKG - ELECTROCARDIGRAM ORDER NUMBER(s): [id number], ACCESSION NUMBER(s): [id number] [facility] Test Date: 2025-01-05 Test Time: 03:31:40 Pat Name: RIMMA GONZALEZ Department: ED Room: [address] [place] [address] Gender: F Material Handling Supervisor: EYAD : 1945 Requested By: EMERGENCY EMERGENCY Order Number: [id number] Reading MD: Roseanna Gomez Measurements Intervals [place] Rate: 87 P: 57 NM: 159 QRS: 24 QRSD: 135 T: 34 QT: 412 QTc: 496 Interpretive Statements Sinus rhythm Supraventricular bigeminy Probable left atrial enlargement Right bundle branch block Electronically Signed On 01-05-2025 11:46:35 PST by Roseanna Gomez Please click the below link to view image of tracing. 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 treated with 10 x 40 mm balloon to 20% residual stenosis Left breast and upper extremity cellulitis Left-sided AV fistula arteriovenous fistula Left arm and breast swelling secondary to venous obstruction ESRD on hemodialysis with AV fistula Paroxysmal atrial fibrillation Type 2 diabetes mellitus - controlled (A1c 4.4) Essential hypertension Discharge Disposition: Home Discharge Instruct/Medications Diet: Renal Activity: No Restrictions, As Tolerated Follow Up/Referral: Follow up with [facility] for hemodialysis tomorrow morning as scheduled Medications: see prescription Continue home medications Scheduled Ascorbic Acid (Vitamin C Tablet), 1 TAB PO DAILY, (Reported) Carvedilol (Carvedilol), 1 TAB PO BID, (Reported) Cefdinir (Cefdinir), 300 MG PO BID Cranberry (Cranberry Juice Extract), 1,500 MG PO DAILY, (Reported) Folic Acid (Folic Acid), 1 MG PO DAILY, (Reported) Lovastatin (Lovastatin), 1 TAB PO DAILY, (Reported) Metoclopramide HCl (Metoclopramide Hydrochlor), 1 TAB PO BID, (Reported) Oxycodone W/ Acetaminophen (Percocet 5/325MG), 2 TAB PO TID, (Reported) Sitagliptin Phosphate (Januvia), 1 TAB PO DAILY, (Reported) Scheduled PRN Apixaban Base (Eliquis), 5 MG PO BID PRN Miscellaneous Medications Ferrous Sulfate (Iron (Ferrous Sulfate)), 65 MG PO, (Reported) Discharge Statement: "Patient was advised to return to the ER or call 911 if any headaches, dizziness, shortness of breath, chest pain, abdominal pain, bleeding, fevers, or worsening of medical condition. Patient was counseled about treatment plan, medications, possible side effects, patientverbalized understanding. All questions were answered to the best of my ability. 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
--- NOTE | 2025-01-11 15:09 | DVHPN2 ---
Progress Note - Dictate Date Seen: Jan 11, 2025 Medical Necessity Reason Pt with a Central, PICC or Fol: No Subjective Patient wants to go home vital signs Vital Sign Date Time Temp Pulse Resp B/P (MAP) Pulse Ox O2 Delivery O2 Flow Rate FiO2 01/11/25 12:54 99.5 87 16 117/60 (79) 98 99.5 01/11/25 08:10 Nasal Cannula* 2 28 Total Intake and Output 01/10/25 01/10/25 01/11/25 15:00 23:00 07:00 Intake Total 150 ml 1050 ml Balance 150 ml 1050 ml medications Current Medications Medications Dose Ordered Sig/Desiree Route Start Time Stop Time Status Last Admin Dose Admin Morphine Sulfate 2 mg Q30M PRN IV 01/05/25 06:15 Pantoprazole Sodium 40 mg DAILY@0600 PO 01/06/25 06:00 01/11/25 05:24 40 MG Acetaminophen/ Hydrocodone Bitart 1 tab Q6HPRN PRN PO 01/05/25 20:15 01/10/25 15:45 1 TAB Hydralazine HCl 10 mg Q6HP PRN IV 01/05/25 23:45 01/09/25 15:41 10 MG Carvedilol 25 mg Q12HR PO 01/06/25 22:00 01/11/25 11:21 25 MG Enoxaparin Sodium 90 mg DAILY SC 01/06/25 13:15 01/11/25 11:20 90 MG Vancomycin HCl 0 ml @ 0 mls/hr PER PHARMACY IV 01/07/25 11:45 Albuterol 1.25 mg Q4HPRN PRN NEB 01/08/25 01:15 01/11/25 11:59 1.25 MG Acetaminophen 650 mg Q4HP PRN PO 01/09/25 09:00 01/10/25 23:50 650 MG Meropenem 50 ml @ 17 mls/hr HS IV 01/09/25 22:00 01/10/25 21:58 17 MLS/HR objective HEENT: No evidence of JVD, no oral ulcers. Pulmonary: Lungs are clear on auscultation bilaterally Cardiovascular S1-S2, no S3 or S4 Abdomen: Bowel sounds positive, soft no rebound tenderness Skin: No rash Neurological: Alert, oriented, no focal weakness Hemodialysis access: Left upper arm AV fistula positive bruit and thrill, edema left hand and left breast laboratory and microbiology Laboratory Tests 01/11/25 06:05 Test 01/11/25 06:05 Range/Units Serum Glucose 130 H 74-106 mg/dL Assessment/Plan Assessment: ESRD on HD via left arm AVF TTS, status post fistulogram Left arm AV fistulogram and subclavian vein angioplasty DM type II pneumonia cellulitis HTN HLD asthma colon cancer s/p resection Hyperphosphatemia Secondary hyperparathyroidism Plan: Continue dialysis TTS, today dialysis was completed uneventfully low K diet Analgesics antibiotics per primary team Stable from Nephrology perspective for discharge. I discussed with the patient and advised she needs to show up at 7:45 a.m. tomorrow for her regular dialysis AMADO post HD as needed. goal Hb: 10-11 g/dl Thank you very much for allowing us to participate in the care of this patient please contact if you have any questions. Dietary Evaluation Review Comments: Nutrition Recommendation: 1) Nepro Carbsteady 240ml BID 2) Nephro-racquel 1 tab daily 3) Monitor PO intake, lab values, weight trend, and I/O Expected Outcomes/Goals: Intake to meet >75% estimated needs Lab values to improve FU 3-5 days Plan discussed with: Patient NENA SCHWARTZ MD Jan 11, 2025 15:09
== END 2025-01-11 20:42 | disposition home or self-care (01) | DRG 252 ==
LOC: ER 03:28 → EDBD 03:28 → OVERFLOW 06:08 → TELE-WESTW 01-06 02:05
PROVIDERS: ADMIT Internal Medicine Geriatric Medicine; ATTEND Internal Medicine Geriatric Medicine
PROC: 5A1D70Z Performance of Urinary Filtration, Intermittent, Less than 6 Hours Per Day (ICD-10-PCS; 2025-01-06)
PROC: 5A1D70Z Performance of Urinary Filtration, Intermittent, Less than 6 Hours Per Day (ICD-10-PCS; 2025-01-08)
PROC: 05763ZZ Dilation of Left Subclavian Vein, Percutaneous Approach (ICD-10-PCS; principal; 2025-01-09)
PROC: B51WYZZ Fluoroscopy of Dialysis Shunt/Fistula using Other Contrast (ICD-10-PCS; 2025-01-09)
PROC: 5A1D70Z Performance of Urinary Filtration, Intermittent, Less than 6 Hours Per Day (ICD-10-PCS; 2025-01-10)
DX: I87.1 Compression of vein (principal); J15.69 Pneumonia due to other Gram-negative bacteria; N18.6 End stage renal disease; J15.9 Unspecified bacterial pneumonia; I12.0 Hypertensive chronic kidney disease with stage 5 chronic kidney disease or end stage renal disease; E83.39 Other disorders of phosphorus metabolism; L03.114 Cellulitis of left upper limb; Z99.2 Dependence on renal dialysis; N61.1 Abscess of the breast and nipple; Z79.01 Long term (current) use of anticoagulants; E11.22 Type 2 diabetes mellitus with diabetic chronic kidney disease; J45.909 Unspecified asthma, uncomplicated; N25.81 Secondary hyperparathyroidism of renal origin; I48.0 Paroxysmal atrial fibrillation; E78.5 Hyperlipidemia, unspecified; Z20.822 Contact with and (suspected) exposure to COVID-19; Z88.6 Allergy status to analgesic agent; Z91.013 Allergy to seafood; Z88.8 Allergy status to other drugs, medicaments and biological substances; Z91.018 Allergy to other foods; Z88.0 Allergy status to penicillin; Z87.891 Personal history of nicotine dependence; Z79.899 Other long term (current) drug therapy; Z85.038 Personal history of other malignant neoplasm of large intestine; Z90.710 Acquired absence of both cervix and uterus; Z90.49 Acquired absence of other specified parts of digestive tract; Z86.718 Personal history of other venous thrombosis and embolism; Z83.3 Family history of diabetes mellitus; Z80.3 Family history of malignant neoplasm of breast; Z79.84 Long term (current) use of oral hypoglycemic drugs
CPT/HCPCS: 36415; 36901; 37248; 71045; 71250; 73200; 76000; 76642; 80048; 80053; 80076; 80202; 83036; 83735; 83880; 84484; 85025; 85610; 85730; 86704; 86706; 86708; 86803; 87040; 87081; 87340; 87426; 87804; 90935; 93005; 93306; 93971; 94640; 99152; C1894; G0378; J2185; J2250; Q9967

== ENCOUNTER 2025-01-15 06:06 | Inpatient (IN) | payer OTHER ==
[~2025-01-15] VITALS: Ht 167.6 cm; Wt 100.0 kg
[~2025-01-15 06:06] MED LIST changes: +APIX5TAB PO
--- NOTE | 2025-01-15 06:42 | ECG ---
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
[2025-01-15] MEDS: ALBUTEROL SULF 2.5 MG/0.5ML(0.5%) NEB SOLN NEB ONE (07:00)
[2025-01-15] MEDS ORDERED: FUROSEMIDE 40 MG/4 ML VIAL IV ONE (07:00)
[2025-01-15] MEDS: IPRATROPIUM BROM 0.5 MG/2.5ML INH SOL NEB ONE (07:00)
[2025-01-15] MEDS ORDERED: methylPREDNISolone SOD SUCC 125 MG/2 ML VL IV ONE (07:00)
--- NOTE | 2025-01-15 07:01 | ED.PDOC ---
SOB-HPI HPI Comments 89 y/o F, brought in by ambulance, with past medical history of asthma, HTN, and ESRD presents to the ED with a CC of shortness of breath. 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 Patient comments, being compliant with dialysis Tx; last full session was on (01/14/25). Patient denies fever, chills, sweats, chest pain, or palpitations. 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 HAND History Family History Family History: Reviewed,noncontributory to illness Social History Smoker: Non-Smoker Alcohol: Denies ETOH Use Drugs: Denies Drug Use Lives In: Home Constitutional: denies: chills, diaphoresis, fatigue, fever, malaise, sweats, weakness, others EENTM: denies: blurred vision, double vision, ear bleeding, ear discharge, ear drainage, ear pain, ear ringing, eye pain, eye redness, hearing loss, mouth pain, mouth swelling, nasal discharge, nose bleeding, nose congestion, nose pain, photophobia, tearing, throat pain, throat swelling, voice changes, others Respiratory: reports: cough, shortness of breath; denies: hemoptysis, orthopnea, SOB at rest, SOB with excertion, stridor, wheezing, others Cardiovascular: denies: chest pain, dizzy spells, diaphoresis, Dyspnea on exertion, edema, irregular heart beat, left arm pain, lightheadedness, palpitations, PND, syncope, others Gastrointestinal: denies: abdomen distended, abdominal pain, blood streaked bowels, constipated, diarrhea, dysphagia, difficulty swallowing, hematemesis, melena, nausea, poor appetite, poor fluid intake, rectal bleeding, rectal pain, vomiting, others Genitourinary: denies: abnormal vagina bleeding, burning, dyspareunia, dysuria, flank pain, frequency, hematuria, incontinence, pain, , vagina d ischarge, urgency, others Neurological: denies: dizziness, fainting, headache, left sided numbness, left sided weakness, numbness, paresthesia, pre-existing deficit, right sided numbness, right sided weakness, seizure, speech problems, tingling, tremors, weakness, others Musculoskeletal: denies: back pain, gout, joint pain, joint swelling, muscle pain, muscle stiffness, neck pain, others Integumetry: denies: bruises, change in color, change in hair/nails, dryness, laceration, lesions, lumps, rash, wounds, others Allergic/Immunocompromised: denies: Difficulty Healing, Frequent Infections, Hives, Itching, others Hematologic/Lymphatic: denies: anemia, blood clots, easy bleeding, easy bruising, swollen glands, others Endocrine: denies: excessive hunger, excessive sweating, excessive thirst, excessive urination, flushing, intolerance to cold, intolerance to heat, unexplained weight gain, unexplained weight loss, others Psychiatric: denies: anxiety, bipolar disorder, depression, hopeless, panic disorder, schizophrenia, sleepless, suicidal, others All Other Systems: Reviewed and Negative Physical Exam General Appearance: Moderate Distress HEENT: Normal ENT Inspection, Pharynx Normal, TMs Normal Neck: Full Range of Motion, Non-Tender, Normal, Normal Inspection Respiratory: Chest Non-Tender, Lungs Clear, No Accessory Muscle Use, No Respiratory Distress, Normal Breath Sounds Cardiovascular: No Edema, No JVD, No Murmur, No Gallop, Normal Peripheral Pulses, Regular Rate/Rhythm Breast Exam: Deferred Gastrointestinal: No Organomegaly, Non Tender, No Pulsatile Mass, Normal Bowel Sounds, Soft Genitalia: Deferred Pelvic: Deferred Rectal: Deferred Extremities: No calf tenderness, Normal capillary refill, Normal inspection, Normal range of motion, Non-tender, No pedal edema Musculoskeletal : Apperance: Normal Neurologic: Alert, health equipment servicer II-XII nml as Tested, No Motor Deficits, Normal Affect, Normal Mood, No Sensory Deficits Cerebellar Function: Normal Reflexes: Normal Skin: Dry, Normal Color, Warm Peripheral Pulses: 3+ Radial (R), 3+ Radial (L) Lymphatic: No Adenopathy EKG EKG : Pulse Rate (adult): 71 [place]: Normal Cardiac Rhythm: NSR Block: RBBB Hypertrophy: None ST: Normal Was a procedure done? Was a procedure done?: No Differential Dx Differential Diagnosis: Anxiety, Asthma, Bronchitis, Pneumonia, Sinusitis, Pharyngitis, URI X-Ray, Labs, Meds, VS Vital Signs Date Time Temp Pulse Resp B/P (MAP) Pulse Ox O2 Delivery O2 Flow Rate FiO2 01/15/25 07:01 18 96 Room Air* 0 21 01/15/25 07:01 71 01/15/25 06:23 98.5 68 18 151/64 95 98.5 01/15/25 06:12 71 Lab Test 01/15/25 07:09 Range/Units White Blood Count 4.1 L 4.4-10.8 10^3/uL Red Blood Count 3.33 L 4.0-5.20 10^6/uL Hemoglobin 10.1 L 12.2-16.2 g/dL Hematocrit 31.7 L 36.0-46.0 % Mean Corpuscular Volume 95.3 80.0-100.0 fL Mean Corpuscular Hemoglobin 30.3 28.0-32.0 pg Mean Corpuscular Hemoglobin Concent 31.8 L 32.0-36.0 g/dL Red Cell Distribution Width 18.3 H 11.8-14.3 % Platelet Count 168 140-450 10^3/uL Mean Platelet Volume 9.8 6.9-10.8 fL Neutrophils (%) (Auto) 50.6 37.0-80.0 % Lymphocytes (%) (Auto) 33.3 10.0-50.0 % Monocytes (%) (Auto) 11.0 0.0-12.0 % Eosinophils (%) (Auto) 4.1 0.0-7.0 % Basophils (%) (Auto) 1.0 0.0-2.0 % Neutrophils # (Auto) 2.1 1.6-8.6 10 ^3/uL Lymphocytes # (Auto) 1.4 0.4-5.4 10 ^3/uL Monocytes # (Auto) 0.5 0-1.3 10 ^3/uL Eosinophils # (Auto) 0.2 0-0.8 10 ^3/uL Basophils # (Auto) 0 0-0.2 10 ^3/uL Nucleated Red Blood Cells 0.1 % Sodium Level 139 136-145 mmol/L Potassium Level 3.4 L 3.5-5.1 mmol/L Chloride Level 98 98-107 mmol/L Carbon Dioxide Level 31 20-31 mmol/L Anion Gap 10 5-15 Blood Urea Nitrogen 18 9-23 mg/dL Creatinine 6.25 H 0.550-1.02 mg/dL Glomerular Filtration Rate Calc 6 >90 mL/min BUN/Creatinine Ratio 2.9 L 10.0-20.0 Serum Glucose 133 H 74-106 mg/dL Calcium Level 9.2 8.7-10.4 mg/dL Troponin I High Sensitivity 21 </=34 ng/L B-Type Natriuretic Peptide Pending Current Medications Medications (Trade) Dose Ordered Sig/Desiree Route Start Time Stop Time Status Last Admin Albuterol (Ventolin Medneb) 5 mg ONCE ONCE NEB 01/15/25 07:00 01/15/25 07:01 DC 01/15/25 07:00 Ipratropium [place] (Atrovent Medneb) 0.5 mg ONCE ONCE NEB 01/15/25 07:00 01/15/25 07:01 DC 01/15/25 07:00 Patient alert. Came in because of shortness a breath. Was given breathing treatment. Has a kidney disease. Dialysis. Anemia. Blood pressure elevated. Chest x-ray reviewed does show CHF. Potassium is low. Was given potassium. Explained to the patient. Continue monitoring. [place] [id number] Ph: [phone] DIAGNOSTIC IMAGING Diagnostic Imaging Report : [id number] Signed PATIENT: RIMMA GONZALEZ ACCT: [id number] UNIT: [id number] : 1945 LOC: ER ROOM / BED: / AGE / SEX: 79 / F ADM STATUS: REG ER SERVICE [id number] ORDERING PHYSICIAN: ALEKSANDRA SHARMA MD PROCEDURE(s): CXRP - CHEST PORTABLE REASON: sob ORDER NUMBER(s): [id number], ACCESSION NUMBER(s): [id number] CHEST RADIOGRAPH Indication: sob Technique: Single frontal view of the chest was obtained COMPARISON: CT CHEST WITHOUT CONTRAST on DOS: 01/05/25, XY CHEST XRAY 1 VIEW on DOS: 01/05/25, XY CHEST PORTABLE on DOS: 10/07/22 FINDINGS: Lines and Tubes: None Lungs: Mild vascular congestion Pleura: Trace bilateral pleural effusions. No pneumothorax. Cardiomediastinal contours: Cardiomegaly Bones: Unremarkable IMPRESSION: Cardiomegaly and mild pulmonary vascular congestion. Trace bilateral pleural effusions. ATED BY: ADA SHEARER MD DICTATED DATE/TIME: 01/15/25737 SIGNED BY: ADA SHEAERR MD SIGNED DATE/TIME: 01/15/25737 CC: Time of 1ST Reevaluation: 07:05 Reevaluation 1ST: Unchanged Patient Education/Counseling: Diagnosis, Treatment Family Education/Counseling: No Family Present SEPSIS Sepsis Screen Date sepsis recognized/suspect: Jan 15, 2025 Time Sepsis recognized/suspect: 629 Recent Procedure: No On Antibiotic Therapy: No Respiratory Rate >20: No Heart Rate >90: No Temp<36 C (96.8 F) or >38.3 C: No SBP <90 or MAP <65 mmHG: No New Acute Mental Status Change: No Is the patient on CPAP, BIPAP,: No Physician Orders B-Type Natriuretic Peptide (01/15/25 06:56) Chest Portable (01/15/25 06:56) Urinalysis (01/15/25 06:56) Vital Signs Date Time Temp Pulse Resp B/P (MAP) Pulse Ox O2 Delivery O2 Flow Rate FiO2 01/15/25 07:01 18 96 Room Air* 0 21 01/15/25 07:01 71 01/15/25 06:23 98.5 68 18 151/64 95 98.5 01/15/25 06:12 71 Laboratory Tests Test 01/15/25 07:09 White Blood Count 4.1 10^3/uL (4.4-10.8) L Medications Medications Dose Ordered Sig/Desiree Route Start Time Stop Time Status Last Admin Dose Admin Albuterol 5 mg ONCE ONCE NEB 01/15/25 07:00 01/15/25 07:01 DC 01/15/25 07:00 Ipratropium [place] 0.5 mg ONCE ONCE NEB 01/15/25 07:00 01/15/25 07:01 DC 01/15/25 07:00 Departure 1 Departure Time of Disposition: 07:56 Impression: Primary Impression: Acute respiratory distress Additional Impressions: End stage renal disease on dialysis CHF (congestive heart failure) Qualified Codes: I50.43 - Acute on chronic combined systolic (congestive) and diastolic (congestive) heart failure Disposition: 09 ADMITTED INPATIENT Admit to: Med Surg Condition: Guarded Critical Care Note Critical Care Time?: Yes (90 min-critical care time only) Stability Stability form required: No Heart Score Heart Score: Heart Score Response (Comments) Value History Slightly Suspicious 0 EKG Normal 0 Age >65 2 Risk Factors >3 or Hx ASHD 2 Troponin Normal limit 0 Total 4 I personally scribed for ALEKSANDRA SHARMA MD ([email or web address]) on 01/15/25 at 07:01. Electronically submitted by Brenda Hammond ([employer]). I personally scribed for ALEKSANDRA SHARMA MD ([email or web address]) on 01/15/25 at 08:05. Electronically submitted by Brenda Hammond ([employer]). I personally scribed for ALEKSANDRA SHARMA MD ([email or web address]) on 01/15/25 at 08:05. Electronically submitted by Brenda Hammond ([employer]). ALEKSANDRA SHARMA MD Jan 15, 2025 07:01
[2025-01-15 07:31] LABS: Hemoglobin 10.1 g/dL (12.2-16.2); Nucleated Red Blood Cells % 0.1 %
[2025-01-15 07:35] LABS: Hematocrit 31.7 % (36.0-46.0); Mean Corpuscular Hemoglobin 30.3 pg (28.0-32.0); Mean Corpuscular Volume 95.3 fL (80.0-100.0)
--- NOTE | 2025-01-15 07:41 | DVH ---
CHEST RADIOGRAPH Indication: sob Technique: Single frontal view of the chest was obtained COMPARISON: CT CHEST WITHOUT CONTRAST on DOS: 01/05/25, XY CHEST XRAY 1 VIEW on DOS: 01/05/25, XY CHEST PORTABLE on DOS: 10/07/22 FINDINGS: Lines and Tubes: None Lungs: Mild vascular congestion Pleura: Trace bilateral pleural effusions. No pneumothorax. Cardiomediastinal contours: Cardiomegaly Bones: Unremarkable IMPRESSION: Cardiomegaly and mild pulmonary vascular congestion. Trace bilateral pleural effusions.
[2025-01-15 07:53] LABS: Anion Gap 10 (5-15); Sodium 139 mmol/L (136-145)
[2025-01-15 07:54] LABS: Calcium 9.2 mg/dL (8.7-10.4)
[2025-01-15 07:57] LABS: Carbon Dioxide 31 mmol/L (20-31); Chloride 98 mmol/L (98-107); Potassium 3.4 mmol/L (3.5-5.1)
[2025-01-15 07:59] LABS: BUN/Creatinine Ratio 2.9 (10.0-20.0); Blood Urea Nitrogen 18 mg/dL (9-23); Glucose 133 mg/dL (74-106)
[2025-01-15] MEDS ORDERED: POTASSIUM EFFERVESENT TAB 25 MEQ PO ONE (08:00)
[2025-01-15] MEDS ORDERED: AZITHROMYCIN 500MG/250ML 250 ML IV SCH (10:15)
[2025-01-15] MEDS ORDERED: CARVEDILOL 12.5 MG TAB PO SCH (10:15)
[2025-01-15] MEDS ORDERED: DEXTROSE (50%) 50ML SYRG IV PRN (10:15)
[2025-01-15 10:30] VITALS: BP 151/64; PULSE 71; RESP 18; TEMP 98; O2SAT 95
--- NOTE | 2025-01-15 11:26 | DVHHP2 ---
History of Present Illness Reason for Visit: SOB History of Present Illness A 79-year-old female with PMHx of ESRD on HD via AV fistula, T2DM, HTN, HLD, asthma, Afib and prior colon cancer presented with progressive shortness of breath and cough. She was recently admitted and discharged on 01/11 after an AV fistula malfunction; during that admission, vascular surgery (Dr. Lopez) performed a fistulogram showing 99% subclavian vein stenosis, treated with angioplasty. She improved clinically and was discharged. The patient reports that two days ago she began experiencing worsening dyspnea and wheezing consistent with her prior asthma flares. She states her last HD session was Thursday, and she feels overall better today compared with when she arrived, but still more short of breath than her baseline. She denies fever, chills, chest pain, orthopnea, or lower-extremity edema. She notes increased cough, non-productive. No sick contacts. Initial labs show CBC unchanged from prior admission, with no leukocytosis and anemia of chronic disease. Platelets stable. Chemistry shows mild hypokalemia and ESRD-level Cr around 6, consistent with her baseline. BNP today is 200, improved from 500 during her prior admission. No evidence of volume overload on exam. CXR is Cardiomegaly and mild pulmonary vascular congestion and Trace bilateral pleural effusions. She was recently discharged on Eliquis for AV fistula thrombosis prevention and recently afib . The patient moved to [place], previously she used to live here, this time unfortunately the patient came to attend her daughter's , who recently Allergies: Penicillin, aspirin, gabapentin, Tea tree well, oranges, shrimp, lidocaine or Novocain or some anesthetics the patient can not recall which was used during her surgery in [place]. Past medical history: [id number] diabetes mellitus, ESRD on dialysis, hypertension, asthma Smoking: Quit 15 years ago. Previously 1 pack per 2 months occasionally. Twenty-five pack years Alcohol: Quit. Last drink several years ago Drugs: Previously marijuana. Does not use drugs Code status: Full code Review of Systems Review of Systems Per HPI Allergies: Coded Allergies: Aspirin (Verified Allergy, Unknown, 10/07/22) Gabapentin (Verified Allergy, Unknown, 01/15/25) Penicillins (Verified Allergy, Unknown, 10/07/22) Shellfish Allergy (Verified Allergy, Unknown, 01/15/25) Medications Current Medications Medications Dose Ordered Sig/Desiree Route Start Time Stop Time Status Last Admin Dose Admin Albuterol 2.5 mg Q6HPRN PRN NEB 01/15/25 10:15 Ipratropium [place] 0.5 mg Q6HWA NEB 01/15/25 12:00 Methylprednisolone Sodium Succinate 40 mg DAILY IV 01/16/25 10:00 Apixaban 5 mg BID PO 01/15/25 22:00 Diagnostic Test (Pha) 1 strip ACHS 01/15/25 11:30 Insulin Human Regular ACHS SC 01/15/25 11:30 Dextrose 50 ml UD PRN IV 01/15/25 10:15 Ceftriaxone Sodium 50 ml @ 100 mls/hr DAILY@09 IV 01/15/25 10:15 Azithromycin 250 ml @ 125 mls/hr DAILY IV 01/15/25 10:15 Carvedilol 25 mg Q12HR PO 01/15/25 10:15 Exam Vital Signs Vital Signs Date Time Temp Pulse Resp B/P (MAP) Pulse Ox O2 Delivery O2 Flow Rate FiO2 01/15/25 10:30 98.0 71 18 151/64 95 0.0 21 98.0 01/15/25 07:01 Room Air* Exam General: Alert, oriented, speaking full sentences but mildly dyspneic. No acute distress. HEENT: NC/AT. Mucous membranes moist. No JVD appreciated. Chest: Diffuse expiratory wheezes bilaterally, prolonged expiratory phase. No crackles. No rhonchi. Cardiac: RRR, no murmurs, no rubs or gallops. Abdomen: Soft, NT/ND, normal bowel sounds. Extremities: No peripheral edema. AV fistula in LUE with palpable thrill. No erythema or tenderness. Neuro: No focal deficits. Skin: No rash, no cyanosis. Labs/Xrays Labs Test 01/15/25 07:09 Range/Units White Blood Count 4.1 L 4.4-10.8 10^3/uL Red Blood Count 3.33 L 4.0-5.20 10^6/uL Hemoglobin 10.1 L 12.2-16.2 g/dL Hematocrit 31.7 L 36.0-46.0 % Mean Corpuscular Volume 95.3 80.0-100.0 fL Mean Corpuscular Hemoglobin 30.3 28.0-32.0 pg Mean Corpuscular Hemoglobin Concent 31.8 L 32.0-36.0 g/dL Red Cell Distribution Width 18.3 H 11.8-14.3 % Platelet Count 168 140-450 10^3/uL Mean Platelet Volume 9.8 6.9-10.8 fL Neutrophils (%) (Auto) 50.6 37.0-80.0 % Lymphocytes (%) (Auto) 33.3 10.0-50.0 % Monocytes (%) (Auto) 11.0 0.0-12.0 % Eosinophils (%) (Auto) 4.1 0.0-7.0 % Basophils (%) (Auto) 1.0 0.0-2.0 % Neutrophils # (Auto) 2.1 1.6-8.6 10 ^3/uL Lymphocytes # (Auto) 1.4 0.4-5.4 10 ^3/uL Monocytes # (Auto) 0.5 0-1.3 10 ^3/uL Eosinophils # (Auto) 0.2 0-0.8 10 ^3/uL Basophils # (Auto) 0 0-0.2 10 ^3/uL Nucleated Red Blood Cells 0.1 % Sodium Level 139 136-145 mmol/L Potassium Level 3.4 L 3.5-5.1 mmol/L Chloride Level 98 98-107 mmol/L Carbon Dioxide Level 31 20-31 mmol/L Anion Gap 10 5-15 Blood Urea Nitrogen 18 9-23 mg/dL Creatinine 6.25 H 0.550-1.02 mg/dL Glomerular Filtration Rate Calc 6 >90 mL/min BUN/Creatinine Ratio 2.9 L 10.0-20.0 Serum Glucose 133 H 74-106 mg/dL Calcium Level 9.2 8.7-10.4 mg/dL Troponin I High Sensitivity 21 </=34 ng/L B-Type Natriuretic Peptide 289.60 0-100 pg/mL SEPSIS Sepsis Screen Date sepsis recognized/suspect: Jan 15, 2025 Time Sepsis recognized/suspect: 629 Recent Procedure: No On Antibiotic Therapy: No Respiratory Rate >20: No Heart Rate >90: No Temp<36 C (96.8 F) or >38.3 C: No SBP <90 or MAP <65 mmHG: No New Acute Mental Status Change: No Is the patient on CPAP, BIPAP,: No Physician Orders Chest Portable (01/15/25 06:56) Urinalysis (01/15/25 06:56) Admit (01/15/25 10:11) Code Status (01/15/25 10:11) Vital Signs .PER UNIT PROTOCOL (01/15/25 10:11) Review Orders With Adm.Md (01/15/25 10:11) Consistent Carb(Ccho)Diabetes (01/15/25 Lunch) Notify Md Of Changes From Base (01/15/25 10:11) Advance Directive (01/15/25 10:11) Patient Condition (01/15/25 10:11) Allergies (01/15/25 10:11) Ambulate Every 4hours Q4H (01/15/25 10:11) Albuterol Medneb (Ventolin Medneb) (01/15/25 10:15) Ipratropium Medneb (Atrovent Medneb) (01/15/25 12:00) Methylprednisolone Sod Succ (Solu Medrol (01/16/25 10:00) Communication Order (01/15/25 10:11) Apixaban (Eliquis) (01/15/25 22:00) Glucose Blood (Accu-Chek Comfort Curve T (01/15/25 11:30) Insulin R (Human) (Insulin R) (01/15/25 11:30) Dextrose 50% Syringe (01/15/25 10:15) Ceftriaxone 1gm/50ml (Rocephin) (01/15/25 10:15) Azithromycin 500mg/250ml (Zithromax 500m (01/15/25 10:15) Carvedilol Tablet (Coreg Tablet) (01/15/25 10:15) Vital Signs Date Time Temp Pulse Resp B/P (MAP) Pulse Ox O2 Delivery O2 Flow Rate FiO2 01/15/25 10:30 98.0 71 18 151/64 95 0.0 21 98.0 01/15/25 07:01 18 96 Room Air* 0 21 01/15/25 07:01 71 01/15/25 06:23 98.5 68 18 151/64 95 98.5 01/15/25 06:12 71 Laboratory Tests Test 01/15/25 07:09 White Blood Count 4.1 10^3/uL (4.4-10.8) L Medications Medications Dose Ordered Sig/Desiree Route Start Time Stop Time Status Last Admin Dose Admin Albuterol 5 mg ONCE ONCE NEB 01/15/25 07:00 01/15/25 07:01 DC 01/15/25 07:00 5 MG Ipratropium [place] 0.5 mg ONCE ONCE NEB 01/15/25 07:00 01/15/25 07:01 DC 01/15/25 07:00 0.5 MG Assessment/Plan Assessment/Plan 79-year-old female with PMHx of ESRD on HD, T2DM, HTN, HLD, asthma, afib and prior colon cancer presenting with acute shortness of breath most consistent with an asthma/COPD exacerbation, improving with treatment in the ED. Asthma/COPD Exacerbation Presentation with cough, wheezing, dyspnea, and exam with diffuse wheezes suggests asthma/COPD flare. No leukocytosis, afebrile, and BNP improved (200 vs 500 prior), arguing against infectious pneumonia or fluid overload. Start DuoNebs q6h PRN, solumedrol BID, start empiric antibiotics: ceftriaxone and azithromycin, oxygen PRN to maintain sats >92%. Monitor for response. ESRD on HD TTS schedule Last HD Thursday. Cr at baseline. Euvolemic on exam. No urgent indication for dialysis today. Plan: If hospitalized until Thursday, consult nephrology for HD scheduling. Monitor potassium; replete cautiously. Avoid nephrotoxic meds. Continue home renal diet. Recent Subclavian Stenosis with Angioplasty Paroxysmal atrial fibrillation AV fistula recently declotted with fistulogram revealing 99% subclavian stenosis; angioplasty performed and fistula now functional with good thrill. Continue Eliquis as ordered from recent discharge. Monitor fistula site. No s igns of infection or thrombosis. HTN BP stable. BNP improved. No evidence of CHF exacerbation. Plan: Continue carvedilol T2DM Sliding-scale insulin while inpatient. Monitor glucose with steroids. History of Colon Cancer No acute issues. Disposition Admit for asthma/COPD exacerbation management, close monitoring, and possible HD needs depending on clinical course. Case discussed with Dr Brennan Plan discussed with: Patient, Other (rn) My Orders Orders - ARIELLA BAKER Procedure Category Date Status Time Admit ADMIT 01/15/25 Transmitted 10:11 Code Status CODE 01/15/25 Transmitted 10:11 Vital Signs TONO 01/15/25 In Process 10:11 Review Orders With [facility] 01/15/25 In Process Adm. 10:11 Consistent DIET 01/15/25 [facility] Lunch Notify Md Of Changes [facility] 01/15/25 In Process From Base 10:11 Advance Directive [facility] 01/15/25 In Process 10:11 Patient Condition ORDERS 01/15/25 Transmitted 10:11 Allergies TONO 01/15/25 In Process 10:11 Ambulate Every 4hours TONO 01/15/25 In Process 10:11 Albuterol Medneb PHA 01/15/25 In Process (Ventolin Medneb) 10:15 Ipratropium Medneb PHA 01/15/25 In Process (Atrovent Medneb) 12:00 Methylprednisolone PHA 01/16/25 In Process Sod Succ (Solu Medrol 10:00 Communication Order ORDERS 01/15/25 Transmitted 10:11 Apixaban (Eliquis) PHA 01/15/25 In Process 22:00 Glucose Blood PHA 01/15/25 In Process (Accu-Chek Comfort 11:30 Insulin R (Human) PHA 01/15/25 In Process (Insulin R) 11:30 Dextrose 50% Syringe PHA 01/15/25 In Process 10:15 Ceftriaxone 1gm/50ml PHA 01/15/25 In Process (Rocephin) 10:15 Azithromycin PHA 01/15/25 In Process 500mg/250ml 10:15 Carvedilol Tablet PHA 01/15/25 In Process (Coreg Tablet) 10:15 Date of Service: Jan 15, 2025 Billing Provider: AG BRENNAN MD Common Visit Codes: [id number] INP/OBS CARE (HIGH) ARIELLA BAKER RESIDENT Jan 15, 2025 11:26
[2025-01-15] MEDS ORDERED: InsuLIN REG 1unit/0.01ml Soln (100units/ml) SC SCH (11:30)
[2025-01-15] MEDS ORDERED: ACCU-CHEK COMFORT CURVE STRIP VI SCH (11:30)
[2025-01-15 11:31] VITALS: PULSE 74; RESP 16; O2SAT 98
[2025-01-15] MEDS: ALBUTEROL SULF 2.5 MG/0.5ML(0.5%) NEB SOLN NEB PRN (11:31)
[2025-01-15] MEDS: IPRATROPIUM BROM 0.5 MG/2.5ML INH SOL NEB SCH (11:31)
[2025-01-15 11:37] VITALS: PULSE 74; RESP 16; O2SAT 100
[2025-01-15 14:38] VITALS: BP 118/77; PULSE 79; RESP 16; TEMP 97.5; O2SAT 97
[2025-01-15] MEDS ORDERED: APIXABAN 5 MG TAB PO SCH (22:00)
[2025-01-16] MEDS ORDERED: methylPREDNISolone SOD SUCC 40 MG/ML VL IV SCH (10:00)
--- NOTE | 2025-01-16 11:50 | DVHDSRES ---
Discharge Summary Date of Admission Resident Creating Document: ARIELLA BAKER RESIDENT Jan 15, 2025 at 10:11 Date of Discharge: Jan 15, 2025 Admitting Diagnosis Asthma exacerbation Labs/Diagnostic Data: Laboratory Results Test 01/15/25 07:09 White Blood Count 4.1 10^3/uL (4.4-10.8) Red Blood Count 3.33 10^6/uL (4.0-5.20) Hemoglobin 10.1 g/dL (12.2-16.2) Hematocrit 31.7 % (36.0-46.0) Mean Corpuscular Volume 95.3 fL (80.0-100.0) Mean Corpuscular Hemoglobin 30.3 pg (28.0-32.0) Mean Corpuscular Hemoglobin Concent 31.8 g/dL (32.0-36.0) Red Cell Distribution Width 18.3 % (11.8-14.3) Platelet Count 168 10^3/uL (140-450) Mean Platelet Volume 9.8 fL (6.9-10.8) Neutrophils (%) (Auto) 50.6 % (37.0-80.0) Lymphocytes (%) (Auto) 33.3 % (10.0-50.0) Monocytes (%) (Auto) 11.0 % (0.0-12.0) Eosinophils (%) (Auto) 4.1 % (0.0-7.0) Basophils (%) (Auto) 1.0 % (0.0-2.0) Neutrophils # (Auto) 2.1 10 ^3/uL (1.6-8.6) Lymphocytes # (Auto) 1.4 10 ^3/uL (0.4-5.4) Monocytes # (Auto) 0.5 10 ^3/uL (0-1.3) Eosinophils # (Auto) 0.2 10 ^3/uL (0-0.8) Basophils # (Auto) 0 10 ^3/uL (0-0.2) Nucleated Red Blood Cells 0.1 % Sodium Level 139 mmol/L (136-145) Potassium Level 3.4 mmol/L (3.5-5.1) Chloride Level 98 mmol/L (98-107) Carbon Dioxide Level 31 mmol/L (20-31) Anion Gap 10 (5-15) Blood Urea Nitrogen 18 mg/dL (9-23) Creatinine 6.25 mg/dL (0.550-1.02) Glomerular Filtration Rate Calc 6 mL/min (>90) BUN/Creatinine Ratio 2.9 (10.0-20.0) Serum Glucose 133 mg/dL (74-106) Calcium Level 9.2 mg/dL (8.7-10.4) Troponin I High Sensitivity 21 ng/L (</=34) B-Type Natriuretic Peptide 289.60 pg/mL (0-100) Other Laboratory Tests 01/15/25 07:09 Brief Hx & Hospital Course: The patient is a 79-year-old female with a history of ESRD on hemodialysis via AV fistula, type 2 diabetes mellitus, hypertension, hyperlipidemia, asthma, atrial fibrillation, and prior colon cancer who presented with progressive shortness of breath and cough. She was recently hospitalized on 01/11 for AV fistula malfunction and underwent a fistulogram revealing 99% subclavian vein stenosis, treated with angioplasty by vascular surgery. She improved and was discharged on Eliquis for thrombosis prevention and atrial fibrillation. Two days prior to this admission, she developed worsening dyspnea and wheezing consistent with prior asthma exacerbations. She denied fever, chest pain, orthopnea, or edema. On arrival, she was clinically stable, afebrile, and reported feeling better than at onset but still more short of breath than baseline. Labs showed stable CBC without leukocytosis, anemia of chronic disease, mild hypokalemia, and creatinine at baseline. BNP was 200, improved from 500 during her prior admission. Chest X-ray demonstrated cardiomegaly, mild pulmonary vascular congestion, and trace bilateral pleural effusions without evidence of pneumonia or significant fluid overload. The patient was treated for an asthma/COPD exacerbation with DuoNebs, IV Solumedrol, empiric antibiotics (ceftriaxone and azithromycin), and supplemental oxygen as needed. She remained euvolemic with no urgent indication for dialysis; nephrology follow-up was planned if hospitalization extended beyond Thursday. Her AV fistula site was intact with good thrill and no signs of infection or thrombosis. Blood pressure remained stable on carvedilol, and glucose was monitored with sliding-scale insulin while on steroids. No acute issues related to her history of colon cancer were noted. Despite counseling on the risks and benefits of continued inpatient care, the patient elected to leave against medical advice. She was advised to continue Eliquis, carvedilol, and her renal diet, and to follow up promptly with nephrology for dialysis scheduling and with her primary care and pulmonology teams for ongoing management. Case discussed with Dr Lucero Condition at Discharge: Poor Final Diagnosis/Problems List Asthma/COPD Exacerbation ESRD on HD TTS schedule Recent Subclavian Stenosis with Angioplasty Paroxysmal atrial fibrillation HTN T2DM History of Colon Cancer Discharge Disposition: AMA Discharge Instruct/Medications Scheduled Ascorbic Acid (Vitamin C Tablet), 1 TAB PO DAILY, (Reported) Carvedilol (Carvedilol), 1 TAB PO BID, (Reported) Cranberry (Cranberry Juice Extract), 1,500 MG PO DAILY, (Reported) Folic Acid (Folic Acid), 1 MG PO DAILY, (Reported) Lovastatin (Lovastatin), 1 TAB PO DAILY, (Reported) Oxycodone W/ Acetaminophen (Percocet 5/325MG), 2 TAB PO TID, (Reported) Sitagliptin Phosphate (Januvia), 1 TAB PO DAILY, (Reported) Scheduled PRN Apixaban Base (Eliquis), 5 MG PO BID PRN Miscellaneous Medications Ferrous Sulfate (Iron (Ferrous Sulfate)), 65 MG PO, (Reported) Discontinued Medications Cefdinir (Cefdinir), 300 MG PO BID Metoclopramide HCl (Metoclopramide Hydrochlor), 1 TAB PO BID, (Reported) Discharge Statement: "Patient was advised to return to the ER or call 911 if any headaches, dizziness, shortness of breath, chest pain, abdominal pain, bleeding, fevers, or worsening of medical condition. Patient was counseled about treatment plan, medications, possible side effects, patientverbalized understanding. All questions were answered to the best of my ability. This discharge took greater then 30 minutes in planning, reviewing documentation, counseling the patient, and discussing with other team members." ASSESSMENT ASSESSMENT Assessment ARIELLA BAKER Jan 16, 2025 11:50 AG LUCERO MD Jan 18, 2025 19:38
== END 2025-01-15 18:15 | disposition left against medical advice (07) | DRG 177 ==
LOC: EDBD 06:06 → ER 06:06 → OVERFLOW 10:11
PROVIDERS: ATTEND Emergency Medicine
DX: J15.69 Pneumonia due to other Gram-negative bacteria (principal); I50.31 Acute diastolic (congestive) heart failure; N18.6 End stage renal disease; I13.2 Hypertensive heart and chronic kidney disease with heart failure and with stage 5 chronic kidney disease, or end stage renal disease; J45.901 Unspecified asthma with (acute) exacerbation; J44.0 Chronic obstructive pulmonary disease with (acute) lower respiratory infection; Z99.2 Dependence on renal dialysis; J15.9 Unspecified bacterial pneumonia; Z79.01 Long term (current) use of anticoagulants; I70.8 Atherosclerosis of other arteries; E11.22 Type 2 diabetes mellitus with diabetic chronic kidney disease; J44.1 Chronic obstructive pulmonary disease with (acute) exacerbation; I48.0 Paroxysmal atrial fibrillation; E87.6 Hypokalemia; E78.5 Hyperlipidemia, unspecified; Z53.29 Procedure and treatment not carried out because of patient's decision for other reasons; Z88.0 Allergy status to penicillin; Z91.013 Allergy to seafood; Z88.6 Allergy status to analgesic agent; Z87.891 Personal history of nicotine dependence; Z85.038 Personal history of other malignant neoplasm of large intestine; Z79.84 Long term (current) use of oral hypoglycemic drugs
CPT/HCPCS: 36415; 71045; 80048; 83880; 84484; 85025; 93005; 94640; 99291; 99292; G0378